=== PATIENT | female | born 1960 | race Caucasian/White ===

== ENCOUNTER → 2018-05-26 10:16 | Outpatient (CLI) | payer OTHER, SELFPAY ==
--- NOTE | 2018-05-26 | DI.MG.S_ITS ---
BILATERAL DIGITAL SCREENING MAMMOGRAM 3D/2D WITH CAD: 05/26/2018 CLINICAL: Routine screening. Family history of breast cancer. Comparison is made to exams dated: 04/20/2017 mammogram, 01/24/2016 mammogram, and 11/20/2014 mammogram - [facility]. The tissue of both breasts is heterogeneously dense. This may lower the sensitivity of mammography. Current study was also evaluated with a Computer Aided Detection (CAD) system. There are stable masses in the left breast. No significant masses, calcifications, or other findings are seen in either breast. There has been no significant interval change. IMPRESSION: BENIGN There is no mammographic evidence of malignancy. A 1 year screening mammogram is recommended. This exam was interpreted at Station ID: [id number]. NOTE: For mammograms, a report in lay terms will be sent to the patient. Approximately 15% of breast malignancies will not be visualized mammographically. In the management of a palpable breast mass, a negative mammogram must not discourage biopsy of a clinically suspicious lesion. Electronically Signed By: Jb Messina M.D. ecl/:05/26/2018 20:02:30 letter sent: Normal Exam ACR BI-RADS Category 2: Benign Finding(s) 3342F
== END ==
PROVIDERS: PCP Family Medicine; Visit Provider Family Medicine
DX: Z12.31 Encounter for screening mammogram for malignant neoplasm of breast (principal); Z80.3 Family history of malignant neoplasm of breast
CPT/HCPCS: 77063; 77067

== ENCOUNTER → 2018-07-11 08:25 | Outpatient (CLI) | payer OTHER, SELFPAY ==
[2018-07-11 09:26] LABS: Vitamin D 25 Hydroxy (D3) 66.8 ng/mL (30.0-100.0)
[2018-07-12 08:59] LABS: Free T3, Triiodothyronine Free 3.14 pg/mL (2.77-5.27)
== END ==
PROVIDERS: PCP Family Medicine; Visit Provider Family Medicine
DX: E03.9 Hypothyroidism, unspecified (principal); M85.80 Other specified disorders of bone density and structure, unspecified site
CPT/HCPCS: 36415; 82306; 84439; 84443; 84481

== ENCOUNTER → 2019-09-06 16:18 | Outpatient (CLI) | payer OTHER, SELFPAY ==
--- NOTE | 2019-09-06 | DI.MG.S_ITS ---
BILATERAL DIGITAL SCREENING MAMMOGRAM 3D/2D WITH CAD: 09/06/2019 CLINICAL: Routine screening. Family history of breast cancer. Comparison is made to exams dated: 05/26/2018 mammogram, 04/20/2017 mammogram, and 01/24/2016 mammogram - [facility]. There are scattered fibroglandular elements in both breasts. Current study was also evaluated with a Computer Aided Detection (CAD) system. There is a 0.9 cm oval focal asymmetry with an obscured margin in the left breast central to the nipple middle depth. This is more prominent and increased in size. There also is a stable benign oval equal density mass in the left breast at 12 o'clock anterior depth. This correlates with findings on prior exams. No other significant masses, calcifications, or other findings are seen in either breast. IMPRESSION: INCOMPLETE: NEEDS ADDITIONAL IMAGING EVALUATION The 0.9 cm oval focal asymmetry in the left breast central to the nipple middle depth is indeterminate. Additional views with possible ultrasound are recommended. This exam was interpreted at Station ID: [id number]. NOTE: For mammograms, a report in lay terms will be sent to the patient. Approximately 15% of breast malignancies will not be visualized mammographically. In the management of a palpable breast mass, a negative mammogram must not discourage biopsy of a clinically suspicious lesion. Electronically Signed By: Irving Shanks M.D. aty/:09/06/2019 16:43:07 letter sent: Additional Imaging Needed ACR BI-RADS Category 0: Incomplete 3340F
== END ==
PROVIDERS: PCP Family Medicine; Visit Provider Family Medicine
DX: Z12.31 Encounter for screening mammogram for malignant neoplasm of breast (principal); Z80.3 Family history of malignant neoplasm of breast
CPT/HCPCS: 77063; 77067

== ENCOUNTER 2019-09-16 04:19 | Inpatient (IN) | payer OTHER, SELFPAY ==
[2019-09-16] VITALS (7 sets, daily range): BP systolic 107–132; BP diastolic 55–74; PULSE 81–94; RESP 16–20; TEMP 37.1–38.2; O2SAT 94–99; BMI 26.5
--- NOTE | 2019-09-16 04:39 | ED.GENADULT ---
HPI - General Adult General Chief complaint: Abdominal Pain Stated complaint: abdominal pain, no real bowel movement x 1 wk Time Seen by Provider: 09/16/19 04:23 Source: patient Mode of arrival: Ambulatory Limitations: no limitations History of Present Illness HPI narrative: 59-year-old female here for evaluation of bilateral lower abdominal pain and constipation. Patient states she has had the lower abdominal pain for the past week or so but has worsened over the past day. No nausea or vomiting. No urinary symptoms. She states she has not had a bowel movement in the past week. She has passed very small amount of stool but nothing significant. Still passing flatus. No vomiting. Has had her gallbladder out in the past but no other abdominal surgeries. States she has had diverticulitis in the past. The last episode was 4-5 years ago. She was on antibiotics at that time. Since that time she feels like that she has had other episodes of diverticulitis however she states she does drink some fluids and changed her diet and the symptoms resolved on their own. Related Data Home Medications Medication Instructions Recorded Confirmed ASCORBIC ACID (VITAMIN C) 500 mg PO #0 10/27/12 CA PANTOTHENATE/FOLIC ACID/VIT 1 tab PO QDAY #0 10/27/12 (MULTIVITAMIN) CALCIUM ACETATE 667 mg PO PC #0 10/27/12 Fish Oil (Fish Oil 500 MG Softgel) 500 mg PO #0 10/27/12 Flaxseed Oil (#LINSEED OIL 1 ML) 1 ml NA #0 10/27/12 VITAMIN D (Vitamin D3) 1,000 unit PO QDAY #0 10/27/12 Previous Rx's Medication Instructions Recorded LEVOTHYROXINE SODIUM (LEVOTHROID) 0.05 mg PO QDAY #30 tab 07/24/13 Allergies Allergy/AdvReac Type Severity Reaction Status Date / Time Penicillins [PENICILLINS] Allergy Severe Swelling Verified 09/16/19 05:49 of Lip/Tongue/Throat Review of Systems Constitutional Constitutional: Denies fatigue and Denies fever(s) Cardiovascular Cardiovascular: Denies chest pain and Denies dyspnea Respiratory Respiratory: Denies dyspnea Gastrointestinal Gastrointestinal: Reports abdominal pain, Denies nausea and Denies vomiting Genitourinary Genitourinary: Denies dysuria and Denies pelvic pain Musculoskeletal Musculoskeletal: Denies myalgias and Denies arthralgias Integumentary/Breasts Skin/Breast: Denies lesions and Denies rash Neurologic Neurologic: Denies behavioral changes Psychiatric Psychiatric: Denies behavioral changes Endocrine Endocrine: Denies fatigue Hematologic/Lymphatic Hematologic/Lymphatic: Denies easy bleeding and Denies easy bruising Patient History Medical History (Updated 09/16/19 @ 06:30 by Bismark Valera DO) Diverticulitis (Acute) Surgical History History of cholecystectomy (Acute) Social History Smoking Status: Never smoker alcohol intake frequency: a few times a month Substance Use Type: does not use Exam Initial Vital Signs Initial Vital Signs: Vital Signs Temperature 99 F 09/16/19 04:29 Pulse Rate 92 H 09/16/19 04:29 Respiratory Rate 18 09/16/19 04:29 Blood Pressure 129/74 09/16/19 04:29 Pulse Oximetry 98 09/16/19 04:29 Const General: cooperative and comfortable Orientation: alert, awake and oriented x3 HENMT Head: normal to inspection and normocephalic Resp Effort & Inspection: normal respiratory effort Auscultation: clear to auscultation bilaterally Cardio Rate: regular rate Rhythm: regular rhythm GI Inspection: non-distended Palpation: soft, No firm and tender (Bilateral lower abdomen) Back/Spine/Pelvis Back: No CVA tenderness Skin Lesions: no lesions Rashes: no rashes Neuro General: alert, awake and oriented x3 Cognition: normal cognition Speech: speech normal Extrem General: normal to inspection and capillary refill normal Psych Appearance: grossly normal and well kempt Course Orders Ordered: ED Orders 09/16/19 04:40 CT abdomen pelvis w con Stat Complete Blood Count AUTO DIFF Stat Comprehensive Metabolic Panel Stat Lipase Stat Ciprofloxacin (Cipro) 400 mg in 200 mls @ 200 mls/hr IV NOW VIVEK Metronidazole (Flagyl) 500 mg in 100 mls @ 100 mls/hr IV NOW ONE Stop: 09/16/19 07:23 Last Admin: 09/16/19 06:34 Dose: 100 mls/hr Documented by: [email or web address] Discontinued Medications Sodium Chloride (Normal Saline 0.9%) 1,000 mls @ 1,000 mls/hr IV BOLUS ONE Stop: 09/16/19 05:38 Last Infusion: 09/16/19 05:48 Dose: 1,000 mls/hr Documented by: TERESITAFARConsuelo Admin: 09/16/19 04:43 Dose: 1,000 mls/hr Documented by: MANDI Vital Signs Vital signs: Vital Signs - 8 hr 09/16/19 04:29 09/16/19 06:15 Temperature 99 F Pulse Rate 92 H 92 H Respiratory Rate 18 20 Blood Pressure 129/74 Blood Pressure [Left Arm] 109/69 Pulse Oximetry 98 99 Medical Decision Making Lab Data Lab results reviewed: Yes I reviewed the patient's lab results. Result diagrams: 09/16/19 04:40 09/16/19 04:40 Labs: Lab Results 09/16/19 09/16/19 Range/Units 04:40 04:40 WBC 11.3 H (4.5-11.0) X10^3/uL RBC 3.84 L (4.0-5.2) X10^6/uL Hgb 12.4 (12.0-16.0) g/dL Hct 36.2 (36-46) % MCV 94.3 (80-100) fL MCH 32.3 (26-34) PG MCHC 34.3 (30-36) % RDW 13.3 (11.6-14.8) % Plt Count 251 (150-400) X10^3/uL Neut % (Auto) 71.9 (50-75) % Lymph % (Auto) 17.6 L (25-40) % [place] % (Auto) 8.4 (3-14) % Eos % (Auto) 1.6 L (2-4) % Baso % (Auto) 0.5 (0-2) % Neut # (Auto) 8100 H (8712-5593) /uL Lymph # (Auto) 2000 (2340-1742) /uL [place] # (Auto) 900 (0-900) /uL Eos # (Auto) 200 (0-450) /uL Baso # (Auto) 100 (0-100) /uL Sodium 139 (137-145) mmol/L Potassium 3.7 (3.4-5.1) mmol/L Chloride 106 (98-107) mmol/L Carbon Dioxide 26 (22-32) mmol/L BUN 12 (7-17) mg/dL Creatinine 0.90 (0.52-1.04) mg/dL Estimated GFR > 60.0 (>60) mL/min BUN/Creatinine Ratio 13.3 (6-22) Glucose 117 H (70-100) mg/dL Calcium 9.3 (8.4-10.2) mg/dL Total Bilirubin 0.8 (0.2-1.3) mg/dL AST 23 (14-36) IU/L ALT 22 (<35) IU/L Alkaline Phosphatase 86 (38-126) U/L Total Protein 7.2 (6.3-8.2) g/dL Albumin 4.1 (3.5-5.0) g/dL Globulin 3.1 (1.7-4.1) g/dL Albumin/Globulin Ratio 1.3 (1.0-2.8) Lipase 68 (23-300) U/L Imaging Data CT scan - abdomen: Radiologist's impression: A prominent diverticulitis of the sigmoid colon. There is either large diverticulum versus abscess adjacent to the sigmoid colon. Does have a slight leukocytosis but is afebrile. I did discuss the case with Dr. Urena with General surgery who did evaluate the CT scan. She also came into the emergency department evaluate the patient. After discussion will admit the patient for IV antibiotics. Discharge Plan Departure Patient Disposition: Admitted As Inpatient Clinical Impression: Diverticulitis Referrals: Caden Rivero MD [Primary Care Provider] -
--- NOTE | 2019-09-16 04:40 | DI.CT.S_ITS ---
PROCEDURE: CT ABDOMEN PELVIS W CON INDICATIONS: Bilateral lower abdominal pain, history of diverticulitis, TECHNIQUE: After the administration of intravenous contrast, 5 mm thick sections acquired from the diaphragm to the symphysis. 5 mm coronal and sagittal reformats were acquired. For radiation dose reduction, the following was used: automated exposure control, adjustment of mA and/or kV according to patient size. COMPARISON: [facility], CT, ABDOMEN/PELVIS WITH CONTRAST, 12/06/2015, 9:41. FINDINGS: Image quality: Excellent. ABDOMEN: Lung bases: Lung bases are clear. Heart size is normal. Solid organs: Liver is normal in size and enhancement. Gallbladder has been removed. Biliary system is non dilated. Pancreas enhances normally. Spleen is normal in size and enhancement. No adrenal nodules. Kidneys demonstrate normal size and enhancement, without hydronephrosis. Peritoneum and bowel: Focal moderate wall thickening with surrounding inflammatory change can be seen involving the sigmoid colon. Abundant diverticula formation can be seen within this region. Adjacent to the sigmoid colon, as on series 2 image 68, there is a focal collection of gas and fluid seen that measures 3.1 x 2.4 cm. No dilated loops of small bowel are seen. No wall thickening can be seen elsewhere. Incidental note is made of a normal-appearing appendix. Nodes and vessels: No retroperitoneal or mesenteric adenopathy by size criteria. Aorta and inferior vena cava are normal in size. Miscellaneous: No ventral hernias. PELVIS: Genitourinary: Bladder wall thickness is normal. Miscellaneous: No inguinal hernias or adenopathy. Bones: No suspicious bony lesions. No vertebral body compression fractures. IMPRESSION: Moderate to prominent diverticulitis. Adjacent to the sigmoid colon, there is a likely developing abscess seen. Differential diagnosis in a large diverticulum, yet this is considered to be less likely. Please consider short-term followup. Incidental note is made of: Cholecystectomy Normal appendix Note: No significant discrepancy from the preliminary report. Dictated by: Andre Lama M.D. on 09/16/2019 at 8:21 Approved by: Andre Lama M.D. on 09/16/2019 at 8:29
[2019-09-16] MEDS: SODIUM CHLORIDE 0.9% 1,000 ML 1000 ML IV (04:43)
[2019-09-16 04:58] LABS: Add Manual Diff / Slide Review NO; Basophils Absolute Auto 100 /uL (0-100); Basophils Percent Auto 0.5 % (0-2); Eosinophils Absolute Auto 200 /uL (0-450); Eosinophils Percent Auto 1.6 % (2-4); Hematocrit 36.2 % (36-46); Hemoglobin 12.4 g/dL (12.0-16.0); Lymphocytes Absolute Auto 2000 /uL (1100-4500); Lymphocytes Percent Auto 17.6 % (25-40); Mean Corpuscular HGB Conc 34.3 % (30-36); Mean Corpuscular Hemoglobin 32.3 PG (26-34); Mean Corpuscular Volume 94.3 fL (80-100); Monocytes Absolute Auto 900 /uL (0-900); Monocytes Percent Auto 8.4 % (3-14); Neutrophils Absolute Auto 8100 /uL (1500-7000); Neutrophils Percent Auto 71.9 % (50-75); Platelet Count 251 X10^3/uL (150-400); Red Blood Cell Count 3.84 X10^6/uL (4.0-5.2); Red Cell Distribution Width 13.3 % (11.6-14.8); White Blood Cell Count 11.3 X10^3/uL (4.5-11.0)
[2019-09-16 05:11] LABS: Alanine Aminotransferase 22 IU/L (<35); Albumin 4.1 g/dL (3.5-5.0); Albumin Globulin Ratio 1.3 (1.0-2.8); Alkaline Phosphatase 86 U/L (38-126); Aspartate Aminotransferase 23 IU/L (14-36); BUN Creatinine Ratio 13.3 (6-22); Bilirubin Total 0.8 mg/dL (0.2-1.3); Blood Urea Nitrogen 12 mg/dL (7-17); Calcium 9.3 mg/dL (8.4-10.2); Carbon Dioxide 26 mmol/L (22-32); Chloride 106 mmol/L (98-107); Estimated Glomerular Filt Rate > 60.0 mL/min (>60); Globulin 3.1 g/dL (1.7-4.1); Glucose 117 mg/dL (70-100); HEMOLYSIS < 15 (0-50); Lipase 68 U/L (23-300); Potassium 3.7 mmol/L (3.4-5.1); Sodium 139 mmol/L (137-145); Total Protein 7.2 g/dL (6.3-8.2)
[2019-09-16] MEDS: metroNIDAZOLE 500 MG/100 ML PIGGYBACK 100 MG IV ×3 (06:34→18:56)
--- NOTE | 2019-09-16 06:52 | P.HP_ITS ---
History of Present Illness History of Present Illness Date Patient Seen: 09/16/19 Time Patient Seen: 06:52 Chief complaint: abdominal pain, no real bowel movement x 1 wk Narrative: This is a 59-year-old woman who has a history of diverticulosis, diverticulitis, hypothyroid, cholecystectomy, and who comes in with a 1 week history of lower abdominal pain and constipation. She normally has a well-formed bowel movement about once daily. She denies having to strain or sit for long on the toilet to have a bowel movement in her usual case. She believes she last had a colonoscopy about 5 years ago after a bout of severe abdominal pain. She was told the colonoscopy showed diverticulosis, but no other significant findings per the patient. About 1 week ago she started having lower abdominal pain, and she noticed at the same time that she was not able to pass a normal bowel movement. She was able to pass gas, and she denies nausea or vomiting. She drink lots of water and tried some fiber supplements such as Metamucil and fiber wafers, and then she additionally tried some ?colon cleanse.? She took the colon cleanse evening, and during the night started to feel more severe pain in her abdomen. She continues passing gas throughout these events, but has passed very little stool. She came into the ER because the severe pain was becoming more prominent and unrelenting. In the ER her labs showed a slight leukocytosis, and her CT scan showed a significant inflammatory process in the lower abdomen around her sigmoid colon. It appears that she has both acute and chronic diverticulitis, as well as a somewhat amorphous phlegmon with some component of abscess in it surrounding the sigmoid colon. There is no official read in the chart yet, but per the radiologist report to the ER doctor they are calling a prominent diverticulitis of the sigmoid colon with either large diverticulum versus abscess adjacent to the sigmoid colon. ROS: The patient denies dysuria, weight changes, melena, hematochezia, or subjective fevers. Thirteen system review is otherwise negative other than as mentioned below and in HPI. PE: GENERAL: Comfortable, but fatigued appearing. Appears stated age. Answers questions promptly and appropriately. Vital signs noted. HENT: Normocephalic, atraumatic. Hearing intact. Oral mucosa is pink and moist. EYES: Conjunctiva pink, sclera white, no periorbital swelling. CARDIOVASCULAR: Regular rate. No pedal edema. RESPIRATORY: Non tachypneic, breathing comfortably on room air. GASTROINTESTINAL: Abdomen soft and mildly distended, focal left lower quadrant tenderness to palpation. No diffuse peritoneal signs. GENITALURINARY: No flank tenderness. MUSCULOSKELETAL: Equal tone and mass bilaterally. SKIN: Warm, dry, soft, appropriate color for ethnicity. No other lesions, rashes, or wounds. NEURO: Alert and Oriented X 3. No gross sensory deficits, or cognitive dysfunction. PSYCH: Appropriate affect and mood. Patient History Medical History (Updated 09/16/19 @ 07:01 by Prudence Urena MD) Diverticulitis (Acute) Surgical History History of cholecystectomy (Acute) Family & Social History Family History (Updated 09/16/19 @ 07:02 by Prudence Urena MD) Grandmother Cancer Safety & Behavioral: Feels Safe in Current Yes Environment Tobacco & Substance use: Smoking Status Never smoker alcohol intake frequency a few times a month Substance Use Type does not use Meds Home Medications and Allergies Home Medications Medication Instructions Recorded Confirmed Type ASCORBIC ACID (VITAMIN C) 500 mg PO #0 10/27/12 History CA PANTOTHENATE/FOLIC ACID/VIT 1 tab PO QDAY #0 10/27/12 History (MULTIVITAMIN) CALCIUM ACETATE 667 mg PO PC #0 10/27/12 History Fish Oil (Fish Oil 500 MG Softgel) 500 mg PO #0 10/27/12 History Flaxseed Oil (#LINSEED OIL 1 ML) 1 ml NA #0 10/27/12 History VITAMIN D (Vitamin D3) 1,000 unit PO QDAY #0 10/27/12 History LEVOTHYROXINE SODIUM (LEVOTHROID) 0.05 mg PO QDAY #30 tab 07/24/13 Rx Allergies Allergy/AdvReac Type Severity Reaction Status Date / Time Penicillins [PENICILLINS] Allergy Severe Swelling Verified 09/16/19 05:49 of Lip/Tongue/Throat Exam Vital Signs (past 8 hours): - 09/16/19 04:29 09/16/19 06:15 Temperature 99 F Pulse Rate 92 H 92 H Respiratory Rate 18 20 Blood Pressure 129/74 Blood Pressure [Left Arm] 109/69 Pulse Oximetry 98 99 Oxygen Delivery Method Room Air Objective Imaging CT scan - abdomen: My impression: Acute on chronic diverticulitis, with an abscess/phlegmon surrounding the sigmoid colon with severe kinking and scarring of the sigmoid colon Radiologist's impression: Official read pending. Prelim read: A prominent diverticulitis of the sigmoid colon. There is either large diverticulum versus abscess adjacent to the sigmoid colon. Labs Result Diagrams: 09/16/19 04:40 09/16/19 04:40 Labs: Laboratory Results - last 24 hr 09/16/19 09/16/19 04:40 04:40 WBC 11.3 H RBC 3.84 L Hgb 12.4 Hct 36.2 MCV 94.3 MCH 32.3 MCHC 34.3 RDW 13.3 Plt Count 251 Neut % (Auto) 71.9 Lymph % (Auto) 17.6 L [place] % (Auto) 8.4 Eos % (Auto) 1.6 L Baso % (Auto) 0.5 Neut # (Auto) 8100 H Lymph # (Auto) 2000 [place] # (Auto) 900 Eos # (Auto) 200 Baso # (Auto) 100 Sodium 139 Potassium 3.7 Chloride 106 Carbon Dioxide 26 BUN 12 Creatinine 0.90 Estimated GFR > 60.0 BUN/Creatinine Ratio 13.3 Glucose 117 H Calcium 9.3 Total Bilirubin 0.8 AST 23 ALT 22 Alkaline Phosphatase 86 Total Protein 7.2 Albumin 4.1 Globulin 3.1 Albumin/Globulin Ratio 1.3 Lipase 68 Assessment & Plan Assessment and plan (1) Diverticulitis: Current visit: Yes Status: Acute (2) Hypothyroid: Current visit: Yes Status: Acute (3) Leukocytosis: Current visit: Yes Status: Acute (4) History of diverticulosis: Problem details: On my review of the patient's chart I was able to find a colonoscopy report from Dr. Albarado from 2016. The summary of his report is as follows: 1. Extensive sigmoid diverticulosis and scattered through the rest of the colon. This segment does seem tighter and more fixed than the rest. Currently no changes. 2. Otherwise negative colonoscopy to cecum. 3. Followup colonoscopy in 10 years. In the meantime, as long as she has no pain I would do nothing further, but if she does we should re-CT her in anticipation of needing a sigmoid colectomy. Current visit: Yes Status: Acute Assessment & Plan narrative: This is a 59-year-old woman with acute on chronic diverticulitis. She has a CT scan concerning for an abscess or phlegmon around the sigmoid colon. She has had very little stool output for the past week. Her pain has dramatically increased in the last 2 days. She has the leukocytosis. I had a long discussion with the patient and her regarding the options for her care. If she were to go home I cannot assure her that she is not going to worsen, or become septic due to what's going on around her sigmoid colon. Although CT scan is not a perfect damage, it gives us a strong idea what's going on there, and it is concerning for an acute inflammatory process that likely includes some focal perforation of the colon. As she has not had a bowel movement for about a week, I have some concern that she may be developing an obstruction there. The colon is quite kinked at the area of the abscess/phlegmon. I have discussed with her the possibility that she may need surgery during this admission. However, our goal will be to get her through this with antibiotics to reduce the infection and inflammation and hopefully allow her colon to open up and passed stool through. If she is able to do this, we will hopefully be able to do a sigmoid colectomy on her at an elective time in the future and avoid a colostomy. I have told her that if she does not improve, or if she worsens such that we need to go in urgently and do surgery on this admission, and she has a moderate chance of ending up with a colostomy during this hospital admission. We will try to avoid this for her. She is otherwise healthy, and I think of she has a good chance of getting through this with just medical management on this event. We will keep her p.o. intake very minimal for right now with sips of water and ice chips for comfort, advancing her as tolerated We will not give her any major bowel regimen at this point, but given the bowel a chance to rest and the antibiotics to have a chance to work IV fluids, and replete her electrolytes as needed Ambulate as much as tolerated DVT prophylaxis Labs daily, more frequently if needed IV antibiotics to include Cipro and Flagyl as she has a remote history of penicillin allergy Continue her home levothyroxine 28 minutes were spent face to face with the patient. More than 50% of the time was spent in counseling and co-ordination of care regarding the cause of her symptoms, the concern for worsening her symptoms, the surgical options should she need surgery on this admission, the future surgical indications, and the expectations for this admission. I rishabh pictures for the patient and her help explain what's going on with her. An additional 20 minutes were spent reviewing her historical chart and discussing her case with Dr. Valera. Time Spent With Patient Time with patient: Greater than 35 minutes Scores [facility]CS [place] coma scale eye opening: Spontaneous Thais coma scale verbal response: Orientated Thais coma scale motor response: Obey commands [place] coma scale total score: 15 Quality VTE Deep Vein Thrombosis/Pulmonary Embolism Present on Admission: No
[2019-09-16] MEDS: CIPROFLOXACIN 400 MG/200 ML PIGGYBACK 200 MG IV ×2 (07:40→21:38)
[2019-09-16] MEDS: LACTATED RINGERS 1,000 ML 125 ML IV ×2 (09:06→17:34)
--- NOTE | 2019-09-16 10:06 | CM.DANOTE ---
DCP: Case received, EMR reviewed and met with patient. Introduced self and role. Was able to meet briefly with patient in her room in order to received baseline health and activity information. DCP assessment completed with information currently available. Patient is a 59 year old female who admitted early this morning to the care of the hospitalist team. PCP: Dr. Rivero. Payer: confirmed: [facility]. Patient came to the hospital via family vehicle secondary to abdominal pain, and constipation. Patient has history of diverticulitis. Patient holds diagnosis of diverticulitis of the sigmoid colon. At this time, she is here for bowel rest and IV antibiotics. Patient is alert and oriented, lives here in [place] with her spouse, Caden. She is independent, drives. Patient mentioned that she has this history with her diverticulitis. She stated that they should not have to do any surgery. P: DCP to continue to follow. Patient should be able to go home when she is medically stable. Noy Richard RN/[employer]
[2019-09-16] MEDS: LEVOTHYROXINE 50 MCG TABLET PO (12:50)
--- NOTE | 2019-09-16 21:16 | PC.NURSE ---
Addendum entered by Libia Gerber R.N. 09/16/19 22:26: IV started to R wrist/forearm by Sophia GANN. Pt with small circular area around IV insertion site that is dull pink, appears as skin irritation, IV flushing & infusing well, IV Cipro infused with no difficulty. Pt tolerated well. She remains Ox3 and to situation, denies pain or nausea tonight, VS stable. Reminded to call staff if she has any needs/concerns. Original Note: Evening note: Christine resting tonight, reports less abdomen pain, describing it as intermittent instead of all the time. Mostly complaining of headache pain 5/10, wondering if it is from not having her daily coffee, after giving few sips of coffee she said that DAMIAN was gone. Ambulated in hallways x 2 with her . IV leaking small amt of clear fluid on linen under her LUE, after taking drsg off I found cannula hub loose, hub tightened to J-loop, IV still continues to leak clear fluid when pump infusing. No redness/swelling observed to skin. IV removed. After removing IV and all adhesives, skin to AC now erythemic & pink under where tape & tegaderm had been. I attempted IV restart to L hand, I could not advance cannula, IV not flushing. Pressure drsg applied.
--- NOTE | 2019-09-16 21:34 | PC.NURSE ---
New IV started d/t Lf Ac leaking per primary RN. one attempt by Libia GANN without success and one attempt by this RN, placed and flushed well.
[2019-09-17] VITALS (7 sets, daily range): BP systolic 107–112; BP diastolic 60–66; PULSE 86–96; RESP 16–18; TEMP 36.9–38.1; O2SAT 95–98
[2019-09-17] MEDS: metroNIDAZOLE 500 MG/100 ML PIGGYBACK 100 MG IV ×4 (00:11→19:48)
[2019-09-17] MEDS: LACTATED RINGERS 1,000 ML 125 ML IV (05:05)
[2019-09-17 05:43] LABS: Add Manual Diff / Slide Review NO; Basophils Absolute Auto 100 /uL (0-100); Basophils Percent Auto 1.1 % (0-2); Eosinophils Absolute Auto 0 /uL (0-450); Eosinophils Percent Auto 0.2 % (2-4); Hematocrit 34.2 % (36-46); Hemoglobin 11.6 g/dL (12.0-16.0); Lymphocytes Absolute Auto 1900 /uL (1100-4500); Lymphocytes Percent Auto 14.7 % (25-40); Mean Corpuscular HGB Conc 34.1 % (30-36); Mean Corpuscular Hemoglobin 32.1 PG (26-34); Mean Corpuscular Volume 94.2 fL (80-100); Monocytes Absolute Auto 1100 /uL (0-900); Monocytes Percent Auto 8.5 % (3-14); Neutrophils Absolute Auto 9800 /uL (1500-7000); Neutrophils Percent Auto 75.5 % (50-75); Platelet Count 227 X10^3/uL (150-400); Red Blood Cell Count 3.63 X10^6/uL (4.0-5.2)
[2019-09-17 05:51] LABS: BUN Creatinine Ratio 11.4 (6-22); Blood Urea Nitrogen 8 mg/dL (7-17); Calcium 8.8 mg/dL (8.4-10.2); Carbon Dioxide 24 mmol/L (22-32); Chloride 105 mmol/L (98-107); Estimated Glomerular Filt Rate > 60.0 mL/min (>60); Glucose 110 mg/dL (70-100); HEMOLYSIS < 15 (0-50); Potassium 3.6 mmol/L (3.4-5.1); Sodium 137 mmol/L (137-145)
[2019-09-17] MEDS: LEVOTHYROXINE 50 MCG TABLET PO (06:35)
[2019-09-17] MEDS: ENOXAPARIN 40 MG/0.4 ML SYRINGE SUBCUT (08:44)
[2019-09-17] MEDS: CIPROFLOXACIN 400 MG/200 ML PIGGYBACK 200 MG IV ×2 (08:44→21:13)
--- NOTE | 2019-09-17 11:27 | P.PN_ITS ---
Subjective Subjective Date Patient Seen: 09/17/19 Time Patient Seen: 11:27 Interval history: The patient is a woman under treatment for acute diverticulitis. She is having less pain though when she had 2 small bowel movements through the night she had severe pain when she was having them. She also had additional bowel movements yesterday. She thinks she is feeling a little better. Exam Vital Signs (past 8 hours): - 09/17/19 04:50 09/17/19 08:00 Temperature 99.7 F H 99.1 F Pulse Rate 90 88 Respiratory Rate 18 18 Blood Pressure 111/62 112/64 Pulse Oximetry 95 96 Oxygen Delivery Method Room Air Oxygen Flow Rate 0 Narrative Exam Narrative: Lungs are clear to auscultation with good effort. Heart regular rate and rhythm without murmur gallop. Hyperactive bowel sounds. Mild distention. No tenderness.(this is an improvement from yesterday) Objective Labs Result Diagrams: 09/17/19 05:15 09/17/19 05:15 Labs: Laboratory Results - last 24 hr 09/17/19 09/17/19 05:15 05:15 WBC 13.0 H RBC 3.63 L Hgb 11.6 L Hct 34.2 L MCV 94.2 MCH 32.1 MCHC 34.1 RDW 13.0 Plt Count 227 Neut % (Auto) 75.5 H Lymph % (Auto) 14.7 L [place] % (Auto) 8.5 Eos % (Auto) 0.2 L Baso % (Auto) 1.1 Neut # (Auto) 9800 H Lymph # (Auto) 1900 [place] # (Auto) 1100 H Eos # (Auto) 0 Baso # (Auto) 100 Sodium 137 Potassium 3.6 Chloride 105 Carbon Dioxide 24 BUN 8 Creatinine 0.70 Estimated GFR > 60.0 BUN/Creatinine Ratio 11.4 Glucose 110 H Calcium 8.8 Magnesium 2.0 Assessment & Plan Assessment & Plan narrative: Patient is clinically improved having bowel movements and feeling better. She is no longer tender. Worrisome however as the fact that her white blood cell count went up, her differential is still mostly segs, and she had a low-grade temperature last night. I think I can start her on clear liquids though I advised her not to take everything. We will repeat her labs in the morning. Will repeat her CT scan tomorrow. She has been ambulating extensively and can continue to do so. Quality VTE Deep Vein Thrombosis/Pulmonary Embolism Present on Admission: No
[2019-09-17] MEDS: DEXTROSE 5%-LACTATED RINGERS 1,000 ML 100 ML IV (13:14)
[2019-09-18] MEDS: metroNIDAZOLE 500 MG/100 ML PIGGYBACK 100 MG IV ×4 (00:26→19:03)
[2019-09-18 00:30] VITALS: BP 95/59; PULSE 87; RESP 18; TEMP 37.6; O2SAT 97
--- NOTE | 2019-09-18 00:49 | PC.NURSE ---
Addendum entered by Inna Hernandez R.N. 09/18/19 07:05: Just had very small pebble like stool which she states is still extremely painful but calms down once she is done defecating so declines pain med/warm blanket. Urine is dark tea colored. Addendum entered by Inna Hernandez R.N. 09/18/19 06:59: Has had no stools during the night. Denies any nausea. States lower abdominal pain is 1-2/10 but declines pain medication. Original Note: Patient is alert and oriented. Breath sounds CTA with RA sat of 97%. HRR. BP low at 95/59 (baseline is low) which slightly lower than baseline but patient is asymptomatic. Did discuss sitting on edge of bed prior to getting out of bed and if experiencing any dizziness or lightheadedness patient agrees to call for staff assistance when getting out of bed. Denies nausea. BT hyperactive; abdomen is soft. Is passing flatus along with loose stools and states she has excruciating pain with defecation but only tender after. Tenderness across lower abdomen but declines need for pain medication. Able to turn self in bed and is independent to bathroom so refusing SCD's at this time. Fall risk score is low.
[2019-09-18] MEDS: DEXTROSE 5%-LACTATED RINGERS 1,000 ML 100 ML IV ×2 (03:03→16:43)
[2019-09-18 03:20] VITALS: BP 104/57; PULSE 86; RESP 18; TEMP 37.2; O2SAT 95
[2019-09-18 05:47] LABS: BUN Creatinine Ratio 5.7 (6-22); Blood Urea Nitrogen 4 mg/dL (7-17); Calcium 8.5 mg/dL (8.4-10.2); Carbon Dioxide 25 mmol/L (22-32); Chloride 108 mmol/L (98-107); Estimated Glomerular Filt Rate > 60.0 mL/min (>60); Glucose 153 mg/dL (70-100); HEMOLYSIS < 15 (0-50); Magnesium 2.1 mg/dL (1.6-2.3); Potassium 3.5 mmol/L (3.4-5.1); Sodium 139 mmol/L (137-145)
[2019-09-18 05:59] LABS: Add Manual Diff / Slide Review NO; Basophils Absolute Auto 100 /uL (0-100); Basophils Percent Auto 0.6 % (0-2); Eosinophils Absolute Auto 0 /uL (0-450); Eosinophils Percent Auto 0.4 % (2-4); Hematocrit 30.9 % (36-46); Hemoglobin 10.7 g/dL (12.0-16.0); Lymphocytes Absolute Auto 1800 /uL (1100-4500); Mean Corpuscular HGB Conc 34.5 % (30-36); Mean Corpuscular Hemoglobin 32.5 PG (26-34); Mean Corpuscular Volume 94.1 fL (80-100); Monocytes Absolute Auto 1000 /uL (0-900); Monocytes Percent Auto 9.3 % (3-14); Neutrophils Absolute Auto 7600 /uL (1500-7000); Neutrophils Percent Auto 72.7 % (50-75); Platelet Count 201 X10^3/uL (150-400); Red Blood Cell Count 3.28 X10^6/uL (4.0-5.2); Red Cell Distribution Width 13.3 % (11.6-14.8); White Blood Cell Count 10.5 X10^3/uL (4.5-11.0)
[2019-09-18] MEDS: LEVOTHYROXINE 50 MCG TABLET PO (06:38)
--- NOTE | 2019-09-18 07:44 | CM.DPC ---
DCP Cont: Per Surgeon, pt had a couple of bowel movements with some tenderness and pt is feeling slightly better as has been able to ambulate extensively around the floor and will continue to encourage ambulation and will begin slowly advancing her diet but pt did have a slight fever and white count increase and MD will continue to monitor. Plan: DCP to follow closely to see if pt can tolerate advancing diet and continue to have bowel movements and confirm that pt's fever has improved towards confirming pt will be safe for return home with spouse when stable. ELLIE Clemons
[2019-09-18] MEDS: CIPROFLOXACIN 400 MG/200 ML PIGGYBACK 200 MG IV ×2 (08:07→20:35)
[2019-09-18] MEDS: ENOXAPARIN 40 MG/0.4 ML SYRINGE SUBCUT (08:07)
--- NOTE | 2019-09-18 09:52 | DI.CT.S_ITS ---
PROCEDURE: CT ABDOMEN PELVIS W CON INDICATIONS: f/u diverticulitis r/o abscess TECHNIQUE: After the administration of oral and intravenous contrast, 5 mm thick sections acquired from the diaphragms to the symphysis. 5 mm thick coronal and sagittal reformats were performed. For radiation dose reduction, the following was used: automated exposure control, adjustment of mA and/or kV according to patient size. COMPARISON: [facility], CT, CT ABDOMEN PELVIS W CON, 09/16/2019, 4:39. [facility], CT, ABDOMEN/PELVIS WITH CONTRAST, 12/06/2015, 9:41. FINDINGS: Image quality: Excellent. ABDOMEN: Lung bases: Lung bases are clear. Heart size is normal. Solid organs: Liver is normal in size and enhancement. Gallbladder has been previously resected. Biliary system is non-dilated. Pancreas enhances normally. Spleen is normal in size and enhancement. No adrenal nodules. Kidneys are normal in size and enhancement, without hydronephrosis. Peritoneum and bowel: Stomach, small bowel, and colon loops are normal in caliber and wall thickness. No free fluid or air. Nodes and vessels: No retroperitoneal or mesenteric adenopathy. Aorta and inferior vena cava are normal in caliber. Miscellaneous: No ventral hernias. PELVIS: Genitourinary: Bladder wall thickness is normal. Miscellaneous: No inguinal hernias or adenopathy. The prominent sigmoid colon mural thickening and inflammation is again noted, with what appears to be an intramural abscess small in size, measuring only approximately 2.4 cm craniocaudad, 2.0 cm transverse, and 3.3 cm AP. This represents the area of prior concern, and is only slightly increased in size from prior dimensions of approximately 3.1 cm AP, 2.2 cm transverse, and 2.4 cm craniocaudad. Bones: No suspicious bony lesions. No vertebral body compression fractures. IMPRESSION: Persistent prominent diverticulitis involves the sigmoid colon, with a small intramural abscess slightly enlarged from the comparison study, inaccessible for CT or ultrasound-guided drainage, and small in size to the degree that antibiotic therapy likely will resolve this particular finding. No new inflammation or abscess is found elsewhere. Dictated by: Wyatt Navarro M.D. on 09/18/2019 at 10:35 Approved by: Wyatt Navarro M.D. on 09/18/2019 at 10:41
[2019-09-18 19:50] VITALS: BP 109/62; PULSE 87; RESP 17; TEMP 37.4; O2SAT 96
--- NOTE | 2019-09-18 20:16 | P.PN_ITS ---
Subjective Subjective Date Patient Seen: 09/18/19 Time Patient Seen: 20:16 Interval history: Patient feeling better than yesterday. Tolerating liquids. Not having bowel movements a longer. Exam Vital Signs (past 8 hours): - 09/18/19 19:50 Temperature 99.4 F Pulse Rate 87 Respiratory Rate 17 Blood Pressure 109/62 Pulse Oximetry 96 Oxygen Delivery Method Room Air Oxygen Flow Rate 0 Narrative Exam Narrative: Had a low-grade temp last night. Her abdomen is soft nontender. No guarding and no masses. Objective Imaging CT scan - abdomen: My impression: Abscess involving her sigmoid colon. Still was a significant amount of thickening of the sigmoid. Labs Result Diagrams: 09/18/19 05:30 09/18/19 05:30 Labs: Laboratory Results - last 24 hr 09/18/19 09/18/19 05:30 05:30 WBC 10.5 RBC 3.28 L Hgb 10.7 L Hct 30.9 L MCV 94.1 MCH 32.5 MCHC 34.5 RDW 13.3 Plt Count 201 Neut % (Auto) 72.7 Lymph % (Auto) 17.0 L [place] % (Auto) 9.3 Eos % (Auto) 0.4 L Baso % (Auto) 0.6 Neut # (Auto) 7600 H Lymph # (Auto) 1800 [place] # (Auto) 1000 H Eos # (Auto) 0 Baso # (Auto) 100 Sodium 139 Potassium 3.5 Chloride 108 H Carbon Dioxide 25 BUN 4 L Creatinine 0.70 Estimated GFR > 60.0 BUN/Creatinine Ratio 5.7 L Glucose 153 H Calcium 8.5 Magnesium 2.1 Assessment & Plan Assessment & Plan narrative: Patient has developed a diverticular abscess in addition to her diverticulitis. She seems to be responding to IV antibiotics well. White blood cell count has come down to normal she is pain free. However this abscess does at a bit a complexity to her care. She will probably ultimately come to operation but hopefully this can be treated with antibiotics to reside at resolution and then electively she can undergo at resection. Continue her IV antibiotics at this time. Dr. Urena will return tomorrow. Quality VTE Deep Vein Thrombosis/Pulmonary Embolism Present on Admission: No
[2019-09-19 00:25] VITALS: BP 105/60; PULSE 83; RESP 18; TEMP 37.2; O2SAT 96
[2019-09-19] MEDS: metroNIDAZOLE 500 MG/100 ML PIGGYBACK 100 MG IV ×4 (00:51→17:35)
--- NOTE | 2019-09-19 01:14 | PC.NURSE ---
Patient is alert and oriented. Breath sounds CTA with RA sat of 96%. HRR. Denies current nausea and states she was able to take in more clear liquids yesterday without nausea. BT hyperactive and lower abdomen is tender although she states less so. Still states she is having severe pain when stooling. Independent with mobility. Declines use of SCD's. Fall risk score is low.
[2019-09-19 04:53] VITALS: BP 97/60; PULSE 82; RESP 18; TEMP 36.9; O2SAT 96
[2019-09-19] MEDS: DEXTROSE 5%-LACTATED RINGERS 1,000 ML 100 ML IV ×2 (04:53→17:41)
[2019-09-19 05:56] LABS: Add Manual Diff / Slide Review NO; Basophils Absolute Auto 200 /uL (0-100); Basophils Percent Auto 1.5 % (0-2); Eosinophils Absolute Auto 100 /uL (0-450); Eosinophils Percent Auto 0.9 % (2-4); Hematocrit 34.8 % (36-46); Hemoglobin 11.8 g/dL (12.0-16.0); Lymphocytes Absolute Auto 2800 /uL (1100-4500); Lymphocytes Percent Auto 24.5 % (25-40); Mean Corpuscular HGB Conc 33.9 % (30-36); Mean Corpuscular Volume 94.5 fL (80-100); Monocytes Absolute Auto 1000 /uL (0-900); Monocytes Percent Auto 9.1 % (3-14); Neutrophils Absolute Auto 7200 /uL (1500-7000); Platelet Count 268 X10^3/uL (150-400); Red Blood Cell Count 3.68 X10^6/uL (4.0-5.2); Red Cell Distribution Width 13.7 % (11.6-14.8); White Blood Cell Count 11.3 X10^3/uL (4.5-11.0)
[2019-09-19 06:04] LABS: BUN Creatinine Ratio 4.3 (6-22); Blood Urea Nitrogen 3 mg/dL (7-17); Calcium 8.9 mg/dL (8.4-10.2); Carbon Dioxide 28 mmol/L (22-32); Chloride 105 mmol/L (98-107); Estimated Glomerular Filt Rate > 60.0 mL/min (>60); Glucose 141 mg/dL (70-100); HEMOLYSIS < 15 (0-50); Magnesium 2.1 mg/dL (1.6-2.3); Potassium 3.3 mmol/L (3.4-5.1); Sodium 140 mmol/L (137-145)
[2019-09-19] MEDS: LEVOTHYROXINE 50 MCG TABLET PO (06:16)
[2019-09-19 08:00] VITALS: BP 109/67; PULSE 81; RESP 16; TEMP 37.1; O2SAT 97
--- NOTE | 2019-09-19 08:53 | PM.PN.1 ---
Subjective Subjective Date Patient Seen: 09/19/19 Time Patient Seen: 08:55 Interval history: No acute events overnight. The patient denies baseline pain, but feels significant pain when she tries to pass a bowel movement including cramping and sharp pain. She denies subjective fevers, nausea, vomiting. Exam Vital Signs (past 8 hours): - 09/19/19 04:53 Temperature 98.4 F Pulse Rate 82 Respiratory Rate 18 Blood Pressure 97/60 Pulse Oximetry 96 Oxygen Delivery Method Room Air Oxygen Flow Rate 0 Narrative Exam Narrative: GENERAL: Comfortable, alert. Appears stated age. Answers questions promptly and appropriately. Vital signs noted. HENT: Normocephalic, atraumatic. Hearing intact. Oral mucosa is pink and moist. EYES: Conjunctiva pink, sclera white, no periorbital swelling. CARDIOVASCULAR: Regular rate. No pedal edema. RESPIRATORY: Non tachypneic, breathing comfortably on room air. GASTROINTESTINAL: Abdomen soft, nontender, nondistended. No LLQ tenderness on deep palpation. GENITALURINARY: No flank tenderness. MUSCULOSKELETAL: Equal tone and mass bilaterally. SKIN: Warm, dry, soft, appropriate color for ethnicity. No other lesions, rashes, or wounds. NEURO: Alert and Oriented X 3. No gross sensory deficits, or cognitive dysfunction. PSYCH: Appropriate affect and mood. Objective Labs Result Diagrams: 09/19/19 05:30 09/19/19 05:30 Labs: Laboratory Results - last 24 hr 09/19/19 09/19/19 05:30 05:30 WBC 11.3 H RBC 3.68 L Hgb 11.8 L Hct 34.8 L MCV 94.5 MCH 32.0 MCHC 33.9 RDW 13.7 Plt Count 268 Neut % (Auto) 64.0 Lymph % (Auto) 24.5 L [place] % (Auto) 9.1 Eos % (Auto) 0.9 L Baso % (Auto) 1.5 Neut # (Auto) 7200 H Lymph # (Auto) 2800 [place] # (Auto) 1000 H Eos # (Auto) 100 Baso # (Auto) 200 H Sodium 140 Potassium 3.3 L Chloride 105 Carbon Dioxide 28 BUN 3 L Creatinine 0.70 Estimated GFR > 60.0 BUN/Creatinine Ratio 4.3 L Glucose 141 H Calcium 8.9 Magnesium 2.1 Assessment & Plan Assessment and plan (1) History of diverticulosis: Problem details: On my review of the patient's chart I was able to find a colonoscopy report from Dr. Albarado from 2016. The summary of his report is as follows: 1. Extensive sigmoid diverticulosis and scattered through the rest of the colon. This segment does seem tighter and more fixed than the rest. Currently no changes. 2. Otherwise negative colonoscopy to cecum. 3. Followup colonoscopy in 10 years. In the meantime, as long as she has no pain I would do nothing further, but if she does we should re-CT her in anticipation of needing a sigmoid colectomy. Current visit: Yes Status: Acute (2) Leukocytosis: Problem details: up and down; left shift improving but WBC slightly up Current visit: Yes Status: Acute (3) Hypothyroid: Problem details: stable, on home med Current visit: Yes Status: Acute (4) Diverticulitis: Problem details: acute on chronic Current visit: Yes Status: Acute (5) Large bowel stricture: Problem details: Large bowel stenosis suspected; narrowed appearing sigmoid colon on CT; patient not passing normal stools; cramping pain when attempting to have a BM. Current visit: Yes Status: Acute Assessment & Plan narrative: This is a 59 yo woman with history of chronic diverticulitis. She is here for an acute flare, with minimal improvement over the past few days. Her pain is much better, and PMN's are down. However, she is not passing much stool, and has significant cramping pain when attempting to pass stool. That on top of the CT scan which looks quite narrowed and tortuous in the inflamed area of sigmoid colon, raises suspicion of a stenosis in that area. We discussed options of going ahead with barium enema vs attempting to advance her diet. At this point, we are better off to advance her diet and see how she does. Barium enema carries a bit higher risk of perforation. Plan: Advance to full liquid diet PO metamucil Time Spent With Patient Time with patient: 15-24 minutes Quality VTE Deep Vein Thrombosis/Pulmonary Embolism Present on Admission: No
[2019-09-19] MEDS: ENOXAPARIN 40 MG/0.4 ML SYRINGE SUBCUT (09:21)
[2019-09-19] MEDS: CIPROFLOXACIN 400 MG/200 ML PIGGYBACK 200 MG IV ×2 (09:22→20:40)
[2019-09-19] MEDS: PSYLLIUM HUSK 1 PACKET PO ×2 (09:22→20:40)
--- NOTE | 2019-09-19 09:33 | PC.NURSE ---
Addendum entered by Marbella Mars R.N. 09/19/19 12:37: Brief update given to Dr. Urena after Dr called in to check on pt's tolerance to full liquid diet. Pt just starting full liquid diet, enc to go slow, small bites. Denies abd pain/cramping. pt states bowels are very active. Asked if appropriate for probiotics? Dr to assess. Original Note: Day Shift- Pt A&OX4, OOB indep with steady gait, denies light-headedness or dizziness. Had small loose BM with no discomfort. Dr. Urena aware at 0910. Pt aware of diet increase to Full Liquid diet. Pt took scheduled Metamucil with juice. IVF infusing well to right FA PIV. Call light within reach.
[2019-09-19 11:44] VITALS: BP 107/67; PULSE 88; RESP 16; TEMP 37; O2SAT 97
[2019-09-19 16:28] VITALS: BP 125/76; PULSE 92; RESP 18; TEMP 37.6; O2SAT 98
[2019-09-19] MEDS: LACTOBACILLUS ACIDOPHILUS TABLET 1 EACH PO (17:02)
[2019-09-19 19:37] VITALS: BP 124/75; PULSE 86; RESP 16; TEMP 37.7; O2SAT 98
--- NOTE | 2019-09-19 22:22 | PC.NURSE ---
PM shift student note: Patient has no c/o pain or discomfort, tolerating full liquid diet well. Scant bowel movements this shift, alternating pebble like to loose. IV in right forearm infiltrated at 2100, replaced in left forearm. Fine crackles auscultated at beginning of shift. Deep breathing and ambulation encouraged, lung sounds clear at 1800.
[2019-09-20] VITALS: BP 114/69; PULSE 80; RESP 16; TEMP 37.2; O2SAT 98
[2019-09-20] MEDS: metroNIDAZOLE 500 MG/100 ML PIGGYBACK 100 MG IV ×3 (00:48→11:38)
[2019-09-20 05:49] LABS: Add Manual Diff / Slide Review NO; Basophils Absolute Auto 100 /uL (0-100); Basophils Percent Auto 1.2 % (0-2); Eosinophils Absolute Auto 200 /uL (0-450); Eosinophils Percent Auto 1.6 % (2-4); Hematocrit 35.4 % (36-46); Hemoglobin 12.2 g/dL (12.0-16.0); Lymphocytes Absolute Auto 2700 /uL (1100-4500); Lymphocytes Percent Auto 28.1 % (25-40); Mean Corpuscular HGB Conc 34.4 % (30-36); Mean Corpuscular Hemoglobin 32.5 PG (26-34); Mean Corpuscular Volume 94.4 fL (80-100); Monocytes Absolute Auto 1000 /uL (0-900); Neutrophils Absolute Auto 5500 /uL (1500-7000); Neutrophils Percent Auto 58.1 % (50-75); Platelet Count 320 X10^3/uL (150-400); Red Blood Cell Count 3.75 X10^6/uL (4.0-5.2); Red Cell Distribution Width 13.5 % (11.6-14.8); White Blood Cell Count 9.5 X10^3/uL (4.5-11.0)
[2019-09-20 05:56] LABS: BUN Creatinine Ratio 3.8 (6-22); Blood Urea Nitrogen 3 mg/dL (7-17); Calcium 9.2 mg/dL (8.4-10.2); Carbon Dioxide 28 mmol/L (22-32); Chloride 106 mmol/L (98-107); Estimated Glomerular Filt Rate > 60.0 mL/min (>60); Glucose 121 mg/dL (70-100); HEMOLYSIS < 15 (0-50); Magnesium 2.1 mg/dL (1.6-2.3); Potassium 3.6 mmol/L (3.4-5.1); Sodium 141 mmol/L (137-145)
[2019-09-20 06:00] VITALS: BP 115/74; PULSE 91; RESP 16; TEMP 37; O2SAT 97
[2019-09-20] MEDS: LEVOTHYROXINE 50 MCG TABLET PO (06:08)
[2019-09-20 07:35] VITALS: BP 112/67; PULSE 78; RESP 16; TEMP 37.2; O2SAT 96
[2019-09-20] MEDS: ENOXAPARIN 40 MG/0.4 ML SYRINGE SUBCUT (07:52)
[2019-09-20] MEDS: PSYLLIUM HUSK 1 PACKET PO (07:52)
[2019-09-20] MEDS: CIPROFLOXACIN 400 MG/200 ML PIGGYBACK 200 MG IV (07:52)
[2019-09-20] MEDS: LACTOBACILLUS ACIDOPHILUS TABLET 1 EACH PO (07:52)
--- NOTE | 2019-09-20 11:36 | PM.DS.1 ---
History of Present Illness History of Present Illness Date Patient Seen: 09/20/19 Time Patient Seen: 11:36 Chief complaint: abdominal pain, no real bowel movement x 1 wk Narrative: Patient is a woman admitted with left it lower abdominal pain Discharge Providers Provider Date of admission: 09/16/19 06:56 Discharge Date: 09/20/19 Primary care physician: Caden Rivero MD Consults: 09/16/19 08:54 Consult to Discharge Planning Routine Comment: Discharge provider: Esteban Rees MD Summary Hospital Course Discharge Diagnosis: 1. Sigmoid diverticulitis acute and chronic with perforation and abscess 2 . Acute Bowel obstruction secondary to sigmoid diverticulitis resolved at discharge 3. Hypothyroidism chronic treated with medication 4. Anemia mild chronic. Initial hematocrit 30 at discharge 35.4 without intervention. Lower number probably represents effective severe illness and fluid retention which was resolved during her hospitalization. Hospital Course: Patient was admitted and p.o. intake limited initially. She was treated with broad-spectrum antibiotics. Because she is allergic to penicillin she was treated with IV Cipro and IV metronidazole. Her pain subsided daily. She began having return of bowel function. Her diet was advanced to a full liquid diet. Her white blood cell count was elevated but gradually came down to normal with a normal differential. Her neutral CT showed a phlegmon but repeat CT showed the presence of an abscess. It is small and not amenable to CT-directed drainage. Therefore she will be given broad-spectrum antibiotics for prolonged period. Status at Discharge Cognitive/behavioral status at discharge: oriented Functional status at discharge: independent ambulation Overall status at discharge: patient is back to baseline Time Spent with Patient Time spent: Less than 30 minutes Exam Vital Signs (past 8 hours): - 09/20/19 06:00 09/20/19 07:35 Temperature 98.6 F 98.9 F Pulse Rate 91 H 78 Respiratory Rate 16 16 Blood Pressure 115/74 112/67 Pulse Oximetry 97 96 Oxygen Delivery Method Room Air Oxygen Flow Rate 0 Narrative Exam Narrative: Cooperative pleasant woman in no apparent distress. Her lungs are clear to auscultation. Heart regular rate and rhythm without murmur gallop. Abdomen is scaphoid soft nontender without mass. No guarding. Objective Labs Result Diagrams: 09/20/19 05:15 09/20/19 05:15 Labs: Laboratory Results - last 24 hr 09/20/19 09/20/19 05:15 05:15 WBC 9.5 RBC 3.75 L Hgb 12.2 Hct 35.4 L MCV 94.4 MCH 32.5 MCHC 34.4 RDW 13.5 Plt Count 320 Neut % (Auto) 58.1 Lymph % (Auto) 28.1 [place] % (Auto) 11.0 Eos % (Auto) 1.6 L Baso % (Auto) 1.2 Neut # (Auto) 5500 Lymph # (Auto) 2700 [place] # (Auto) 1000 H Eos # (Auto) 200 Baso # (Auto) 100 Sodium 141 Potassium 3.6 Chloride 106 Carbon Dioxide 28 BUN 3 L Creatinine 0.80 Estimated GFR > 60.0 BUN/Creatinine Ratio 3.8 L Glucose 121 H Calcium 9.2 Magnesium 2.1 Discharge Plan Discharge Plan Patient Disposition: Home Discharge orders & Medications Prescriptions: New metronidazole [Flagyl] 500 mg tablet 500 mg PO TID Qty: 30 RF: 0 ciprofloxacin HCl 500 mg tablet 500 mg PO Q12H Qty: 20 RF: 0 Continued ASCORBIC ACID (VITAMIN C) 500 mg PO DAILY Qty: 0 RF: 0 CA PANTOTHENATE/FOLIC ACID/VIT (MULTIVITAMIN) 1 tab PO QDAY Qty: 0 RF: 0 VITAMIN D (Vitamin D3) 1,000 unit PO QDAY Qty: 0 RF: 0 CALCIUM ACETATE 667 mg PO DAILY Qty: 0 RF: 0 Fish Oil (Fish Oil 500 MG Softgel) 500 mg PO DAILY Qty: 0 RF: 0 Flaxseed Oil (#LINSEED OIL 1 ML) 1 ml NA DAILY Qty: 0 RF: 0 levothyroxine 75 mcg tablet 75 mcg PO DAILY RF: 0 Align 4 mg Capsule 4 mg PO DAILY RF: 0 Follow up/Referrals: Caden Rivero MD [Primary Care Provider] - Prudence Urena MD [Physician] - 09/28/19 1:30 am (If you need to reach a doctor after hours please call our office and listen to the entire message. At the end you will be connected with the page buhr mill operator who will page the doctor on-call) Diet/Activity/Treatments Diet: Full Liquid Diet comment: Soft foods okay. Protein shakes okay.[place] for Thanksgiving okay.No veges Activity: As tolerated Skin/Wound/Dressing Care Report to your healthcare provider any signs of infection, such as:: chills, fever, night sweats and increased pain Visit Report/Discharge Packet Instructions: Diverticulitis, DI for Diverticulitis Visit Report Forms: Patient Portal/API, Stroke Signs & Symptoms Discharge Data Primary Care Provider: Caden Rivero VTE Deep Vein Thrombosis/Pulmonary Embolism Present on Admission: No
--- NOTE | 2019-09-20 14:48 | PC.NURSE ---
Discharge pt denies pain. Had several small BM, no pain. Look fluffy like full liquid diet stools. pt took all belongings with her. PIV removed prior to d/c. D/c instructions provided to pt. Aware of f/u with . left in w/c with RN escort to car with .
== END 2019-09-20 14:20 | disposition home or self-care (01) | DRG 392 ==
LOC: ED 06:30 → AC 06:57
PROVIDERS: Admitting Provider Surgery; Emergency Provider Emergency Medicine; PCP Family Medicine; Visit Provider Surgery
DX: K57.20 Diverticulitis of large intestine with perforation and abscess without bleeding (principal); K56.609 Unspecified intestinal obstruction, unspecified as to partial versus complete obstruction; E03.9 Hypothyroidism, unspecified
CPT/HCPCS: 36415; 74177; 80048; 80053; 83690; 83735; 85025; 96361; 96365; 96367; 99222; 99232; 99238; 99283; 99284; J0744; J1650; J7121; Q9967

== ENCOUNTER → 2019-10-05 14:12 | Outpatient (CLI) | payer OTHER, SELFPAY ==
[2019-09-16 12:34] VITALS: BMI 26.5
--- NOTE | 2019-10-05 | DI.US.S_ITS ---
LIMITED ULTRASOUND OF LEFT BREAST: 10/05/2019 CLINICAL: Patient returns today to evaluate a density in the left breast. Comparison is made to exams dated: 10/05/2019 mammogram, 09/06/2019 mammogram, 05/26/2018 mammogram, 04/20/2017 mammogram, 01/24/2016 mammogram, and 11/20/2014 mammogram - [facility]. Color flow and real-time ultrasound of the left breast 12 o'clock, and retroareolar regions were performed. Dent scale images of the real-time examination were reviewed. There is a 0.7 cm round cyst in the left breast at 12 o'clock in the retroareolar region. This round cyst displays an echogenic boundary and posterior acoustic shadowing. This correlates with mammography findings and has been stable for multiple years. Color flow imaging demonstrates that there is no vascularity present. There is also a 0.4 cm x 0.3 cm x 0.6 cm oval cyst in the left breast immediately adjacent to the aforementioned cyst at 12 o'clock in the retroareolar region. This correlates with mammography findings. Color flow imaging demonstrates that there is no vascularity present. There is no finding to correspond to the no longer seen screening abnormality in the left breast. IMPRESSION: PROBABLY BENIGN NO sonographic finding to correspond to the resolved mammographic left breast finding. The round cyst in the left breast at 12 o'clock in the retroareolar region is likely an oil cyst and is benign. The 0.6 cm oval cyst in the left breast at 12 o'clock in the retroareolar region is consistent with complicated cysts and is probably benign. A follow-up mammogram and an ultrasound in 6 months is recommended to demonstrate stability of the area seen on screening, and the complicated cyst adjacent to the benign round cyst. Findings and recommendations were conveyed to the patient at time of exam. This exam was interpreted at Station ID: [id number]. Electronically Signed By: Deanne rodriges/:10/05/2019 16:14:12 letter sent: Followup Recommended Ultrasound BI-RADS: 3 Probably benign
--- NOTE | 2019-10-05 | DI.MG.S_ITS ---
UNILATERAL LEFT DIGITAL DIAGNOSTIC MAMMOGRAM 3D/2D WITH ADDITIONAL VIEWS: 10/05/2019 Comparison is made to exams dated: 09/06/2019 mammogram, 05/26/2018 mammogram, and 04/20/2017 mammogram - [facility]. There are scattered fibroglandular elements in left breast. The oval focal asymmetry in the left breast central to the nipple anterior depth has decreased in size and become less prominent. It is not reproduced in additional views. There is a questionable structure measuring 7 mm maximally There also is a stable benign oval equal density mass in the left breast at 12 o'clock anterior depth. This is stable compared to the prior exam. No other significant masses or calcifications are seen in the breast. IMPRESSION: INCOMPLETE: NEEDS ADDITIONAL IMAGING EVALUATION The 0.7 cm asymmetry in the left breast has decreased but remains indeterminate. An ultrasound is recommended. This was performed immediately following this exam. This exam was interpreted at Station ID: [id number]. NOTE: For mammograms, a report in lay terms will be sent to the patient. Approximately 15% of breast malignancies will not be visualized mammographically. In the management of a palpable breast mass, a negative mammogram must not discourage biopsy of a clinically suspicious lesion. Electronically Signed By: Deanne rodriges/:10/05/2019 16:05:01 ACR BI-RADS Category 0: Incomplete [id number]
== END ==
PROVIDERS: PCP Family Medicine; Visit Provider Family Medicine
DX: R92.8 Other abnormal and inconclusive findings on diagnostic imaging of breast (principal); N60.02 Solitary cyst of left breast
CPT/HCPCS: 76642; 77065; G0279

== ENCOUNTER 2019-11-01 06:45 | Inpatient (IN) | payer OTHER, SELFPAY ==
[2019-09-16 12:34] VITALS: BMI 26.5
[2019-11-01] VITALS (13 sets, daily range): BP systolic 94–125; BP diastolic 59–77; PULSE 71–106; RESP 10–18; TEMP 36.2–37.1; O2SAT 88–99; BMI 23.9
--- NOTE | 2019-11-01 | PATH_ITS ---
[facility] Accession Number: [id number] . 01 Material submitted: . colon - SIGMOID COLON . 02 Diagnosis: Sigmoid Colon, Segmental Resections: 1. Diverticulosis. 2. Extensive submucosal chronic inflammation including hemosiderin and foreign body giant cells containing refractile and nonrefractile foreign material, suggestive of prior ruptured diverticulitis. 3. Endometriosis focally present. 4. Negative for dysplasia and malignancy. 5. Please see comment. MRV 11/06/2019 1511 Local . 02 Comment: There is extensive chronic inflammation in the pericolorectal adipose tissue including areas of foreign body giant cell reaction, lymphocytes and macrophages, and occasional giant cells containing refractile and nonrefractile foreign material. These findings are suggestive of prior diverticulitis and/or rupture. In one of ten solar sales representative sections, there are a few rare epithelial glands at the serosal edge associated with CD10 positive stromal cells consistent with endometriosis. There is no evidence of dysplasia or malignancy. . As part of routine production quality manager, Dr. Flores also reviewed this case and agrees with the diagnosis of endometriosis. . 02 Electronically signed: . Polly Bush MD, Pathologist NPI- [id number] . 01 Gross description: . Received in formalin, labeled sigmoid colon, are two unoriented segments of colon. Segment #1 (length-14.2 cm, resection margin #1 diameter- 2.5 cm, resection margin #2 diameter- 3.5 cm) with attached adipose tissue (up to 3.8 cm in depth). The segment is received opened with the resection margin stapled. The mucosa is meyer with compact distorted folds containing diffuse diverticula. The resection margins are inked blue. Section code: (A1) resection margin #1, longitudinal solar sales representative; (A2) resection margin #2, solar sales representative serial section; (A3-A6) solar sales representative serial section. . Segment #2 (length-2.0 cm, diameter-2.6 cm) with attached adipose tissue (up to 2.5 cm in depth) is received with stapled resection margins. The mucosa is meyer with normal folds. No nodules, masses or lesions are identified. The resection margins are inked blue. Section code: (A7, A8) longitudinally solar sales representative with both resection margins; (A9, A10) solar sales representative serial sections. ([id number]) /JAIRON 11/02/2019 1640 Local . 02 Microscopic: . An immunohistochemical stain was performed to characterize cells of interest in block A1. The control stain showed appropriate reactivity. . RESULTS: CD10: Positive in the cells of interest around glands in serosa. . * This test was developed and its performance characteristics determined by [employer]. It has not been cleared or approved by the U.S. Food and Drug Administration. The FDA has determined that such clearance or approval is not necessary. This test is used for clinical purposes. It should not be regarded as investigational or for research. . 02 Pathologist provided ICD-10: K57.90, N80.9 . 02 CPT . 323338 Performed at: 01 [facility] [address] [facility], [place], [place] [id number] MD Neal Hogue MD Phone: [phone] Performed at: [facility] [address] [place], [place] [id number] MD Polly Bush MD Phone: [phone]
--- NOTE | 2019-11-01 07:39 | SUR.PREOP ---
0735 - CBC and CMP drawn per order and sent to lab
[2019-11-01] MEDS: SODIUM CHLORIDE 0.9% 1,000 ML 84 ML IV (07:47)
--- NOTE | 2019-11-01 07:50 | PM.PREOP ---
Pre-operative Note Interval Note History & Physical reviewed/Exam performed by Physician: Yes Changes to H&P: No
[2019-11-01 07:54] LABS: Basophils Absolute Auto 100 /uL (0-100); Basophils Percent Auto 1.1 % (0-2); Eosinophils Absolute Auto 100 /uL (0-450); Eosinophils Percent Auto 1.4 % (2-4); Hematocrit 37.6 % (36-46); Hemoglobin 13.1 g/dL (12.0-16.0); Lymphocytes Absolute Auto 3300 /uL (1100-4500); Lymphocytes Percent Auto 42.1 % (25-40); Mean Corpuscular HGB Conc 34.8 % (30-36); Mean Corpuscular Hemoglobin 31.9 PG (26-34); Mean Corpuscular Volume 91.6 fL (80-100); Monocytes Absolute Auto 700 /uL (0-900); Monocytes Percent Auto 8.4 % (3-14); Neutrophils Absolute Auto 3700 /uL (1500-7000); Red Blood Cell Count 4.11 X10^6/uL (4.0-5.2); Red Cell Distribution Width 13.9 % (11.6-14.8); White Blood Cell Count 7.9 X10^3/uL (4.5-11.0)
[2019-11-01 07:56] LABS: Add Manual Diff / Slide Review SLIDE REVIEW; Alanine Aminotransferase 57 IU/L (<35); Albumin 4.2 g/dL (3.5-5.0); Albumin Globulin Ratio 1.4 (1.0-2.8); Alkaline Phosphatase 44 U/L (38-126); Aspartate Aminotransferase 59 IU/L (14-36); Bilirubin Total 0.6 mg/dL (0.2-1.3); Blood Urea Nitrogen 10 mg/dL (7-17); Calcium 9.2 mg/dL (8.4-10.2); Carbon Dioxide 20 mmol/L (22-32); Chloride 107 mmol/L (98-107); Estimated Glomerular Filt Rate > 60.0 mL/min (>60); Globulin 3.1 g/dL (1.7-4.1); Glucose 112 mg/dL (70-100); HEMOLYSIS 33 (0-50); Potassium 3.5 mmol/L (3.4-5.1); Sodium 137 mmol/L (137-145); Total Protein 7.3 g/dL (6.3-8.2)
[2019-11-01] MEDS: APREPITANT 40 MG CAPSULE PO (07:57)
--- NOTE | 2019-11-01 08:05 | PM.PREOP ---
Pre-operative Note Interval Note History & Physical reviewed/Exam performed by Physician: Yes Changes to H&P: No H&P completed within 30 days and has changed as indicated here:: No changes
[2019-11-01] MEDS: metroNIDAZOLE 500 MG/100 ML PIGGYBACK 100 MG IV ×3 (08:25→22:35)
[2019-11-01 08:44] LABS: RBC Morphology Normal Morphology
[2019-11-01] MEDS: CIPROFLOXACIN 400 MG/200 ML PIGGYBACK 200 MG IV ×2 (08:50→20:38)
--- NOTE | 2019-11-01 08:50 | P.OP_ITS ---
Operative Date/Time/Diagnoses Date of procedure: 11/01/19 Time of procedure: 08:50 Pre-op diagnosis: complicated diverticulitis Post-op diagnosis: same Procedure & Clinicians Procedure: Cystoscopy and insertion bilateral ureteral localizing stents Same procedure as scheduled: Yes Surgeon: Jose Vale Click Yes if Unassisted: Yes Anesthesia Type: General Operative Notes Findings: Normal bladder urothelium. Ureteral orifices in normal position bilaterally appearance of mass effect and effacement of post anterior wall and trigone on the left. Closure Type: not applicable (None) Applied: other (Bilateral 4 Panamanian whistle-tip catheters) Estimated Blood Loss (mL): 0 Blood products transfused: none (Not applicable) Procedure in detail: The patient was positioned in semi-lithotomy and the lower abdomen genitalia and groin were prepped and draped in sterile fashion. The 25 [place]ian panendoscope was passed into the lower urinary tract with the findings as described above. Using a double access bridge a red labeled whistle-tip ureteral catheter was advanced into the right orifice and advanced proximally and a blue labeled whistle-tip ureteral catheter was then advanced into the left ureteral orifice and advanced proximally. The cystoscope was then backloaded off the ureteral catheters. A 16 Panamanian Goldman catheter was then inserted in the bladder and the balloon filled to 10 cc. The distal ends of both of the color labeled whistle-tip ureteral catheters were then brought through the female flange of the Goldman catheter to within the lumen creating an internal closed drainage system. The ureteral catheters were then secured to the Goldman catheter using small op site dressings the Goldman catheter was then placed to gravity drainage the patient was then repositioned and prepped in preparation for the planned operative procedure by Dr. Libia quesada the details of which can be found in her operative report. Complications: none Post-operative Plan for aftercare: Per Dr. Urena
--- NOTE | 2019-11-01 09:28 | SUR.OPER ---
Lithotomy on padded OR bed. [place] Pad Positioner under torso. Head on pillow, arms padded and tucked at sides. Legs secured in padded yellow fins stirrups.
[2019-11-01] MEDS: BUPIVACAINE 0.25% W/ EPI (PF) 10 ML VIAL 20 ML INJ (09:36)
--- NOTE | 2019-11-01 09:40 | SUR.OPER ---
Late into the OR, Dr. Vale new to the facility, needed some training in order to do interval note in the electronic medical record
[2019-11-01] MEDS: LACTATED RINGERS 1,000 ML 42 ML IV ×3 (10:17→15:44)
--- NOTE | 2019-11-01 12:20 | SUR.OPER ---
Ligasure unit used for cautery; monopolar setting Cut 30, Coag 30, Ligasure universal setting.
[2019-11-01] MEDS: BUPIVACAINE LIPOSOME 266 MG/20 ML VIAL INJ (14:55)
--- NOTE | 2019-11-01 15:34 | DIET.PN ---
Dietary Progress Note Pt seen by RDs prior to surgery, will start Ensure Surgery once cleared for full liquid diet.
--- NOTE | 2019-11-01 16:14 | P.OP_ITS ---
Operative Date/Time/Diagnoses Date of procedure: 11/01/19 Time of procedure: 16:14 Pre-op diagnosis: chronic sigmoid diverticulitis with phlegmon Post-op diagnosis: same Procedure & Clinicians Procedure: 1) Laparoscopic mobilization of splenic flexure of colon 2) Hand assisted sigmoid colectomy with stapled anastomosis 3) Diverting loop ileostomy 4) flexible sigmoidoscopy 5) rigid sigmoidoscopy 6) Lysis of adhesions Same procedure as scheduled: Yes Indications: Chronic sigmoid diverticulitis with colonic stenosis Surgeon: Prudence Urena Marine Insulator: Esteban Rees Anesthesia Type: General and Local (60mL 0.25% marcaine with epinepherine, 20mL Exparel given at incision sites) Operative Notes Findings: Hard and thickened sigmoid colon and proximal rectum, densely adherent to pelvic side wall and pelvic phlegmon Specimen(s): other Prosthetic devices, grafts, tissues, transplants, or devices: Sigmoid colon Estimated Blood Loss (mL): 450 Procedure in detail: The patient was brought into the operating room and placed supine on the OR table. Sequential compression devices were placed on both legs and turned on. Appropriate perioperative antibiotics were given prior to the start of surgery. General anesthesia was induced the patient was intubated. Dr. Quintanilla came in to place ureteral stents. Please see his dictation for that portion of the procedure. Once the ureteral stents were placed the patient was positioned in low lithotomy, modified Brian Encarnacion position. The abdomen and perineum were prepped and draped in sterile fashion. Surgical time-out was conducted. Local anesthetic was injected under the skin just superior to the umbilicus and a 5 mm vertical incision was made at this site. The umbilical stalk was grasped with a Ginna and elevated. A Veress needle was passed through the fascia into proper position. The position was tested with a saline drop test which was appropriate for intra-abdominal Veress needle placement. The abdomen was then insufflated in the usual fashion. Once insufflated to 15 mm Hg the Veress needle was removed and a 5 mm optical trocar was placed under direct vision using a 5 mm 30 degree scope. Once the camera was inside the abdomen I took a look around. There was no injury from port placement. Two additional ports were placed in a similar fashion in the right mid abdomen, and left mid abdomen. Dense adhesions were seen in the left upper quadrant and right upper quadrant as well as in the left pelvic gutter. We began taking down the left upper quadrant adhesions, using [place] Ligasure. Once the adhesions were down, were able to see that the patient had quite a high splenic flexure. Dissection was undertaken to mobilize the splenic flexure in order to have adequate length for sigmoid anastomosis. After about 25 minutes of dissection we had adequate length on the colon to anticipate an appropriate anastomosis in the pelvis. Attention was then turned to the pelvis and the patient was placed in steep Trendelenburg position with the right side down. We began mobilizing the sigmoid colon. Just past the pelvic brim the sigmoid colon was densely adherent to the pelvic sidewall and the pelvic reflection. There was a hard phlegmon in that area, and it was very vascular. Dissection was tedious and meticulous due to dense adhesions which were very vascular. Dissection of the sigmoid and hemostasis took over an hour. Continual careful dissection was required and bipolar cautery was used to maintain hemostasis. The sigmoid was very hard and thickened and it was very difficult to differentiate bowel from phlegmon from other structures in the area. At this point the decision was made to put in a hand port. Local anesthetic was injected the site of the patient's Pfannenstiel incisional scar in the skin. Transverse incision was made 2 fingerbreadths superior to the pubic bone, and the site of the patient's prior Pfannenstiel incision. Dissection was carried down to the fascia, and the fascia was opened vertically for about 10 cm in order to place a hand port. A GelPort hand port was placed. I then used my right hand to assist with dissection and to palpate the ureteral stents and avoid injury to the ureters. The stents were easily palpated and were outside of the dissection area during the entire procedure. Careful dissection was continued circumferentially around the involved sigmoid colon, with ongoing work to achieve and maintain hemostasis. Once the sigmoid colon was dissected out circumferentially, additional 12 mm port was placed in the right lower quadrant, and an Endo-FRAN blue load stapler was brought into field. Using the Endo-FRAN stapler we transected the rectosigmoid junction below the hard phlegmonous mass. Two 45 mm loads were used to transect the sigmoid at this site and oriented it. The specimen then b rought up through the Pfannenstiel wound, using the GelPort as a wound protector. An appropriate location was identified where the bowel was well perfused and there were no diverticula, and it was above the thickened portion of sigmoid. The colon was cleared of fat at this location and it was transected with 2 45 mm blue loads of the Endo-FRAN stapler. The specimen was passed off the table, and the anvil was placed by removing the staple line and creating a pursestring suture using [address] Rees then went to the lower position and placed a transanal circular stapler through the rectum and brought up to the staple line. It would not come all the way to the staple line, likely due to a valve in the rectum. I then used a blue load contour stapler through the open wound protector to transect the proximal rectum. We then had a good location for bring up the rectal stapler, and the spike was passed through anterior to the staple line of the rectum, and it was engaged with the anvil the stapler was then screwed down and engaged in the usual fashion, and everything appeared normal. Then when the stapler was released and retracted from the rectum a tear occurred in the proximal side of the anastomosis, which appeared to be caused by stapler malfunction. The anastomosis was checked circumferentially and the only abnormality was in the anterior wall of the proximal end of the anastomosis. This area had been thoroughly inspected and was healthy appearing and well perfused prior to anastomosis. The tear was closed in 2 layers using 3 0 PDS in a running fashion, and interrupted 3 0 silks in an interrupted Lemberted fashion. We then did a flexible sigmoidoscopy to evaluate the lumen and to check for a leak. The lumen was nicely patent, and there was no leaking of air through the bowel wall, when a saline leak test was performed. Due to the dense phelgmon, significant chronic inflammation, and necessity of repairing of the anastomosis, the decision was made to do a diverting ileostomy. At this point local anesthetic was injected into each of the port sites and into the fascial incision using 0.25% Marcaine with epi and 20 mL of Exparel. The 12 mm port site was closed with 0 Vicryl in the fascia. The distal ileum was then brought up to the abdominal wall and an appropriate position on the right lower abdomen, and an ostomy incision was performed at that site. Circular incision in the skin was then carried down to the fascia, and the fascia was opened in a cruciate fashion in the anterior fascia, and the muscle was split deep to that, and then the peritoneum was opened with cautery. I was able to fit 2 fingers in the opening, and I brought up the loop of ileum through that site. An ostomy bar was made using a red rubber catheter. I then placed a 19 round Toby drain in the left lower quadrant with the drain down in the pelvis. This was sutured in place with a 2 0 nylon suture. The fascia was then closed at the Pfannenstiel site with running 0 Prolene, and the skin was closed with skin diomedes. Each port site was then closed with 4 0 Monocryl, and Steri- Strips. Each of the wounds was dressed with a sterile dressing. The ileostomy was then brooked in the usual fashion, and an ostomy appliance was placed. The specimen was opened on the back table and was found to be thickened stenotic colon consistent with chronic diverticulitis, and no gross evidence of malignancy was seen. The ureteral stents were then removed, and the Goldman was left in place. Needle sponge and instrument counts were correct x2 at the end of the procedure. The patient tolerated the procedure well. Patient was awakened from anesthesia and extubated. She was transferred to the postanesthesia care unit in stable condition. Complications: none Post-operative Condition: stable Disposition: PACU
--- NOTE | 2019-11-01 16:17 | SUR.PHASEI ---
Labs being drawn per orders.
[2019-11-01 16:54] LABS: Eosinophils Absolute Auto 0 /uL (0-450); Eosinophils Percent Auto 0.1 % (2-4); Red Blood Cell Count 4.04 X10^6/uL (4.0-5.2); White Blood Cell Count 18.4 X10^3/uL (4.5-11.0)
[2019-11-01 16:59] LABS: Magnesium 1.8 mg/dL (1.6-2.3)
[2019-11-01 17:00] LABS: BUN Creatinine Ratio 16.7 (6-22); Blood Urea Nitrogen 10 mg/dL (7-17); Calcium 8.7 mg/dL (8.4-10.2); Carbon Dioxide 21 mmol/L (22-32); Chloride 107 mmol/L (98-107); Estimated Glomerular Filt Rate > 60.0 mL/min (>60); Glucose 186 mg/dL (70-100); HEMOLYSIS < 15 (0-50); Potassium 3.5 mmol/L (3.4-5.1); Sodium 137 mmol/L (137-145)
[2019-11-01 17:04] LABS: Add Manual Diff / Slide Review NO; Basophils Absolute Auto 0 /uL (0-100); Basophils Percent Auto 0.2 % (0-2); Hematocrit 38.1 % (36-46); Hemoglobin 12.8 g/dL (12.0-16.0); Lymphocytes Absolute Auto 1000 /uL (1100-4500); Lymphocytes Percent Auto 5.5 % (25-40); Mean Corpuscular HGB Conc 33.5 % (30-36); Mean Corpuscular Hemoglobin 31.6 PG (26-34); Mean Corpuscular Volume 94.4 fL (80-100); Monocytes Absolute Auto 1200 /uL (0-900); Monocytes Percent Auto 6.7 % (3-14); Neutrophils Absolute Auto 16100 /uL (1500-7000); Neutrophils Percent Auto 87.5 % (50-75); Platelet Count 184 X10^3/uL (150-400); Red Cell Distribution Width 13.8 % (11.6-14.8)
[2019-11-01] MEDS: MAGNESIUM SULFATE 2 GM/50 ML PIGGYBACK IV (17:45)
[2019-11-01] MEDS: SODIUM CHLORIDE 0.9% 1,000 ML 75 ML IV (17:47)
[2019-11-01] MEDS: ACETAMINOPHEN 325 MG TABLET 650 MG PO (18:38)
[2019-11-01] MEDS: OXYCODONE IR 5 MG TABLET PO (20:37)
[2019-11-01] MEDS: GABAPENTIN 300 MG CAPSULE PO (20:39)
[2019-11-01] MEDS: INSULIN ASPART 100 UNIT/ML INSULN PEN SUBCUT (20:43)
[2019-11-02] MEDS: ACETAMINOPHEN 325 MG TABLET 650 MG PO ×5 (00:01→23:50)
[2019-11-02] MEDS: OXYCODONE IR 5 MG TABLET PO ×4 (04:20→15:50)
[2019-11-02 04:39] VITALS: BP 97/63; PULSE 88; RESP 18; TEMP 37; O2SAT 98
[2019-11-02 05:49] LABS: Hematocrit 32.6 % (36-46); Hemoglobin 11.1 g/dL (12.0-16.0); Mean Corpuscular HGB Conc 34.1 % (30-36); Mean Corpuscular Hemoglobin 31.9 PG (26-34); Mean Corpuscular Volume 93.5 fL (80-100); Platelet Count 164 X10^3/uL (150-400); Red Blood Cell Count 3.49 X10^6/uL (4.0-5.2); Red Cell Distribution Width 13.4 % (11.6-14.8); White Blood Cell Count 19.7 X10^3/uL (4.5-11.0)
[2019-11-02 05:50] LABS: Add Manual Diff / Slide Review YES
[2019-11-02 05:56] LABS: BUN Creatinine Ratio 18.3 (6-22); Blood Urea Nitrogen 11 mg/dL (7-17); Calcium 8.8 mg/dL (8.4-10.2); Carbon Dioxide 22 mmol/L (22-32); Chloride 104 mmol/L (98-107); Estimated Glomerular Filt Rate > 60.0 mL/min (>60); Glucose 145 mg/dL (70-100); HEMOLYSIS < 15 (0-50); Magnesium 2.1 mg/dL (1.6-2.3); Sodium 134 mmol/L (137-145)
[2019-11-02] MEDS: metroNIDAZOLE 500 MG/100 ML PIGGYBACK 100 MG IV (06:34)
[2019-11-02 07:38] LABS: Neutrophils Absolute Manual 17533 /uL (3000-5900); Total Cells Counted 100
[2019-11-02 07:39] LABS: RBC Morphology Normal Morphology
[2019-11-02 08:00] VITALS: BP 104/65; PULSE 84; RESP 16; TEMP 37.3; O2SAT 98
[2019-11-02] MEDS: INSULIN ASPART 100 UNIT/ML INSULN PEN SUBCUT ×3 (08:33→17:15)
[2019-11-02] MEDS: CIPROFLOXACIN 400 MG/200 ML PIGGYBACK 200 MG IV (08:49)
[2019-11-02] MEDS: ENOXAPARIN 40 MG/0.4 ML SYRINGE SUBCUT (08:49)
[2019-11-02] MEDS: GABAPENTIN 300 MG CAPSULE PO ×2 (08:50→21:51)
[2019-11-02] MEDS: LEVOTHYROXINE 75 MCG TABLET PO (08:51)
--- NOTE | 2019-11-02 09:44 | P.PN_ITS ---
Subjective Subjective Date Patient Seen: 11/02/19 Time Patient Seen: 08:45 Interval history: No acute events overnight. The patient has been tolerating clear liquids. She had 1 episode of nausea last night, but no vomiting. She says she feels bloated. She has some pain at the drain site in the left lower quadrant, but says it is not significant. Otherwise says she feels pretty good. Exam Vital Signs (past 8 hours): - 11/02/19 04:39 11/02/19 08:00 Temperature 98.6 F 99.1 F Pulse Rate 88 84 Respiratory Rate 18 16 Blood Pressure 97/63 104/65 Pulse Oximetry 98 98 Oxygen Delivery Method Nasal Cannula Oxygen Flow Rate 2 Narrative Exam Narrative: GENERAL: Oriented, comfortable appearing HENT: Oral mucosa is pink and moist. CARDIOVASCULAR: Regular rate. No pedal edema. RESPIRATORY: Non-tachypneic, breathing comfortably on room air. GASTROINTESTINAL: Abdomen soft, mildly distended, appropriately tender to palpation for postop day 1, dressings clean dry and intact, CHAN drain bloody but thin fluid, ostomy maroon, edematous, thin dark output in the bag, with some gas SKIN: Warm, dry, soft, appropriate color for ethnicity. No other lesions, rashes, or wounds. NEURO: Alert and Oriented X 3. No gross sensory deficits, or cognitive issues. PSYCH: Appropriate affect and mood. Objective Labs Result Diagrams: 11/02/19 04:50 11/02/19 04:50 Labs: Laboratory Results - last 24 hr 11/01/19 11/01/19 11/01/19 16:25 16:25 16:35 WBC 18.4 H D RBC 4.04 Hgb 12.8 Hct 38.1 MCV 94.4 MCH 31.6 MCHC 33.5 RDW 13.8 Plt Count 184 Neut % (Auto) 87.5 H D Lymph % (Auto) 5.5 L D [place] % (Auto) 6.7 Eos % (Auto) 0.1 L Baso % (Auto) 0.2 Neut # (Auto) 37451 H Lymph # (Auto) 1000 L [place] # (Auto) 1200 H Eos # (Auto) 0 Baso # (Auto) 0 Total Counted Seg Neutrophils % Band Neutrophils % Lymphocytes % (Manual) Monocytes % (Manual) Neutrophils # (Manual) RBC Morphology Sodium 137 Potassium 3.5 Chloride 107 Carbon Dioxide 21 L BUN 10 Creatinine 0.60 Estimated GFR > 60.0 BUN/Creatinine Ratio 16.7 Glucose 186 H Calcium 8.7 Magnesium 1.8 11/02/19 11/02/19 04:50 04:50 WBC 19.7 H RBC 3.49 L Hgb 11.1 L Hct 32.6 L MCV 93.5 MCH 31.9 MCHC 34.1 RDW 13.4 Plt Count 164 Neut % (Auto) Not Reportable Lymph % (Auto) Not Reportable [place] % (Auto) Not Reportable Eos % (Auto) Not Reportable Baso % (Auto) Not Reportable Neut # (Auto) Lymph # (Auto) Not Reportable [place] # (Auto) Not Reportable Eos # (Auto) Baso # (Auto) Not Reportable Total Counted 100 Seg Neutrophils % 75.0 H Band Neutrophils % 14.0 H Lymphocytes % (Manual) 5.0 L Monocytes % (Manual) 6.0 Neutrophils # (Manual) 91076 H RBC Morphology Normal morphology Sodium 134 L Potassium 4.0 Chloride 104 Carbon Dioxide 22 BUN 11 Creatinine 0.60 Estimated GFR > 60.0 BUN/Creatinine Ratio 18.3 Glucose 145 H Calcium 8.8 Magnesium 2.1 Assessment & Plan Assessment and plan (1) Diverticulitis: Problem details: Treated, sigmoid colectomy Current visit: No Status: Acute (2) History of diverticulosis: Current visit: No Status: Acute (3) Large bowel stricture: Problem details: Treated, sigmoid colectomy Current visit: No Status: Acute (4) Hypothyroid: Problem details: stable, on home med Current visit: No Status: Acute (5) Status post partial colectomy: Problem details: Postop day 1, doing well Current visit: Yes Status: Acute (6) Ileostomy status: Problem details: New sigmoid resection anastomosis, loop ileostomy for diversion of stool proximal to the anastomosis of the colon. Consult to wound ostomy nurse and youth care worker for ostomy teaching and home care planning. Current visit: Yes Status: Acute (7) Leukocytosis: Problem details: Appropriate for postop day 1 after prolonged colorectal surgery and dissection of pelvic phlegmon Current visit: No Status: Acute Assessment & Plan narrative: This is a 59 yo woman who is POD#1 s/p lap hand assist sigmoid colectomy with diverting loop ileostomy. She had a prolonged operation due to extensive phelgmon in the pelvis, and required diverting ostomy because of the extent of pelvic inflammation, and a leaking staple line which required suture reinforcement. She has some stoma output already. Her urine has cleared up and is now yellow to slightly pink. Her CHAN drain is bloody but thin. All appropriate for POD#1. Plan: Remove rosado PO clears, advance to fulls as tolerated OOB, Ambulate TID Scheduled gabapentin and tylenol PO and IV narcotic pain med as needed Consult to ostomy nurse for teaching and after care planning Quality VTE Deep Vein Thrombosis/Pulmonary Embolism Present on Admission: No
[2019-11-02 12:00] VITALS: BP 94/66; PULSE 79; RESP 16; TEMP 36.8; O2SAT 96
[2019-11-02] MEDS: SODIUM CHLORIDE 0.9% 1,000 ML 75 ML IV (12:00)
[2019-11-02 15:47] VITALS: BP 129/62; PULSE 83; RESP 20; TEMP 36.8; O2SAT 97
[2019-11-02] MEDS: LACTOBACILLUS ACIDOPHILUS TABLET 1 EACH PO (17:15)
[2019-11-02 20:32] VITALS: BP 115/60; PULSE 78; RESP 18; TEMP 36.7; O2SAT 98
[2019-11-02] MEDS: PSYLLIUM HUSK 1 PACKET PO (21:51)
--- NOTE | 2019-11-02 22:08 | PC.NURSE ---
ostomy output 125ml emptied from ileostomy bag. output looks like soy sauce in color and consistency.
[2019-11-02 23:40] VITALS: BP 101/49; PULSE 82; RESP 18; TEMP 37.1; O2SAT 96
[2019-11-03] MEDS: OXYCODONE IR 5 MG TABLET PO ×3 (00:49→18:18)
[2019-11-03] MEDS: SODIUM CHLORIDE 0.9% 1,000 ML 75 ML IV (02:36)
[2019-11-03 03:00] VITALS: BP 109/61; PULSE 80; RESP 18; TEMP 36.8; O2SAT 96
[2019-11-03 06:00] LABS: Add Manual Diff / Slide Review NO; Basophils Absolute Auto 0 /uL (0-100); Basophils Percent Auto 0.3 % (0-2); Eosinophils Absolute Auto 0 /uL (0-450); Eosinophils Percent Auto 0.1 % (2-4); Hematocrit 27.1 % (36-46); Hemoglobin 9.2 g/dL (12.0-16.0); Lymphocytes Absolute Auto 1900 /uL (1100-4500); Lymphocytes Percent Auto 12.6 % (25-40); Mean Corpuscular HGB Conc 33.9 % (30-36); Mean Corpuscular Hemoglobin 31.7 PG (26-34); Mean Corpuscular Volume 93.6 fL (80-100); Monocytes Absolute Auto 800 /uL (0-900); Monocytes Percent Auto 5.4 % (3-14); Neutrophils Absolute Auto 12400 /uL (1500-7000); Neutrophils Percent Auto 81.6 % (50-75); Platelet Count 136 X10^3/uL (150-400); Red Cell Distribution Width 14.2 % (11.6-14.8); White Blood Cell Count 15.2 X10^3/uL (4.5-11.0)
[2019-11-03 06:10] LABS: Blood Urea Nitrogen 9 mg/dL (7-17); Calcium 8.4 mg/dL (8.4-10.2); Carbon Dioxide 25 mmol/L (22-32); Chloride 107 mmol/L (98-107); Estimated Glomerular Filt Rate > 60.0 mL/min (>60); Glucose 104 mg/dL (70-100); HEMOLYSIS < 15 (0-50); Magnesium 2.1 mg/dL (1.6-2.3); Potassium 3.7 mmol/L (3.4-5.1); Sodium 137 mmol/L (137-145)
[2019-11-03] MEDS: ACETAMINOPHEN 325 MG TABLET 650 MG PO ×3 (06:11→17:18)
[2019-11-03 07:47] VITALS: BP 109/63; PULSE 84; RESP 16; TEMP 37.1; O2SAT 98
[2019-11-03] MEDS: LEVOTHYROXINE 75 MCG TABLET PO (09:17)
[2019-11-03] MEDS: LACTOBACILLUS ACIDOPHILUS TABLET 1 EACH PO ×2 (09:17→17:20)
[2019-11-03] MEDS: POTASSIUM CHLORIDE 20 MEQ TAB 40 MEQ PO (09:17)
[2019-11-03] MEDS: PSYLLIUM HUSK 1 PACKET PO ×2 (09:18→20:55)
[2019-11-03] MEDS: GABAPENTIN 300 MG CAPSULE PO (09:18)
[2019-11-03] MEDS: ONDANSETRON 4 MG/2 ML INJ IV (09:34)
--- NOTE | 2019-11-03 11:17 | PC.NURSE ---
Ostomy Nurse Consult Note Christine awake sitting up in the chair. She ambulated with the walker to the restroom with stand by assistance from her nurse. After getting back into the bed, Dr. Urena and I removed the ostomy appliance an assessed the stoma as well as the incision site and laparospic sites. The Loop ileostomy stoma is edematous, pink and moist. The red juan carlos bridge is intact. Stoma sutures are intact. The jb-stomal skin is dry and intact without any redness. The stoma measures 1 1/4mm and the distal end may eventually have some retraction, yet at present the stoma is budded above the level of the skin approximatly 1/2 inch. There was a large amount of brown\green liquid stool. Dr. Urena did the dressing changes and I applied a 45mm Convatec Flat moldable wafer with a clear non-filtered pouch. The surgical staple from the surgical site in the pubis area are intact without redness or drainage. All the laparospic sits are dry and intact. The CHAN drain is intact. I explained the anatomy of an ileostomy to Christine and reviewed pouching systems as well as gave her the [facility] New Patient Guide. I did about 30 minutes of teaching and could see Christine was ready to stop. She said she was feeling overwhelmed and I told her I know that she is and reinforced with her that she had a major surgery and that it is alright to feel overwhelmed. She began to cry and this was good. Christine will have her and daughter come in tomorrow at 11:00 so that I can also teach them about Christine's ostomy. I am pleased that Dr. Urena also feels that Christine would greatly benefit from having home health nursing come to help with teaching how to care for her osotmy. I gave Christine my number to call me if for any reason she needs to change the time for ostomy teaching otherwise I plan to be here tomorrow at 11:00 to continue with teaching.
--- NOTE | 2019-11-03 11:48 | P.PN_ITS ---
Subjective Subjective Date Patient Seen: 11/03/19 Time Patient Seen: 11:48 Interval history: No acute events overnight. Copious ostomy output. Minimal pain. C/o some nausea with taking her medications and Metamucil back to back this morning. No vomiting. Says she slept better last night. Exam Vital Signs (past 8 hours): - 11/03/19 07:47 Temperature 98.8 F Pulse Rate 84 Respiratory Rate 16 Blood Pressure 109/63 Pulse Oximetry 98 Oxygen Delivery Method Room Air Oxygen Flow Rate 0 Narrative Exam Narrative: GENERAL: Oriented, comfortable HENT: Oral mucosa is pink and moist. EYES: Conjunctiva pink, sclera white, no periorbital swelling. CARDIOVASCULAR: Regular rate. No pedal edema. RESPIRATORY: Non-tachypneic, breathing comfortably on room air. GASTROINTESTINAL: Abdomen soft and non-distended; appropriate tenderness to palpation for postop day 2. Dressings removed, incisions are clean dry and intact. Ostomy pouch removed, ileostomy is pink, patent, and budded, with copious very thin output GENITALURINARY: No flank tenderness. MUSCULOSKELETAL: Equal tone and mass bilaterally. SKIN: Warm, dry, soft, appropriate color for ethnicity. No other lesions, rashes, or wounds. NEURO: Alert and Oriented X 3. No gross sensory deficits, or cognitive issues. PSYCH: Appropriate affect and mood. Objective Labs Result Diagrams: 11/03/19 05:20 11/03/19 05:20 Labs: Laboratory Results - last 24 hr 11/03/19 11/03/19 05:20 05:20 WBC 15.2 H RBC 2.90 L Hgb 9.2 L Hct 27.1 L MCV 93.6 MCH 31.7 MCHC 33.9 RDW 14.2 Plt Count 136 L Neut % (Auto) 81.6 H Lymph % (Auto) 12.6 L Fountain % (Auto) 5.4 Eos % (Auto) 0.1 L Baso % (Auto) 0.3 Neut # (Auto) 04413 H Lymph # (Auto) 1900 Fountain # (Auto) 800 Eos # (Auto) 0 Baso # (Auto) 0 Sodium 137 Potassium 3.7 Chloride 107 Carbon Dioxide 25 BUN 9 Creatinine 0.60 Estimated GFR > 60.0 BUN/Creatinine Ratio 15.0 Glucose 104 H Calcium 8.4 Magnesium 2.1 Assessment & Plan Assessment and plan (1) Ileostomy status: Problem details: New sigmoid resection anastomosis, loop ileostomy for diversion of stool proximal to the anastomosis of the colon. Seen by wound ostomy nurse, Astrid Vasquez, today. Will continue teaching today and tomorrow, with dispo planning for sometime in the next day or so pending ostomy supplies are set up for home, and the patient is medically stable to go home. Current visit: Yes Status: Acute (2) Status post partial colectomy: Problem details: Postop day 2, doing well Current visit: Yes Status: Acute (3) Diverticulitis: Problem details: Treated, sigmoid colectomy Current visit: No Status: Acute (4) Hypothyroid: Problem details: stable, on home med Current visit: No Status: Acute (5) Leukocytosis: Problem details: Appropriate for postop day 2 after prolonged colorectal surgery and dissection of pelvic phlegmon Current visit: No Status: Acute (6) History of diverticulosis: Current visit: No Status: Acute (7) Large bowel stricture: Problem details: Treated, sigmoid colectomy Current visit: No Status: Acute (8) Acute postoperative anemia due to expected blood loss: Problem details: Hemoglobin is 9 today. Appropriate for the surgery that she had. Vital signs are stable and patient is asymptomatic. Drain output is serosanguineous. Ostom y output is appropriate. No ongoing source of bleeding is expected. Platelets are down to 137 from the 300s. Possibly due to operative losses and physiologic clotting, less likely but possible reaction to Lovenox. Will continue to monitor drain, ostomy output, and vitals. Will stop IV fluids, hold Lovenox, encourage frequent ambulation, continue lower extremity sequential compression devices, repeat CBC tomorrow, or sooner if patient becomes symptomatic. Current visit: Yes Status: Acute Assessment & Plan narrative: This is a 59-year-old woman who is postop day 2 from laparoscopic hand assisted sigmoid colectomy and diverting ileostomy for colon stenosis/chronic diverticulitis, with prolonged dissection and need for proximal diversion due to significant phlegmon in the pelvis. She is doing very well. She is requiring fairly minimal pain medications. Her hemoglobin has drifted down, but I think it is now appropriate for what I would have expected postop given her intraop blood loss. She should start mobilizing her 3rd spaced fluids today or tomorrow and urinating more. I don't see any other source of blood loss right now looking her drain, incisions, and her ostomy. She was seen by the wound care nurse today, and it looks like things will be getting set up for her to have ostomy care at home and follow up next week with me as well as the wound care nurse, Astrid Vasquez. Plan: DC IV fluids Hold Lovenox Ambulate at least 20 minutes t.i.d. Ostomy teaching Repeat CBC tomorrow Okay to shower as long as the drain site is protected Advanced diet to regular Continue Metamucil and probiotic Add Imodium 2 mg once today Quality VTE Deep Vein Thrombosis/Pulmonary Embolism Present on Admission: No
[2019-11-03 12:00] VITALS: BP 111/67; PULSE 82; RESP 17; TEMP 37.6; O2SAT 97
[2019-11-03] MEDS: INSULIN ASPART 100 UNIT/ML INSULN PEN SUBCUT (12:39)
[2019-11-03] MEDS: LOPERAMIDE 2 MG CAPSULE PO (12:47)
--- NOTE | 2019-11-03 15:58 | CM.IDA ---
Addendum entered by Polly Gonzales, TELECOM NETWORK MANAGER 11/04/19 12:17: Reviewed DCP w/pt,spouse, pt's dtr, Dr Urena and Astrid Vasquez this morning, pt will not be going home today but it is likely she can go home Wednesday; all agree RN would be helpful, especially to assist in pt's transition back home. Pt requests this TELECOM NETWORK MANAGER place call to different agencies to inquire about her Insurance auth and RN availability ? [facility] spoke w/Lee, she didn't expect an authorization until Wednesday and no RN Wednesday. Placed call to Gracie at [facility], she explained pt's [facility] Medical plan likely did not need a pre-authorization for HH and she was happy to accept the referral, Wednesday f/u would not be guaranteed but an RN could f/u Wednesday. Faxed referral as requested to include HH order and completed F2F. Updated pt, family and Astrid Vasquez and pt seemed relieved. Provided a Signature brochure. Pt explained her mom would be staying with her this week to assist, and she felt more and more confident knowing that she had Astrid Castillo, and Nursing as professional supports for transitioning home w/new Ostomy. Pt scheduled to see Dr Montanez in the outpt setting [id number]. DC planning team will follow closely, [facility] will need update on DC date and DC Summary faxed upon DC. JW Original Note: Initial DCP Assessment Note: Pt is a 59 yo female, resident of [place]. Pt is POD#2 from laparoscopic colectomy and diverting ileostomy for colon diverticulitis. PCP: Caden Rivero Payer: Lon Attempted assessment a few times today and pt had visitors at bedside, pt requested kindly that TELECOM NETWORK MANAGER return Wednesday when spouse and dtr at bedside. Ostomy Nurse Astrid Vasquez will be visiting Wednesday morning at 1100. Spoke w/Astrid who was in the middle of changing dressings at bedside w/ Dr Urena this morning. Astrid explained pt may benefit from Home Health RN if agreeable d/t management of new Ostomy and feelings of unease w/this management. This [facility] placed call to [facility] to inquire about availability for RN in [place] if pt went home tomorrow...patient name not given. Lee at [facility] explained they would not be able to do start of care until Wednesday and they would require an auth from [facility] before start of care. This TELECOM NETWORK MANAGER will need to review need for Home Health and availability tomorrow with: pt, family, Astrid Vasquez, and Dr Urena. [facility] is not open over the w/e to request HH authorization ELLIE Nayak
[2019-11-03 16:02] VITALS: BP 106/65; PULSE 88; RESP 18; TEMP 36.8; O2SAT 97
[2019-11-03 19:08] VITALS: PULSE 100; O2SAT 94
[2019-11-03 19:48] VITALS: BP 121/70; PULSE 71; RESP 18; TEMP 36.8; O2SAT 99
[2019-11-04] MEDS: ACETAMINOPHEN 325 MG TABLET 650 MG PO ×5 (00:14→23:51)
[2019-11-04] MEDS: OXYCODONE IR 5 MG TABLET PO ×3 (00:17→16:35)
[2019-11-04 00:30] VITALS: BP 114/68; PULSE 80; RESP 16; TEMP 37.4; O2SAT 97
[2019-11-04 05:36] LABS: Add Manual Diff / Slide Review NO; Basophils Absolute Auto 100 /uL (0-100); Basophils Percent Auto 0.5 % (0-2); Eosinophils Absolute Auto 200 /uL (0-450); Eosinophils Percent Auto 1.5 % (2-4); Hematocrit 29.8 % (36-46); Hemoglobin 10.3 g/dL (12.0-16.0); Lymphocytes Absolute Auto 3000 /uL (1100-4500); Lymphocytes Percent Auto 23.3 % (25-40); Mean Corpuscular HGB Conc 34.6 % (30-36); Mean Corpuscular Volume 92.6 fL (80-100); Monocytes Absolute Auto 800 /uL (0-900); Monocytes Percent Auto 6.2 % (3-14); Neutrophils Absolute Auto 8900 /uL (1500-7000); Neutrophils Percent Auto 68.5 % (50-75); Platelet Count 203 X10^3/uL (150-400); Red Blood Cell Count 3.22 X10^6/uL (4.0-5.2); Red Cell Distribution Width 14.5 % (11.6-14.8)
[2019-11-04 05:49] LABS: BUN Creatinine Ratio 13.3 (6-22); Blood Urea Nitrogen 8 mg/dL (7-17); Calcium 8.9 mg/dL (8.4-10.2); Carbon Dioxide 29 mmol/L (22-32); Chloride 107 mmol/L (98-107); Estimated Glomerular Filt Rate > 60.0 mL/min (>60); Glucose 99 mg/dL (70-100); HEMOLYSIS < 15 (0-50); Magnesium 2.1 mg/dL (1.6-2.3); Potassium 4.1 mmol/L (3.4-5.1); Sodium 140 mmol/L (137-145)
[2019-11-04 06:22] VITALS: BP 120/72; PULSE 72; RESP 16; TEMP 36.8; O2SAT 99
[2019-11-04 07:58] VITALS: BP 100/56; PULSE 76; RESP 18; TEMP 36.8; O2SAT 98
[2019-11-04] MEDS: LEVOTHYROXINE 75 MCG TABLET PO (08:42)
[2019-11-04] MEDS: PSYLLIUM HUSK 1 PACKET PO ×2 (08:42→21:18)
[2019-11-04] MEDS: LACTOBACILLUS ACIDOPHILUS TABLET 1 EACH PO ×2 (08:42→16:36)
[2019-11-04] MEDS: LOPERAMIDE 2 MG CAPSULE PO ×3 (08:49→21:23)
--- NOTE | 2019-11-04 11:34 | PM.PN.1 ---
Subjective Subjective Date Patient Seen: 11/04/19 Time Patient Seen: 11:34 Interval history: No acute events overnight. Pain well controlled. Feeling a bit dehydrated. Exam Vital Signs (past 8 hours): - 11/04/19 06:22 11/04/19 07:58 Temperature 98.2 F 98.3 F Pulse Rate 72 76 Respiratory Rate 16 18 Blood Pressure 120/72 100/56 L Pulse Oximetry 99 98 Oxygen Delivery Method Room Air Oxygen Flow Rate 0 Narrative Exam Narrative: GENERAL: Oriented, comfortable HENT: Oral mucosa is pink and moist. EYES: Conjunctiva pink, sclera white, no periorbital swelling. CARDIOVASCULAR: Regular rate. No pedal edema. RESPIRATORY: Non-tachypneic, breathing comfortably on room air. GASTROINTESTINAL: Abdomen soft and non-distended; appropriate tenderness to palpation for postop day 3. Dressings removed, incisions are clean dry and intact. Ileostomy is pink, patent, and budded, with copious very thin output. CHAN drain serosanguinous. Removed during exam. GENITALURINARY: No flank tenderness. MUSCULOSKELETAL: Equal tone and mass bilaterally. SKIN: Warm, dry, soft, appropriate color for ethnicity. No other lesions, rashes, or wounds. NEURO: Alert and Oriented X 3. No gross sensory deficits, or cognitive issues. PSYCH: Appropriate affect and mood. Objective Labs Result Diagrams: 11/04/19 05:15 11/04/19 05:15 Labs: Laboratory Results - last 24 hr 11/04/19 11/04/19 05:15 05:15 WBC 13.0 H RBC 3.22 L Hgb 10.3 L Hct 29.8 L MCV 92.6 MCH 32.0 MCHC 34.6 RDW 14.5 Plt Count 203 Neut % (Auto) 68.5 Lymph % (Auto) 23.3 L Norman % (Auto) 6.2 Eos % (Auto) 1.5 L Baso % (Auto) 0.5 Neut # (Auto) 8900 H Lymph # (Auto) 3000 Norman # (Auto) 800 Eos # (Auto) 200 Baso # (Auto) 100 Sodium 140 Potassium 4.1 Chloride 107 Carbon Dioxide 29 BUN 8 Creatinine 0.60 Estimated GFR > 60.0 BUN/Creatinine Ratio 13.3 Glucose 99 Calcium 8.9 Magnesium 2.1 Assessment & Plan Assessment and plan (1) Status post partial colectomy: Problem details: Postop day 3, doing well over all, but ileostomy output is too high to manage as an outpatient. Current visit: Yes Status: Acute (2) Diverticulitis: Problem details: Treated, sigmoid colectomy Current visit: No Status: Acute (3) Hypothyroid: Problem details: stable, on home med Current visit: No Status: Acute (4) Leukocytosis: Problem details: Appropriate for postop day 3 after prolonged colorectal surgery and dissection of pelvic phlegmon Current visit: No Status: Acute (5) History of diverticulosis: Current visit: No Status: Acute (6) Large bowel stricture: Problem details: Treated, sigmoid colectomy Current visit: No Status: Acute (7) Ileostomy status: Problem details: New sigmoid resection anastomosis, loop ileostomy for diversion of stool proximal to the anastomosis of the colon. Seen by wound ostomy nurse, Astrid Vasquez, again today. Will continue teaching today and tomorrow, with dispo planning for sometime in the next few days pending ostomy supplies are set up for home, and the patient is medically stable to go home. At this point her ostomy output is too high. We have started immodium TID, and will titrate upward to keep ostomy output <1L/day. Current visit: Yes Status: Acute (8) Acute postoperative anemia due to expected blood loss: Problem details: Hemoglobin is now up to 10.3. Platelets are 203. Holding lovenox because of platelet drop. Continuing SCD's and ambulating as much as possible. Current visit: Yes Status: Acute Assessment & Plan narrative: This is a 59-year-old woman who is postop day 3 from laparoscopic hand assisted sigmoid colectomy and diverting ileostomy for colon stenosis/chronic diverticulitis, with prolonged dissection and need for proximal diversion due to significant phlegmon in the pelvis. She is doing very well. She is requiring fairly minimal pain medications. She was seen by the wound care nurse again today. We are working on dispo planning regarding home health supplies for ostomy care at home, but right now her output is too high to manage as an outpatient. I have increased her immodium, put her on a regular diet, and she is on BID metamucil. Right now I will have to put her back on IV fluids until her output volume comes down to <1L/day. Plan: Restart IV fluids Hold Lovenox Ambulate at least 20 minutes t.i.d. Ostomy teaching Okay to shower as long as the drain site is protected Advanced diet to regular Continue Metamucil and probiotic Increase Imodium to 2mg TID Time Spent With Patient Time with patient: 15-24 minutes Quality VTE Deep Vein Thrombosis/Pulmonary Embolism Present on Admission: No
[2019-11-04] MEDS: SODIUM CHLORIDE 0.9% 1,000 ML 84 ML IV ×2 (12:24→23:53)
--- NOTE | 2019-11-04 13:48 | PC.NURSE ---
Ostomy Nurse Consult Note Christine and daughter here to learn about ostomy care. Dr. Urena also here. Dr. Urena removed the CHAN drain and the incisional dressing in her pubis region. The incisional diomedes dry and intact. Christine will be started on IV hydration as her output from her ileostomy is too high. I reviewed ileostomy anatomy, food blockage, prevention of dehydration, food choices, applying and removing the pouching appliance. We reviewed the [employer] New Patient Guide. Her Aakash practiced on the stoma model using a two piece moldable and a one piece cut to fit. Christine was interactive with this teaching lesson. Christine feels much more confident in her ileostomy. Discharge planning will have home health come out on Wednesday. I will be seeing Christine in the clinic with Dr. Urena on Wednesday. I changed the appliace. The stoma is edematous, pink and moist. The sutures are intact as well as the stoma red juan carlos bar. The jb-stomal skin is intact. I used an alisson ring and a 45mm moldable two piece system with a transparent non-filtered pouch. I left supplies in a basin for Christine to take home for caring for her ostomy. I will follow up with Christine on November 07.
--- NOTE | 2019-11-04 13:52 | PC.NURSE ---
1330 Pt has ostomy site care & intense teaching by the ostomy nurse, Astrid. Spouse participated in teaching. Dr Urena dcd the justin drainn at 1130. Pt macy well. Pt med with oxycodone & Tylenol. Pt ostomy out put is watery, brown, no odor. 1215 Pt started on IVF. PT has been OOB to the recliner chair & has ambulated in hallway. Pt is pleasant & cooperative.
[2019-11-04 15:28] VITALS: BP 97/69; PULSE 87; RESP 18; TEMP 36.7; O2SAT 99
--- NOTE | 2019-11-04 19:07 | PC.NURSE ---
Assumed care of pt at 1500. Pt sitting up in chair during bedside hand-off. Pt reports she just had shower. Drsg lower abd c/d/i. Changed after shower by day shift RN. Band-aids to lap sites wet from shower. Changed by this RN. Ostomy with green/brown soft output. Pt participating in draining pouch. Spouse and pt reports they are a comfortable with care for ostomy at home. Ambulated in halls with spouse prior to dinner. Tolerating reg diet. Calling appropriately for needs.
[2019-11-04 19:33] VITALS: BP 109/66; PULSE 89; RESP 16; TEMP 35.8; O2SAT 100
[2019-11-04 23:00] VITALS: BP 100/57; PULSE 79; RESP 16; TEMP 36.8; O2SAT 97
[2019-11-05 04:50] VITALS: BP 112/62; PULSE 75; RESP 12; TEMP 36.8; O2SAT 98
[2019-11-05] MEDS: ACETAMINOPHEN 325 MG TABLET 650 MG PO ×2 (06:15→11:44)
--- NOTE | 2019-11-05 07:22 | P.DS_ITS ---
History of Present Illness History of Present Illness Date Patient Seen: 11/05/19 Time Patient Seen: 08:00 Chief complaint: [id number] Narrative: This is a 59 yo woman with long history of diverticulosis and diverticulitis. She had a colonoscopy 5 years ago in which sigmoid stenosis and evidence of chronic diverticulitis were seen. This past August she was admitted for several days for medical treatment of her diverticulitis. Since then she has been recovering at home, and preparing for elective colon resection. She was admitted on November 01 for laparoscopic possible open sigmoid colectomy. Discharge Providers Provider Date of admission: 11/01/19 06:45 Discharge Date: 11/05/19 Primary care physician: Caden Rivero MD Consults: 11/01/19 17:20 Consult to Discharge Planning Routine Comment: PATIENT WILL NEED OSTOMY TEACHING AND OSTOMY SUPPL 11/02/19 09:30 Consult to Ostomy Specialist Routine Comment: new diverting loop ileostomy placed on 11/01/19 Consulting Provider: 11/04/19 12:10 Consult to Home Health Routine Comment: Reason For Exam: Home Health RN- Wound Care/Ostomy Management Discharge provider: Prudence Urena MD Summary Hospital Course Discharge Diagnosis: Acute and chronic diverticulitis, sigmoid colon stenosis Hospital Course: The patient came in for surgery on November 01. During surgery she was found to have a very thick, heavily scarred, and very vascular phlegmon around her rectosigmoid junction. Dissecting this out required a prolonged operative time, and the quality of the remaining rectum required the addition of a diverting ileostomy proximal to her colorectal anastomosis. The patient recovered well from surgery, and had ileostomy output on postop day 1. She did not have any fevers, or any clinical signs of infection. Her ileostomy output was very thin, and high in volume, requiring adjustment of her diet and medication, and prolonged use of IV fluids until she was able to maintain hydration. She received ostomy teaching on postop day 3 and 4, and was discharged on postop day 4. Status at Discharge Cognitive/behavioral status at discharge: oriented Functional status at discharge: independent ambulation Overall status at discharge: patient is progressing back to baseline Time Spent with Patient Time spent: Greater than 30 minutes Exam Vital Signs (past 8 hours): - 11/05/19 04:50 Temperature 98.2 F Pulse Rate 75 Respiratory Rate 12 Blood Pressure 112/62 Pulse Oximetry 98 Oxygen Delivery Method Room Air Oxygen Flow Rate 0 Narrative Exam Narrative: GENERAL: Oriented, comfortable HENT: Oral mucosa is pink and moist. EYES: Conjunctiva pink, sclera white, no periorbital swelling. CARDIOVASCULAR: Regular rate. No pedal edema. RESPIRATORY: Non-tachypneic, breathing comfortably on room air. GASTROINTESTINAL: Abdomen soft and non-distended; appropriate tenderness to palpation for postop day 3. Dressings removed, incisions are clean dry and intact. Ileostomy is pink, patent, and budded, with copious very thin output. GENITALURINARY: No flank tenderness. MUSCULOSKELETAL: Equal tone and mass bilaterally. SKIN: Warm, dry, soft, appropriate color for ethnicity. No other lesions, rashes, or wounds. NEURO: Alert and Oriented X 3. No gross sensory deficits, or cognitive issues. PSYCH: Appropriate affect and mood. Objective Labs Result Diagrams: 11/04/19 05:15 11/04/19 05:15 Discharge Plan Discharge Plan Patient Disposition: Home Health Service Discharge comment: Drink plenty of water to keep yourself hydrated. If you feel dry mouth or notice your urine becomes darker, increase your fluid intake. Your ostomy output should remain less than 1L per day. If you notice it is thinner or more copious, or you are feeling dehydrated, you may increase the Immodium and Metamucil gradually for thicker output. To start: Immodium 2mg three times daily -- gradually increase to 4mg three times per day if needed Metamucil (or preferred fiber supplement) 2tspn in 8 oz water twice daily -- may go up to three times daily if needed Take your prescription pain medication as needed so you are able to cough, take deep breaths, sleep well, and get up to walk around. Try additionally taking Tylenol as needed for pain, as well as NSAID's such as Aleve, Advil, Ibuprofen if you are able to do so without stomach upset. Make sure to take NSAID's with food. Do not take more than the recommended dose of each. Keep active with light activity such as gentle exercise and taking walks. Avoid lifting over 10lbs, abdominal core work, or very strenuous activity. Avoid being sedentary for prolonged periods. You may shower. After showering, keep a dry dressing over your incisional wounds as needed. If you notice any redness or drainage from the wounds, call our office and speak to Dr. Urena, or the doctor transmission maintenance supervisor. If you have any other concerns about your surgery or post operative care, please call the surgeon's office number and speak to the office nurse or the surgeon transmission maintenance supervisor. If you become severely ill with significant chest pain, shortness of breath, significant bleeding, or other life threatening symptoms, please call 911 or go to the ER right away. Continue to follow the instructions given by the ostomy nurse regarding care and management of your ostomy site. If you need to reach Dr. Urena directly, please call or text her on her cell phone at [phone]. Discharge orders & Medications Prescriptions: New acetaminophen 325 mg Tablet 650 mg PO Q6HR PRN (Reason: Pain, Mild) Qty: 100 RF: 0 loperamide 2 mg Capsule 2 mg PO TID MDD 12mg Qty: 120 RF: 6 ondansetron 4 mg tablet,disintegrating 4 mg PO Q6H PRN (Reason: nausea and vomiting) Qty: 30 RF: 0 oxycodone 5 mg tablet 5 mg PO Q6HR PRN (Reason: post operative pain) Qty: 30 RF: 0 Continued ascorbic acid (vitamin C) [Vitamin C] 500 mg Tablet 500 mg PO DAILY Qty: 0 RF: 0 multivitamin Capsule 1 cap PO DAILY Qty: 0 RF: 0 cholecalciferol (vitamin D3) [Vitamin D3] 1,000 unit Capsule 1,000 unit PO DAILY Qty: 0 RF: 0 calcium acetate 667 mg Capsule 667 mg PO DAILY Qty: 0 RF: 0 Fish Oil 300-500 mg Capsule 1 cap PO DAILY Qty: 0 RF: 0 flaxseed oil-omega 3,6,9 1 ml NA DAILY Qty: 0 RF: 0 levothyroxine 75 mcg tablet 75 mcg PO DAILY RF: 0 Align 4 mg Capsule 4 mg PO DAILY RF: 0 Discontinued neomycin 500 mg tablet 1 gram PO TID Qty: 6 RF: 0 erythromycin 500 mg tablet 1,000 mg PO TID Qty: 6 RF: 0 magnesium citrate Solution 300 ml PO BID Qty: 600 RF: 0 Follow up/Referrals: Caden Rivero MD [Primary Care Provider] - Prudence Urena MD [Physician] - (Follow up appointment WednesdayNovember 07 at 11:30AM) Diet/Activity/Treatments Diet: Regular Skin/Wound/Dressing Care Report to your healthcare provider any signs of infection, such as:: chills, fever, night sweats, increased pain, unusual drainage and unusual redness Visit Report/Discharge Packet Instructions: How to Care for Your Colostomy or Ileostomy, Colostomy / Ileostomy, [facility]: Wound Care Stand Alone Forms: Surgery Discharge Discharge Data Primary Care Provider: Caden Rivero Discharges patient from system. Discharge Date/Time: 11/05/19 13:15 Quality VTE Deep Vein Thrombosis/Pulmonary Embolism Present on Admission: No
[2019-11-05 08:00] VITALS: BP 105/67; PULSE 71; RESP 16; TEMP 36.5; O2SAT 97
[2019-11-05] MEDS: LEVOTHYROXINE 75 MCG TABLET PO (08:44)
[2019-11-05] MEDS: LACTOBACILLUS ACIDOPHILUS TABLET 1 EACH PO (08:44)
[2019-11-05] MEDS: PSYLLIUM HUSK 1 PACKET PO (08:44)
[2019-11-05] MEDS: LOPERAMIDE 2 MG CAPSULE PO (08:54)
--- NOTE | 2019-11-05 10:07 | CM.DPC ---
DCP continued: EMR reviewed: CM/Rn faxed face to face, D/c order and draft d/c summary to [facility] for their review. Gracie from [facility] [phone] called to let us know they have an appointment slot for patient set up for Wednesday and they will contact the patient but they also have a note that if any patients cancel for tomorrow 09/06/2020 to call the patient and see her. CM/RN will fax [facility] finalized DC summary when signed by Dr. Urena. Chantel Saldana RN.
[2019-11-05 12:00] VITALS: BP 130/66; PULSE 75; RESP 16; TEMP 36.8; O2SAT 99
--- NOTE | 2019-11-05 13:32 | PC.NURSE ---
1315 Pt dcd to home, Pts dtr here to transport/drive Pt home. Pt escorted out via w/c.
== END 2019-11-05 13:15 | disposition home health service (06) | DRG 330 ==
PROVIDERS: Specialist; Admitting Provider Surgery; PCP Family Medicine; Visit Provider Surgery
PROC: 0DTE0ZZ Resection of Large Intestine, Open Approach (ICD-10-PCS; principal; 2019-11-01 07:45)
PROC: 0WHR8YZ Insertion of Other Device into Genitourinary Tract, Via Natural or Artificial Opening Endoscopic (ICD-10-PCS; 2019-11-01 07:45)
DX: K57.20 Diverticulitis of large intestine with perforation and abscess without bleeding (principal); K56.609 Unspecified intestinal obstruction, unspecified as to partial versus complete obstruction; D62 Acute posthemorrhagic anemia; K66.0 Peritoneal adhesions (postprocedural) (postinfection); E03.9 Hypothyroidism, unspecified
CPT/HCPCS: 36415; 44208; 44213; 80048; 80053; 82962; 83735; 85025; 94762; C9290; J0744; J1100; J1170; J1650; J2250; J2405; J2704; J3010; J8501

== ENCOUNTER → 2020-01-31 10:38 | Outpatient (CLI) | payer OTHER, SELFPAY ==
[2019-11-02 10:06] VITALS: BMI 23.9
--- NOTE | 2020-01-31 10:40 | DI.RAD.S_ITS ---
PROCEDURE: FL BARIUM ENEMA INDICATIONS: evaluate rectal anastomosis for leak COMPARISON: None. FINDINGS: KUB: Preprocedural multiple punch press operator film demonstrates a normal bowel gas pattern. No suspicious abdominal calcifications. Visualized solid organ contours appear normal in size. No suspicious bony lesions. Colon: There is filling of the descending colon and in rectum. No evidence of extravasation. IMPRESSION: No colonic extravasation to indicate anastomotic leak. Dictated by: Deepthi Jacobsen M.D. on 01/31/2020 at 13:54 Approved by: Deepthi Jacobsen M.D. on 01/31/2020 at 13:55
== END ==
PROVIDERS: PCP Family Medicine; Referring Provider Surgery; Visit Provider Surgery
DX: Z09 Encounter for follow-up examination after completed treatment for conditions other than malignant neoplasm (principal); Z98.0 Intestinal bypass and anastomosis status; Z90.49 Acquired absence of other specified parts of digestive tract
CPT/HCPCS: 74270

== ENCOUNTER → 2020-03-24 14:43 | Outpatient (CLI) | payer OTHER, SELFPAY ==
[2019-11-02 10:06] VITALS: BMI 23.9
[2020-03-25 05:55] LABS: COVID19 Sendout Not Detected (Not Detect)
== END ==
PROVIDERS: PCP Family Medicine; Visit Provider Physician Assistant
DX: Z01.818 Encounter for other preprocedural examination (principal)
CPT/HCPCS: 87635

== ENCOUNTER 2020-03-27 11:54 | Inpatient (IN) | payer OTHER, SELFPAY ==
[2019-11-02 10:06] VITALS: BMI 23.9
[2020-03-21 08:48] VITALS: BMI 22.8
[2020-03-27] VITALS (19 sets, daily range): BP systolic 106–131; BP diastolic 65–81; PULSE 80–134; RESP 12–22; TEMP 35.8–37.6; O2SAT 95–100; BMI 22.8
--- NOTE | 2020-03-27 | PATH_ITS ---
[facility] Accession Number: [id number] . 01 Material submitted: . body - OSTOMY . 01 Clinical history: . COLOSTOMY CLOSURE . 02 Diagnosis: Ostomy Closure: Electrocauterized intestinal mucosa, consistent with colostomy site. No significant histomorphologic abnormality. [facility] 03/29/2020 1127 Local . 02 Electronically signed: . Gisel Flores MD, Pathologist NPI- [id number] . 01 Gross description: . Received in formalin, labeled ostomy, is an unoriented colon segment (length-1.0 cm, diameter-2.5 cm) with meyer smooth shiny unremarkable mucosa. The resection margin is inked blue. Turbine Attendant longitudinal sections submitted in cassettes A1 and A2. ([id number]) /MRV 03/28/2020 1505 Local . 02 Pathologist provided ICD-10: Z87.19 . 02 CPT . 163106 Performed at: 01 [facility] [address] [facility] [place], [place], [place] [id number] MD Neal Hogue MD Phone: [phone] Performed at: 02 [facility] [address] [place], [place] [id number] MD Polly Bush MD Phone: [phone]
[2020-03-27] MEDS: LACTATED RINGERS 1,000 ML 100 ML IV (12:54)
--- NOTE | 2020-03-27 13:04 | PM.PREOP ---
Pre-operative Note COVID-19 COVID-19 status: Negative Interval Note History & Physical reviewed/Exam performed by Physician: Yes Changes to H&P: No
[2020-03-27] MEDS: metroNIDAZOLE 500 MG/100 ML PIGGYBACK 100 MG IV (13:10)
[2020-03-27] MEDS: levoFLOXacin 500 MG/100 ML PIGGYBACK 100 MG IV (13:25)
--- NOTE | 2020-03-27 13:48 | SUR.OPER ---
Supine on padded OR bed, head on pillow, arms secured on padded arm boards at <90 degrees abduction, legs uncrossed, safety belt at thigh, tape over blanket over lower legs.
[2020-03-27] MEDS: BUPIVACAINE 0.25% W/ EPI 30 ML VIAL 60 ML INJ (14:09)
--- NOTE | 2020-03-27 15:23 | SUR.PHASEI ---
Addendum entered by Meliton Tay R.N. 03/27/20 16:39: Report called to AZEEM Hill. Pt transported to AC room 204 in stable condition. Monitoring resumed by AZEEM Hill Original Note: Pt arrived to PACU s/p ileostomy reversal. Monitoring resumed by this RN who found the pt to be in sinus tach with rhythm regular and rate of 133. Dr Colbert at bedside. Pt denied chest discomfort, but described a sensation of uncertainty or mild agitation which was attributed to her elevated HR. It was also discovered that the local medication used to numb her surgical site did have an epi additive. This also tributed to her elevated HR. All VS are stable.
--- NOTE | 2020-03-27 15:24 | PM.OP.1 ---
Operative Date/Time/Diagnoses Date of procedure: 03/27/20 Time of procedure: 15:24 Pre-op diagnosis: ileostomy Post-op diagnosis: same Procedure & Clinicians Procedure: ileostomy takedown; resection of small bowel associated with stoma Same procedure as scheduled: Yes Indications: This is a 60 yo woman s/p sigmoid resection and diverting ileostomy for severe diverticulitis. She has had a barium enema demonstrating patency of the sigmoid colon. Surgeon: Prudence Urena Click Yes if Unassisted: Yes Anesthesia Type: General Operative Notes Findings: moderate to dense adhesions around the ostomy 10cm into the abomen Specimen(s): other (small bowel resection, ostomy ) Estimated Blood Loss (mL): 1 Procedure in detail: The patient was brought into the OR and placed supine on the OR table. Sequential compression devices were placed on both legs and turned on. General anesthesia was induced and the patient was intubated. Appropriate perioperative antibiotics were given. Goldman catheter was placed in the bladder sterilely. The abdomen was prepped and draped in sterile fashion. Surgical time out was performed. Local anesthetic was infiltrated in the skin surrounding the ostomy site. An incision was made in the skin circumferentially around the ostomy site, and dissection was carried down to the fascia. At the fascia level adhesions were freed from the bowel in order to elevated both limbs of the loop ileostomy. I continued dissection below the level of the fascia, and I was able to elevate 15cm of small bowel out of the ostomy site. I attempted to dissect further beyond the ostomy site but the adhesions extended far into the abdomen. The two limbs of ileum were then anastomosed by creating a side by side stapled anastomosis using a blue load FRAN stapler which was 55mm. I then took off 1cm of the small bowel at the ostomy site using cuatery. I palpated within each limb of the bowel using the blunt end of a Debakey forcep and found good patency in each direction. I then oversewed the opening in the bowel using 3-0 PDS. I then reinforced the closure using interrupted 3-0 silk Lemberted sutures. The anastomosis was palpated for patency and no bubbling was seen as air was passed through the closure. The anastomosis was then dropped back into the abdomen. There were moderate adhesions which were then taken down to free the bowel. I then closed the fascia with running O PDS, reinforced with O Vicryl suture figure of 8's. I then injected the fascia with 0.25% Marcaine with epinephrine. I then closed the skin loosely with 3-O Nylon mattress sutures, and covered the site with 4x4 gauze secured with tape. The patient was then awakened from anesthesia and extubated. Needle sponge and instrument counts were correct x 2. The patient was transferred to the PACU in stable condition. Complications: none Post-operative Condition: stable Disposition: PACU
[2020-03-27] MEDS: HYDROMORPHONE 2 MG INJ IV ×2 (15:34→15:56)
[2020-03-27] MEDS: LACTATED RINGERS 1,000 ML 42 ML IV (16:26)
[2020-03-27] MEDS: LACTATED RINGERS 1,000 ML 80 ML IV (17:06)
[2020-03-27] MEDS: ONDANSETRON 4 MG/2 ML INJ IV (17:32)
--- NOTE | 2020-03-27 19:10 | PC.NURSE ---
Pt transferred to floor from PACU @ 1645; mild nausea, Zofran administered; IV fluids infusing; BTs hypoactive, stomach soft, not distended; gauze drsg c/d/i; NC at 3 L for desat, removed at 1900, O2 RA=95%; IS 1200, ls clear; pt denies pain.
[2020-03-27] MEDS: MORPHINE 2 MG/ML INJ IV (19:29)
[2020-03-28] MEDS: MORPHINE 2 MG/ML INJ IV ×5 (01:42→19:45)
[2020-03-28 03:49] VITALS: BP 115/63; PULSE 73; RESP 16; TEMP 36.5; O2SAT 98
[2020-03-28] MEDS: metroNIDAZOLE 500 MG/100 ML PIGGYBACK 100 MG IV ×2 (04:40→12:22)
[2020-03-28] MEDS: LACTATED RINGERS 1,000 ML 80 ML IV ×2 (04:40→21:14)
--- NOTE | 2020-03-28 05:42 | PC.NURSE ---
Pt is doing well Complains of moderate abdominal pain relieved with IV morphine. Gauze to abdomen has some shadow drainage. Not leaking. Pt has reported passing gas yet. Bowel tones hypoactive. Denied nausea this shift. 1p FWW to bathroom. LR@80mL/hr
[2020-03-28 06:10] LABS: Add Manual Diff / Slide Review NO; Basophils Absolute Auto 200 /uL (0-100); Basophils Percent Auto 1.2 % (0-2); Eosinophils Absolute Auto 0 /uL (0-450); Lymphocytes Absolute Auto 1300 /uL (1100-4500); Lymphocytes Percent Auto 10.3 % (25-40); Mean Corpuscular HGB Conc 35.3 % (30-36); Mean Corpuscular Volume 90.6 fL (80-100); Monocytes Absolute Auto 700 /uL (0-900); Monocytes Percent Auto 5.2 % (3-14); Neutrophils Absolute Auto 10500 /uL (1500-7000); Neutrophils Percent Auto 83.3 % (50-75); Platelet Count 203 X10^3/uL (150-400); Red Blood Cell Count 3.76 X10^6/uL (4.0-5.2); Red Cell Distribution Width 13.9 % (11.6-14.8); White Blood Cell Count 12.6 X10^3/uL (4.5-11.0)
[2020-03-28 06:22] LABS: BUN Creatinine Ratio 20.6 (6-22); Blood Urea Nitrogen 13 mg/dL (7-17); Calcium 9.1 mg/dL (8.4-10.2); Carbon Dioxide 23 mmol/L (22-32); Chloride 106 mmol/L (98-107); Estimated Glomerular Filt Rate > 60.0 mL/min (>60); Glucose 110 mg/dL (70-100); HEMOLYSIS < 15 (0-50); Magnesium 1.8 mg/dL (1.6-2.3); Potassium 3.9 mmol/L (3.4-5.1); Sodium 135 mmol/L (137-145)
[2020-03-28 07:30] VITALS: BP 102/57; PULSE 71; RESP 16; TEMP 36.8; O2SAT 97
[2020-03-28] MEDS: ACETAMINOPHEN 325 MG TABLET 650 MG PO ×3 (08:50→18:45)
[2020-03-28] MEDS: MAGNESIUM SULFATE 2 GM/50 ML PIGGYBACK IV (08:50)
[2020-03-28] MEDS: LEVOTHYROXINE 75 MCG TABLET PO (08:52)
[2020-03-28] MEDS: HEPARIN 5,000 UNIT/ML VIAL 5000 UNIT SUBCUT ×2 (08:52→21:11)
--- NOTE | 2020-03-28 09:06 | PM.PN.1 ---
Subjective Subjective Date Patient Seen: 03/28/20 Time Patient Seen: 09:06 Interval history: No acute events overnight. Patient had some nausea last evening, but nothing overnight. Pain is well controlled with intermittent doses of morphine. She denies nausea this morning. Feels a little bit bloated. Not passing any gas. Exam Vital Signs (past 8 hours): - 03/28/20 03:49 03/28/20 07:30 Temperature 97.7 F 98.2 F Pulse Rate 73 71 Respiratory Rate 16 16 Blood Pressure 115/63 102/57 L Pulse Oximetry 98 97 Oxygen Delivery Method Nasal Cannula Oxygen Flow Rate 0 Narrative Exam Narrative: GENERAL: Alert, comfortable. Appears stated age. Answers questions promptly and appropriately. Vital signs noted. HENT: Normocephalic, atraumatic. Hearing intact. Oral mucosa is pink and moist. EYES: Conjunctiva pink, sclera white, no periorbital swelling. CARDIOVASCULAR: Regular rate. No pedal edema. RESPIRATORY: Non-tachypneic, breathing comfortably on room air. GASTROINTESTINAL: Abdomen soft and non-distended; dressing clean and intact, appropriate tenderness to palpation for postop day 1 GENITALURINARY: No flank tenderness. MUSCULOSKELETAL: Equal tone and mass bilaterally. SKIN: Warm, dry, soft, appropriate color for ethnicity. No other lesions, rashes, or wounds. NEURO: Alert and Oriented X 3. No gross sensory deficits, or cognitive issues. PSYCH: Appropriate affect and mood. Objective Labs Result Diagrams: 03/28/20 05:58 03/28/20 05:58 Labs: Laboratory Results - last 24 hr 03/28/20 03/28/20 05:58 05:58 WBC 12.6 H RBC 3.76 L Hgb 12.0 Hct 34.0 L MCV 90.6 MCH 32.0 MCHC 35.3 RDW 13.9 Plt Count 203 Neut % (Auto) 83.3 H Lymph % (Auto) 10.3 L [place] % (Auto) 5.2 Eos % (Auto) 0.0 L Baso % (Auto) 1.2 Neut # (Auto) 95780 H Lymph # (Auto) 1300 [place] # (Auto) 700 Eos # (Auto) 0 Baso # (Auto) 200 H Sodium 135 L Potassium 3.9 Chloride 106 Carbon Dioxide 23 BUN 13 Creatinine 0.63 Estimated GFR > 60.0 BUN/Creatinine Ratio 20.6 Glucose 110 H Calcium 9.1 Magnesium 1.8 Assessment & Plan Assessment and plan (1) S/P small bowel resection: Status: Acute (2) Status post partial colectomy: Status: Acute (3) Hypothyroid: Problem details: stable, on home med Status: Acute Assessment & Plan narrative: This is a 60-year-old woman who is postop day 1 from her ileostomy takedown. So far she is doing fairly well, with minimal nausea, and pain well controlled. No indication of return of bowel function as of yet. We will do clear liquids for now, and encourage ambulation. We will correct her electrolytes, with giving her 2 g of magnesium. We will advance her diet as she shows signs of returning bowel function. COVID-19 COVID-19 status: Negative Time Spent With Patient Time with patient: 15-24 minutes Quality VTE Deep Vein Thrombosis/Pulmonary Embolism Present on Admission: No
--- NOTE | 2020-03-28 12:02 | CM.DANOTE ---
Addendum entered by Winnie Watson LPN 03/28/20 12:17: Spoke with [facility]. Gracie confirms the team followed pt until the end of October. At that point was was doing well and was returning to work. Original Note: Discharge Planning/Care Management Case received, EMR reviewed. Discussed in Team Rounds. Pt is a 60 year old female who admitted yesterday for a scheduled take-down of her ileostomy (placed as part of surgery done in October by Dr. Urena) Dr. Urena: surgeon PCP: Dr. Rivero. Payer: [facility] Medical Admission status: INPT: confirmed by UR AZEEM Naylor. Pt today is slowly recovering and Dr. Urena is encouraging her to ambulate. Dr. Urena notes that she plans to advance pt's diet as she begins to show signs of returning bowel function. Pt did d/c to home last time with [facility]. Likely HH will not be needed but will be checking in with pt as she recovers to assist with d/c issues and options as these are clearer. CM Discharge Assessment Start: 03/28/20 11:59 Freq: Status: Active Protocol: Document 03/28/20 11:59 ITV (Rec: 03/28/20 12:02 ITV [id number]) Discharge Planning Assessment Advance Directives? Yes Advance Directives on File No History Provided By Medical Record Has Patient been admitted in last 30 No days? Comment last admission to was in October which included surgery with ileostomy. Pt returns now for takedown of the ileostomy Prior Living Arrangements House Household Members spouse,children Independent with ADL's Yes Is patient alert and oriented? Yes Whiteboard Updated in Patient Room with Yes name and ext. # of A/C Technician Review Status In Process Pre-Anesthesia Assessment Start: 03/21/20 08:48 Freq: Status: Complete Protocol: Document 03/21/20 08:48 CAB (Rec: 03/21/20 09:20 CAB [id number]) Pre-Anesthesia Assessment Patient Information Reviewed Via Phone Assessment Assessment Completed With Patient Primary Care Provider Caden Rivero Seen Specialist in Last 12 Months Yes Specialist Seen General surgeon Primary Language Scottish Preferred Language [employer] Specialist Required No Height 157.48 cm Weight 56.699 kg Body Mass Index (BMI) 22.8 Hearing Ability Normal Visual Assist Glasses Barriers to Learning None Other Aids No Hx Anesthesia Reactions Yes: Nausea, vomiting Hx Family Anesthesia Reaction No Hx Malignant Hyperthermia No Hx Blood Transfusions No Hx Blood Transfusion Reaction No Anesthesia Review Requested No Filenet Architect No alcohol intake current alcohol intake frequency a few times a month Smoking Status Never smoker Substance Use Type does not use Pain Present Denied Pain History of Falling (Recent or History of No ) Patient is completely paralyzed or No completely immobile Mental Status Oriented to own ability Is patient on oxygen? No Does patient have DON/SOB No Hx Sleep Apnea No CPAP/BIPAP use not prescribed Currently Taking a Beta Justine No Can You Climb a Flight of Stairs Without Yes SOB Hx Chest Pain No Hx SOB No Hx Syncope or Dizziness No Anti-Coagulant Therapy No Has a Fuel Injection Servicer No Cardiac Testing No Hx Pacemaker/ICD No Pacemaker Rep Required? No Cardiac Clearance Received Not Applicable Diet Type At Home Regular dysphagia No Urinary Catheter Present No Hx Urinary Self Catheterization No Diabetes No Patient No Lactating No Hx Drug Resistant Organism No Presence of External or Internal Medical No: Ileostomy in place Devices Have you had any close contact with No someone diagnosed with COVID-19? Evaluation/Screening for possible COVID- Yes 19 infection completed? Marital Status Lives With spouse,children Prior Living Arrangements House Number of Floors (Floors) Two Floors Support System Child/Children,Spouse Does the Patient Have Assistance After Yes Surgery Patient Discharge Plan Description Return Home Comment Pt advised 3-5 day length of stay per surgeon Feels Safe in Current Environment Yes Been Physically Hurt or Threatened By a No Person in Current Environment Do you have thoughts of harming yourself None or others? Are you currently considering suicide? No Do you have a plan to hurt yourself or No Plan others? Do You Have Any Spiritual Beliefs That No May Affect Your HC Choices? Do You Have Any Cultural Practices That No May Affect Your HC Choices? Comment Chauncey Who Can We Speak to About Patient's Care Family, friends Identifying Code for Release of Patient Declines to issue Information Health Care Proxy/Next of Kin Aakash () Health Care Proxy Emergency Contact Name Aakash Emergency Contact Advance Directives? Yes Advance Directives on File No Requested Patient Bring Advanced Yes Directives DOS Power of Filler In Yes Power of Filler In Name Aakash () Power of Filler In PAC Instructions Medications to take/avoid,No ETOH/petroleum product on skin DOS,NPO,Post-op transportation,Pre-surgical wash,Sturdy shoes/comfortable clothes,Do not bring valuables and remove jewelry
[2020-03-28 12:17] VITALS: BP 96/90; PULSE 76; RESP 16; TEMP 36.7; O2SAT 97
[2020-03-28] MEDS: CIPROFLOXACIN 400 MG/200 ML PIGGYBACK 200 MG IV (14:04)
--- NOTE | 2020-03-28 14:58 | PC.NURSE ---
Day Shift- Pt A&OX4, able to make her needs known using call light. Rates right side abd aching pain 3-5/10. PRN IV Morphine 2mg X2 given at 0852 an 1410. Has good effect. Right lower quadrant abd dressing has sero-sang dry drainage, lightly shadowing through dressing, no leaking. Plan to change today per Dr. Urena. Tolerating clear liquid diet, had ensure clear drink with lunch. Denied nausea. Reported belching, no flatus passed yet this shift. Ambulated in halls X2 with SBA with DEFECT REPAIRER GLASSWARE, tolerated well. Ambulating 2-3 loops around [place] and [facility]. Also sat up in chair throughout shift. At 1215, Pt's BP was 69/60 and pulse 76 while sitting in chair having lunch, stated feeling slightly light-headed. Encouraged fluids and clear liquids off tray. And then assisted back to bed by DEFECT REPAIRER GLASSWARE without issue. On pt's second walk in halls around 1450, pt denied feeling light-headed or dizzy.
[2020-03-28 15:31] VITALS: BP 99/67; PULSE 71; RESP 18; TEMP 36.8; O2SAT 99
--- NOTE | 2020-03-28 17:16 | PC.NURSE ---
Addendum entered by Clara Morillo R.N. 03/28/20 22:20: Pt ambulated twice this shift around hallway loop. Tolerated well IVF infusing as per orders. Med @ 1945 for discomfort w/good relief. Call light w/in reach, pt calls appropriately for needs. Continue w/plan of care. Original Note: Pt denies discomfort @ this time. Lungs clear, SpO2 98% RA IV of LR @ 80cc/hr infusing into RFA via pump w/o incidence. Dsg w/ small shadow drainage noted. Call light w/in reach. Pt calls appropriately for needs.
[2020-03-28 19:41] VITALS: BP 107/58; PULSE 64; RESP 20; TEMP 36.9
[2020-03-28 23:35] VITALS: BP 97/51; PULSE 66; RESP 16; TEMP 37; O2SAT 96
[2020-03-29] MEDS: ACETAMINOPHEN 325 MG TABLET 650 MG PO ×4 (00:02→17:56)
[2020-03-29] MEDS: MORPHINE 2 MG/ML INJ IV ×3 (00:03→14:52)
[2020-03-29 05:20] VITALS: BP 101/58; PULSE 68; RESP 16; TEMP 37; O2SAT 95
[2020-03-29 06:54] LABS: Add Manual Diff / Slide Review NO; Basophils Absolute Auto 100 /uL (0-100); Basophils Percent Auto 0.9 % (0-2); Eosinophils Absolute Auto 100 /uL (0-450); Eosinophils Percent Auto 1.1 % (2-4); Hematocrit 32.2 % (36-46); Hemoglobin 11.3 g/dL (12.0-16.0); Lymphocytes Absolute Auto 2500 /uL (1100-4500); Lymphocytes Percent Auto 36.5 % (25-40); Mean Corpuscular Hemoglobin 32.1 PG (26-34); Mean Corpuscular Volume 91.7 fL (80-100); Monocytes Absolute Auto 500 /uL (0-900); Monocytes Percent Auto 8.1 % (3-14); Neutrophils Absolute Auto 3600 /uL (1500-7000); Neutrophils Percent Auto 53.4 % (50-75); Platelet Count 160 X10^3/uL (150-400); Red Blood Cell Count 3.51 X10^6/uL (4.0-5.2); Red Cell Distribution Width 14.1 % (11.6-14.8); White Blood Cell Count 6.7 X10^3/uL (4.5-11.0)
[2020-03-29 07:06] LABS: BUN Creatinine Ratio 14.8 (6-22); Blood Urea Nitrogen 9 mg/dL (7-17); Calcium 8.5 mg/dL (8.4-10.2); Carbon Dioxide 27 mmol/L (22-32); Chloride 106 mmol/L (98-107); Estimated Glomerular Filt Rate > 60.0 mL/min (>60); Glucose 100 mg/dL (70-100); HEMOLYSIS < 15 (0-50); Magnesium 2.1 mg/dL (1.6-2.3); Potassium 3.3 mmol/L (3.4-5.1); Sodium 137 mmol/L (137-145)
[2020-03-29 07:57] VITALS: BP 101/66; PULSE 63; RESP 16; TEMP 36.5; O2SAT 97
[2020-03-29] MEDS: HEPARIN 5,000 UNIT/ML VIAL 5000 UNIT SUBCUT ×2 (08:04→20:00)
[2020-03-29] MEDS: LEVOTHYROXINE 75 MCG TABLET PO (08:04)
[2020-03-29] MEDS: POTASSIUM CHLORIDE 60 MEQ in SODIUM CHLORIDE 0.9% 500 ML 88.333 ML IV (10:04)
--- NOTE | 2020-03-29 12:55 | P.PN_ITS ---
Subjective Subjective Date Patient Seen: 03/29/20 Time Patient Seen: 12:55 Interval history: No acute events overnight. Pt has some nausea this morning which passed without medication. Has not passed any flatus. Exam Vital Signs (past 8 hours): - 03/29/20 05:20 03/29/20 07:57 Temperature 98.6 F 97.7 F Pulse Rate 68 63 Respiratory Rate 16 16 Blood Pressure 101/58 L 101/66 Pulse Oximetry 95 97 Oxygen Delivery Method Room Air Oxygen Flow Rate 0 Narrative Exam Narrative: GENERAL: Alert, comfortable. Appears stated age. Answers questions promptly and appropriately. Vital signs noted. HENT: Normocephalic, atraumatic. Hearing intact. Oral mucosa is pink and moist. EYES: Conjunctiva pink, sclera white, no periorbital swelling. CARDIOVASCULAR: Regular rate. No pedal edema. RESPIRATORY: Non-tachypneic, breathing comfortably on room air. GASTROINTESTINAL: Abdomen soft and non-distended; incision c/d/i; appropriate TTP GENITALURINARY: No flank tenderness. MUSCULOSKELETAL: Equal tone and mass bilaterally. SKIN: Warm, dry, soft, appropriate color for ethnicity. No other lesions, rashes, or wounds. NEURO: Alert and Oriented X 3. No gross sensory deficits, or cognitive issues. PSYCH: Appropriate affect and mood. Objective Labs Result Diagrams: 03/29/20 06:43 03/29/20 06:43 Labs: Laboratory Results - last 24 hr 03/29/20 03/29/20 06:43 06:43 WBC 6.7 RBC 3.51 L Hgb 11.3 L Hct 32.2 L MCV 91.7 MCH 32.1 MCHC 35.0 RDW 14.1 Plt Count 160 Neut % (Auto) 53.4 D Lymph % (Auto) 36.5 D [place] % (Auto) 8.1 Eos % (Auto) 1.1 L Baso % (Auto) 0.9 Neut # (Auto) 3600 Lymph # (Auto) 2500 [place] # (Auto) 500 Eos # (Auto) 100 Baso # (Auto) 100 Sodium 137 Potassium 3.3 L Chloride 106 Carbon Dioxide 27 BUN 9 Creatinine 0.61 Estimated GFR > 60.0 BUN/Creatinine Ratio 14.8 Glucose 100 Calcium 8.5 Magnesium 2.1 Assessment & Plan Assessment and plan (1) S/P small bowel resection: Status: Acute (2) Status post partial colectomy: Status: Acute (3) Hypothyroid: Problem details: stable, on home med Status: Acute Assessment & Plan narrative: This is a 60-year-old woman who is postop day 2 from her ileostomy takedown. So far she is doing fairly well, with minimal nausea, and pain well controlled. Starting to have some crampy abdominal pain; increasing bowel sounds. We will continue clear liquids for now, and encourage ambulation. We will correct her electrolytes. We will advance her diet as she shows signs of returning bowel function. COVID-19 COVID-19 status: Negative Time Spent With Patient Time with patient: 15-24 minutes Quality VTE Deep Vein Thrombosis/Pulmonary Embolism Present on Admission: No
[2020-03-29 13:18] VITALS: BP 96/58; PULSE 74; RESP 16; TEMP 36.7; O2SAT 99
[2020-03-29] MEDS: SODIUM CHLORIDE 0.9% FLUSH 10 ML IV ×2 (14:51→20:01)
--- NOTE | 2020-03-29 15:49 | PC.NURSE ---
Day Shift- Right side abd dressing changed this AM, removed dressing for a moderate amount of sero-sang drainage, mostly dry, minimal fresh drainage to lower part of dressing. Incision well approximated with sutures intact. Area cleansed with NS, pat dry and 3-4X4 gauze placed over incision and secured with paper tape. Pt tolerated well. No S/S of infection noted. pain controlled with scheduled Tylenol. 1-2/10 dull aching to right lower quadrant abd. At 3/10 pt states needing additional relief. Pt ambulated X2 around unit, for at least 3 laps each time. SBA, pt steady gait. Had shower this afternoon, ok per Dr. Urena. Changed RLQ abd dressing after shower. Small amount of sero-sang drainage noted on dressing, area cleansed with NS and pat dry with gauze. 3-4X4 gauze placed over incision and secured with paper tape. PRN Morphne IV given at 1445 for 3/10 pain to RLQ abd, pt is trying to decrease amount of PRN Morphine reflecting her pain scale as noted above. Pt did pass air fluffs of flatus around 1300 and again had another flatus passed at 1400. Tolerating clear liquid diet, mild nausea this AM after breakfast and settled on it's own, no further nausea throughout shift.
[2020-03-29 16:10] VITALS: BP 106/65; PULSE 65; RESP 16; TEMP 36.6; O2SAT 99
[2020-03-29] MEDS: LACTATED RINGERS 1,000 ML 80 ML IV (16:10)
[2020-03-29 20:35] VITALS: BP 99/60; PULSE 66; RESP 17; TEMP 37.1; O2SAT 95
[2020-03-30 00:25] VITALS: BP 104/59; PULSE 67; RESP 16; TEMP 37.1; O2SAT 95
[2020-03-30] MEDS: ACETAMINOPHEN 325 MG TABLET 650 MG PO ×4 (01:15→17:36)
[2020-03-30] MEDS: LACTATED RINGERS 1,000 ML 80 ML IV (04:48)
[2020-03-30 05:10] VITALS: BP 104/71; PULSE 62; RESP 16; TEMP 36.8; O2SAT 96
[2020-03-30 06:00] LABS: Add Manual Diff / Slide Review NO; Basophils Absolute Auto 100 /uL (0-100); Basophils Percent Auto 0.8 % (0-2); Eosinophils Absolute Auto 200 /uL (0-450); Eosinophils Percent Auto 2.7 % (2-4); Hematocrit 33.4 % (36-46); Hemoglobin 11.6 g/dL (12.0-16.0); Lymphocytes Absolute Auto 3000 /uL (1100-4500); Lymphocytes Percent Auto 37.7 % (25-40); Mean Corpuscular HGB Conc 34.6 % (30-36); Mean Corpuscular Hemoglobin 31.8 PG (26-34); Mean Corpuscular Volume 91.8 fL (80-100); Monocytes Absolute Auto 600 /uL (0-900); Monocytes Percent Auto 7.3 % (3-14); Neutrophils Absolute Auto 4100 /uL (1500-7000); Neutrophils Percent Auto 51.5 % (50-75); Platelet Count 162 X10^3/uL (150-400); Red Blood Cell Count 3.64 X10^6/uL (4.0-5.2); Red Cell Distribution Width 14.3 % (11.6-14.8); White Blood Cell Count 7.9 X10^3/uL (4.5-11.0)
[2020-03-30 06:06] LABS: BUN Creatinine Ratio 8.6 (6-22); Blood Urea Nitrogen 5 mg/dL (7-17); Calcium 8.9 mg/dL (8.4-10.2); Carbon Dioxide 30 mmol/L (22-32); Chloride 107 mmol/L (98-107); Estimated Glomerular Filt Rate > 60.0 mL/min (>60); Glucose 94 mg/dL (70-100); HEMOLYSIS < 15 (0-50); Potassium 3.5 mmol/L (3.4-5.1); Sodium 138 mmol/L (137-145)
--- NOTE | 2020-03-30 07:13 | PC.NURSE ---
Dr. Urena called updated pt's. status & pain is controlled with 650 mg. of Tylenol. MD will advanced her diet to full liquids, will report to day RN.
[2020-03-30 08:00] VITALS: BP 103/69; PULSE 64; RESP 18; TEMP 36.6; O2SAT 97
[2020-03-30] MEDS: POTASSIUM CHLORIDE 20 MEQ TAB 40 MEQ PO (08:32)
[2020-03-30] MEDS: LEVOTHYROXINE 75 MCG TABLET PO (08:33)
[2020-03-30] MEDS: HEPARIN 5,000 UNIT/ML VIAL 5000 UNIT SUBCUT ×2 (08:33→22:18)
[2020-03-30] MEDS: SODIUM CHLORIDE 0.9% FLUSH 10 ML IV ×2 (08:34→22:19)
[2020-03-30 12:09] VITALS: BP 121/60; PULSE 65; RESP 18; TEMP 37.1; O2SAT 98
--- NOTE | 2020-03-30 13:56 | PM.PN.1 ---
Subjective Subjective Date Patient Seen: 03/30/20 Time Patient Seen: 13:00 Interval history: No acute events overnight. Pt denies nausea. Passing flatus and small liquid stool. Exam Vital Signs (past 8 hours): - 03/30/20 08:00 03/30/20 12:09 Temperature 97.8 F 98.7 F Pulse Rate 64 65 Respiratory Rate 18 18 Blood Pressure 103/69 121/60 Pulse Oximetry 97 98 Oxygen Delivery Method Room Air Oxygen Flow Rate 0 Narrative Exam Narrative: GENERAL: Alert, comfortable. Appears stated age. Answers questions promptly and appropriately. Vital signs noted. HENT: Normocephalic, atraumatic. Hearing intact. Oral mucosa is pink and moist. EYES: Conjunctiva pink, sclera white, no periorbital swelling. CARDIOVASCULAR: Regular rate. No pedal edema. RESPIRATORY: Non-tachypneic, breathing comfortably on room air. GASTROINTESTINAL: Abdomen soft and non-distended; incision c/d/i; appropriate TTP GENITALURINARY: No flank tenderness. MUSCULOSKELETAL: Equal tone and mass bilaterally. SKIN: Warm, dry, soft, appropriate color for ethnicity. No other lesions, rashes, or wounds. NEURO: Alert and Oriented X 3. No gross sensory deficits, or cognitive issues. PSYCH: Appropriate affect and mood. Objective Labs Result Diagrams: 03/30/20 05:30 03/30/20 05:30 Labs: Laboratory Results - last 24 hr 03/30/20 03/30/20 05:30 05:30 WBC 7.9 RBC 3.64 L Hgb 11.6 L Hct 33.4 L MCV 91.8 MCH 31.8 MCHC 34.6 RDW 14.3 Plt Count 162 Neut % (Auto) 51.5 Lymph % (Auto) 37.7 [place] % (Auto) 7.3 Eos % (Auto) 2.7 Baso % (Auto) 0.8 Neut # (Auto) 4100 Lymph # (Auto) 3000 [place] # (Auto) 600 Eos # (Auto) 200 Baso # (Auto) 100 Sodium 138 Potassium 3.5 Chloride 107 Carbon Dioxide 30 BUN 5 L Creatinine 0.58 Estimated GFR > 60.0 BUN/Creatinine Ratio 8.6 Glucose 94 Calcium 8.9 Magnesium 2.0 Assessment & Plan Assessment and plan (1) S/P small bowel resection: Status: Acute (2) Status post partial colectomy: Status: Acute (3) Hypothyroid: Problem details: stable, on home med Status: Acute Assessment & Plan narrative: This is a 60-year-old woman who is postop day 3 from her ileostomy takedown. She is starting to pass some gas. C/o crampy abdominal pain. Denies nausea. Plan: Advance diet to fulls, and to low residual as tolerated Restart home probiotic and metamucil Ambulate as tolerated Dispo planning once pt has passed stool COVID-19 COVID-19 status: Negative Time Spent With Patient Time with patient: 15-24 minutes Quality VTE Deep Vein Thrombosis/Pulmonary Embolism Present on Admission: No
[2020-03-30 15:20] VITALS: BP 117/70; PULSE 71; RESP 17; TEMP 36.3; O2SAT 97
--- NOTE | 2020-03-30 18:05 | PC.NURSE ---
Addendum entered by Gavi Sanders R.N. 03/30/20 22:42: Reports abdominal cramping has improved. Denies passing of flatus. Denies nausea. Ambulatory in hallway this shift. Now with scd's on BL ready for sleep. Dressing to right lower abdominal quadrant remains dry and intact. Original Note: Pt up ad krupa in hallway ambulatory with daughter. Reports desires no meds other than tylenol to treat abdominal cramps. Reports no flatus since this morning. Encouraged ambulation with rest periods. Warm blankets alternating with ice packs to abdomen. Encouraged left lying position in bed to promote passing of flatus. Diet order clarified with Dr. Urena per surgery RN, Meche. Pt may have diet as tolerated. Per conversation with dayshift RN, ordered pt transitional postop diet.
[2020-03-30 20:21] VITALS: BP 127/74; PULSE 80; RESP 16; TEMP 37.5; O2SAT 96
[2020-03-30] MEDS: PSYLLIUM HUSK 1 PACKET PO (22:18)
[2020-03-31] VITALS: BP 98/72; PULSE 75; RESP 16; TEMP 37.3; O2SAT 95
[2020-03-31] MEDS: ACETAMINOPHEN 325 MG TABLET 650 MG PO ×4 (00:01→18:09)
[2020-03-31 05:00] VITALS: BP 102/76; PULSE 80; RESP 16; TEMP 36.8; O2SAT 98
[2020-03-31 07:30] VITALS: BP 113/60; PULSE 76; RESP 18; TEMP 36.7; O2SAT 97
--- NOTE | 2020-03-31 08:58 | PM.PN.1 ---
Subjective Subjective Date Patient Seen: 03/31/20 Time Patient Seen: 08:58 Interval history: No acute events over night. Pt passed gas yesterday but none since then. She has not passed any bowel movement. She has 5/10 cramping pain. Denies bloating or nausea. Exam Vital Signs (past 8 hours): - 03/31/20 05:00 Temperature 98.2 F Pulse Rate 80 Respiratory Rate 16 Blood Pressure 102/76 Pulse Oximetry 98 Oxygen Delivery Method Room Air Oxygen Flow Rate 0 Narrative Exam Narrative: GENERAL: Alert, comfortable. Appears stated age. Answers questions promptly and appropriately. Vital signs noted. HENT: Normocephalic, atraumatic. Hearing intact. Oral mucosa is pink and moist. EYES: Conjunctiva pink, sclera white, no periorbital swelling. CARDIOVASCULAR: Regular rate. No pedal edema. RESPIRATORY: Non-tachypneic, breathing comfortably on room air. GASTROINTESTINAL: Abdomen soft and non-distended; incision c/d/i; appropriate TTP GENITALURINARY: No flank tenderness. MUSCULOSKELETAL: Equal tone and mass bilaterally. SKIN: Warm, dry, soft, appropriate color for ethnicity. No other lesions, rashes, or wounds. NEURO: Alert and Oriented X 3. No gross sensory deficits, or cognitive issues. PSYCH: Appropriate affect and mood. Objective Labs Result Diagrams: 03/30/20 05:30 03/30/20 05:30 Assessment & Plan Assessment and plan (1) S/P small bowel resection: Status: Acute (2) Status post partial colectomy: Status: Acute (3) Hypothyroid: Problem details: stable, on home med Status: Acute Assessment & Plan narrative: This is a 60-year-old woman who is postop day 4 from her ileostomy takedown. She passed some gas yesterday. Has not passed any stool. Plan: Low residual diet Home probiotic and metamucil Ambulate as tolerated Dispo planning once pt has passed stool COVID-19 COVID-19 status: Negative Time Spent With Patient Time with patient: 15-24 minutes Quality VTE Deep Vein Thrombosis/Pulmonary Embolism Present on Admission: No
[2020-03-31] MEDS: LEVOTHYROXINE 75 MCG TABLET PO (10:32)
[2020-03-31] MEDS: HEPARIN 5,000 UNIT/ML VIAL 5000 UNIT SUBCUT ×2 (10:32→20:14)
[2020-03-31] MEDS: LACTOBACILLUS ACIDOPHILUS TABLET 1 EACH PO ×2 (10:32→16:46)
[2020-03-31] MEDS: SODIUM CHLORIDE 0.9% FLUSH 10 ML IV (10:33)
[2020-03-31] MEDS: PSYLLIUM HUSK 1 PACKET PO ×2 (10:33→20:13)
[2020-03-31 11:00] VITALS: BP 119/74; PULSE 72; RESP 18; TEMP 36.5; O2SAT 99
[2020-03-31 15:20] VITALS: BP 99/67; PULSE 69; RESP 17; TEMP 37.3
--- NOTE | 2020-03-31 15:37 | PC.NURSE ---
Shift summary: Patient reports cramping has improved today and tolerated her advanced low residual diet. Ambulating independently in room and in halls. Had two mushy brownish yellow bowel movements today. Voiding without difficulty. Patient pleasant and talkative, able to make needs known. Call light within reach. Anticipate discharge to home tomorrow.
--- NOTE | 2020-03-31 15:49 | CM.DPC ---
DCP Cont: Patient has been ambulating in room. She has not yet had bowel movement. She is continuing on advanced diet. Plan is for home when she is medically stable. P: DCP to continue to follow. Patient should be able to go home possibly tomorrow, depending on bowel function. Noy Richard RN/Brake Operator [employer]
--- NOTE | 2020-03-31 17:38 | PC.NURSE ---
Addendum entered by Gavi Sanders R.N. 03/31/20 23:44: Quietly resting in bed without signs of distress or discomfort. Eyes closed and resting comfortably. Addendum entered by Gavi Sanders R.N. 03/31/20 17:52: Dr. Urena checks in by telephone. Plans to discharge patient in the a.m. and this meets with pt's approval and desire. Informed MD pt's IV requires restart d/t site. Site is benign and pt denies complaints with regards to iv site right forearm. Per Dr. Urena telephone order obtained that pt's iv may be left out. Original Note: Pt awake, alert and resting quietly in bed with daughter @ bedside. Pt reports abdominal cramping much improved over last evening. Passing stool. Ambulatory in room and in hallway with daughter. Rates incisional pain 1/10 and prefers tylenol only to manage. 4 x 4 gauze dressing to right lower abdominal quadrant is dry and intact. Bowel tones present. Taking diet in small amounts per pt statement. Denies nausea.
[2020-03-31 19:33] VITALS: BP 114/72; PULSE 69; RESP 16; TEMP 37.1; O2SAT 99
[2020-04-01 00:10] VITALS: BP 113/72; PULSE 66; RESP 20; TEMP 36.2; O2SAT 96
--- NOTE | 2020-04-01 00:39 | PC.NURSE ---
Patient seen and assessed at 0016. Is alert and oriented. Breath sounds diminished at bases but CTA with RA sat of 96%. HRR. Denies nausea. BT present and abdomen is soft. Is having 3/10 incisional pain; medicated with scheduled Tylenol and provided ice pack for comfort. Dressing to RLQ of abdomen is CDI. Denies dysuria, frequency or urgency with urination. Able to to turn self in bed and is out of bed independently. Fall risk score is low. Refusing SCD's despite education re: DVT prevention; reminded to ankle wave.
[2020-04-01 05:00] VITALS: BP 116/64; PULSE 64; RESP 18; TEMP 36.5; O2SAT 97
[2020-04-01] MEDS: ACETAMINOPHEN 325 MG TABLET 650 MG PO ×2 (06:09)
[2020-04-01 08:36] VITALS: BP 108/64; PULSE 73; RESP 18; TEMP 36.7; O2SAT 96
[2020-04-01] MEDS: PSYLLIUM HUSK 1 PACKET PO (08:46)
[2020-04-01] MEDS: LEVOTHYROXINE 75 MCG TABLET PO (08:47)
[2020-04-01] MEDS: LACTOBACILLUS ACIDOPHILUS TABLET 1 EACH PO (08:47)
--- NOTE | 2020-04-01 09:42 | PC.NURSE ---
Discharge instructions and home care handouts reviewed with patient, she states understanding and has no further questions or concerns at this time. Gauze with paper tape intact and clean to abdominal incision. patient states she will call Dr. Clark office today to schedule her follow up appointment for in 2 weeks. escorted out via wheelchair with all belongings to be discharged to home with .
--- NOTE | 2020-04-03 06:34 | P.DS_ITS ---
History of Present Illness History of Present Illness Date Patient Seen: 03/31/20 Time Patient Seen: 16:34 Chief complaint: [id number] Colostomy Closure Narrative: Pt was admitted for post op management of pain and return of bowel function after small bowel resection and ileostomy takedown. Discharge Providers Provider Date of admission: 03/27/20 11:54 Discharge Date: 04/01/20 Primary care physician: Caden Rivero MD Discharge provider: Prudence Urena MD Summary Hospital Course Discharge Diagnosis: history of diverticulitis, sigmoid resection, and diverting loop ileostomy, s/p ileostomy takedown on this admission Hospital Course: The patient was admitted after surgery for pain control and hy dration until return of bowel function. She progressed as expected and had return of bowel function on the evening of POD#4 Status at Discharge Cognitive/behavioral status at discharge: at baseline, oriented Functional status at discharge: independent ambulation Overall status at discharge: patient is progressing back to baseline Time Spent with Patient Time spent: Greater than 30 minutes Exam Vital Signs (past 8 hours): Oxygen Delivery Method Room Air Oxygen Flow Rate 0 Narrative Exam Narrative: GENERAL: Alert, comfortable. Appears stated age. Answers questions promptly and appropriately. Vital signs noted. HENT: Normocephalic, atraumatic. Hearing intact. Oral mucosa is pink and moist. EYES: Conjunctiva pink, sclera white, no periorbital swelling. CARDIOVASCULAR: Regular rate. No pedal edema. RESPIRATORY: Non-tachypneic, breathing comfortably on room air. GASTROINTESTINAL: Abdomen soft and non-distended; incision c/d/i GENITALURINARY: No flank tenderness. MUSCULOSKELETAL: Equal tone and mass bilaterally. SKIN: Warm, dry, soft, appropriate color for ethnicity. No other lesions, rashes, or wounds. NEURO: Alert and Oriented X 3. No gross sensory deficits, or cognitive issues. PSYCH: Appropriate affect and mood. Objective Labs Result Diagrams: 03/30/20 05:30 03/30/20 05:30 Discharge Plan Discharge Plan Patient Disposition: Home Discharge comment: Continue your probiotic and Metamucil daily as you have been. You may take Tylenol or Ibuprofen for pain. No more than 1000mg of Tylenol three times per day. No more than 3000mg total in 24 hours from all sources (there may be Tylenol/Acetaminophen in cold or headache medicine). No more than 800mg of Ibuprofen three times per day with food. No more than 2400 mg of Ibuprofen in 24 hours. Follow low residual diet until your follow up appointment. Keep a dry dressing on your incision. Call [facility] and speak to Dr. Urena or the doctor communications engineering technician if you have redness or foul smelling drainage from your incision. Call the doctor if you have fevers, nausea, vomiting, significant bloating, especially if associated with not passing any gas or stool for more than one day. You may shower and gently let water wash over your wound. Do not scrub the wound. Do not soak in a pool, tub, or hot tub for at least two weeks. Your sutures will be removed at your follow up appointment. Please call [facility] on Wednesday to schedule a follow up for 2 to 3 weeks after the date of your surgery. Discharge orders & Medications Prescriptions: Continued levothyroxine 75 mcg tablet 75 mcg PO DAILY RF: 0 Align 4 mg Capsule 4 mg PO DAILY RF: 0 Follow up/Referrals: Caden Rivero MD [Primary Care Provider] - Prudence Urena MD [Physician] - (Please call on Wednesday to make a follow up visit to be seen in 2-3 weeks from the date of your surgery) Diet/Activity/Treatments Diet comment: Low residual Activity: No lifting/pushing/pulling more than ten lbs for six weeks. Skin/Wound/Dressing Care Report to your healthcare provider any signs of infection, such as:: chills, fever, night sweats, increased pain, unusual drainage and unusual redness Visit Report/Discharge Packet Instructions: Low-Fiber/Low-Residue Diet, DI for Colostomy or Ileostomy Reversal, [facility]: Wound Care Stand Alone Forms: Surgery Discharge Visit Report Forms: Patient Portal/API, Stroke Signs & Symptoms Discharge Data Primary Care Provider: Caden Rivero Discharges patient from system. Discharge Date/Time: 04/01/20 09:44 Quality VTE Deep Vein Thrombosis/Pulmonary Embolism Present on Admission: No
== END 2020-04-01 09:44 | disposition home or self-care (01) | DRG 331 ==
PROVIDERS: Admitting Provider Surgery; PCP Family Medicine; Referring Provider Surgery; Visit Provider Surgery
PROC: 0DBB0ZZ Excision of Ileum, Open Approach (ICD-10-PCS; CPT 44620; principal; 2020-03-27 13:15)
DX: Z43.2 Encounter for attention to ileostomy (principal); K66.0 Peritoneal adhesions (postprocedural) (postinfection); E03.9 Hypothyroidism, unspecified; Z87.19 Personal history of other diseases of the digestive system
CPT/HCPCS: 36415; 36592; 44620; 80048; 83735; 85025; 94762; J0744; J1100; J1170; J1644; J1956; J2270; J2405; J2704; J3010; J3480

== ENCOUNTER → 2020-05-14 13:27 | Outpatient (CLI) | payer OTHER, SELFPAY ==
[2020-03-27 17:21] VITALS: BMI 22.8
--- NOTE | 2020-05-14 | DI.US.S_ITS ---
ULTRASOUND OF LEFT BREAST: 05/14/2020 CLINICAL: 6 month follow-up of cysts. Comparison is made to exams dated: 05/14/2020 mammogram, 10/05/2019 ultrasound, 10/05/2019 mammogram, 09/06/2019 mammogram, 05/26/2018 mammogram, and 04/20/2017 mammogram - [facility]. Color flow and real-time ultrasound of the left breast were performed. Dent scale images of the real-time examination were reviewed. There is a 0.8 cm x 0.5 cm x 0.8 cm wider than tall irregular cyst with a septated internal wall in the left breast at 6 o'clock anterior depth. This irregular cyst displays posterior acoustic enhancement. This correlates with mammography findings. Color flow imaging demonstrates that there is no vascularity present. There also is a stable benign oval cyst in the left breast at 12 o'clock anterior depth. This oval cyst is hypoechoic. This correlates with mammography findings. IMPRESSION: PROBABLY BENIGN The 0.8 cm x 0.5 cm x 0.8 cm wider than tall irregular cyst in the left breast at 6 o'clock anterior depth is consistent with a complicated cyst and is probably benign. A follow-up ultrasound in 6 months is recommended to demonstrate stability. The stable oval cyst in the left breast at 12 o'clock anterior depth has been stable for multiple years, is consistent with a complicated cyst and is benign. Future imaging is recommended as follows: bilateral screening 11/13/2020 mammogram. Findings and recommendations were conveyed to the patient at time of exam. This exam was interpreted at Station ID: [id number]. Electronically Signed By: Deanne rodriges/:05/14/2020 15:24:47 letter sent: Followup Recommended Ultrasound BI-RADS: 3 Probably benign
--- NOTE | 2020-05-14 | DI.MG.S_ITS ---
UNILATERAL LEFT DIGITAL DIAGNOSTIC MAMMOGRAM 3D/2D SHORT-TERM FOLLOW-UP: 05/14/2020 CLINICAL: Patient returns for a 6 month follow up of the left breast. Comparison is made to exams dated: 10/05/2019 mammogram, 09/06/2019 mammogram, and 05/26/2018 mammogram - [facility]. There are scattered fibroglandular elements in left breast. There is a 0.7 cm asymmetry with an indistinct margin in the left breast at 6 o'clock middle depth. This is not significantly changed over multiple prior exams. There also is a stable benign oval equal density mass in the left breast at 12 o'clock anterior depth. This has been stable for multiple exams. There is a stable coarse calcification. No other significant masses or calcifications are seen in the breast. IMPRESSION: INCOMPLETE: NEEDS ADDITIONAL IMAGING EVALUATION The 0.7 cm oval focal asymmetry in the left breast at 6 o'clock middle depth is stable. An ultrasound is recommended for documentation. This was performed immediately following this exam. This exam was interpreted at Station ID: [id number]. NOTE: For mammograms, a report in lay terms will be sent to the patient. Approximately 15% of breast malignancies will not be visualized mammographically. In the management of a palpable breast mass, a negative mammogram must not discourage biopsy of a clinically suspicious lesion. Electronically Signed By: Deanne rodriges/:05/14/2020 14:46:18 ACR BI-RADS Category 0: Incomplete [id number]
== END ==
PROVIDERS: PCP Family Medicine; Referring Provider Family Medicine; Visit Provider Family Medicine
DX: R92.8 Other abnormal and inconclusive findings on diagnostic imaging of breast (principal); N60.02 Solitary cyst of left breast
CPT/HCPCS: 76642; 77065; G0279

== ENCOUNTER → 2020-10-14 10:07 | Outpatient (CLI) | payer OTHER, SELFPAY ==
[2020-03-27 17:21] VITALS: BMI 22.8
--- NOTE | 2020-10-14 | DI.US.S_ITS ---
ULTRASOUND OF LEFT BREAST: 10/14/2020 CLINICAL: 6 month follow-up of cysts. Comparison is made to exams dated: 05/14/2020 ultrasound, 05/14/2020 mammogram, 10/05/2019 ultrasound, 10/05/2019 mammogram, 09/06/2019 mammogram, and 05/26/2018 mammogram - [facility]. Color flow and real-time ultrasound of the left breast were performed. Ednt scale images of the real-time examination were reviewed. There is a 0.9 cm x 0.3 cm x 0.8 cm wider than tall irregular cyst with a septated internal wall in the left breast at 6 o'clock anterior depth. This irregular cyst displays posterior acoustic enhancement. This abnormality is not significantly changed and correlates with mammography findings. Color flow imaging demonstrates that there is no vascularity present. IMPRESSION: PROBABLY BENIGN The stable 0.9 cm x 0.3 cm x 0.8 cm wider than tall irregular cyst in the left breast is consistent with a complicated cyst and is probably benign. A follow-up bilateral mammogram and a left ultrasound in 12 months is recommended to demonstrate stability. Findings and recommendations were conveyed to the patient during today's evaluation. This exam was interpreted at Station ID: [id number]. Electronically Signed By: Irving Shanks M.D. at/:10/14/2020 11:55:19 letter sent: Followup Recommended Ultrasound BI-RADS: 3 Probably benign
--- NOTE | 2020-10-14 | DI.MG.S_ITS ---
BILATERAL DIGITAL DIAGNOSTIC MAMMOGRAM 3D/2D SHORT-TERM FOLLOW-UP: 10/14/2020 CLINICAL: Patient returns for a short term follow up of the left breast, due for bilateral exam. Comparison is made to exams dated: 05/14/2020 mammogram, 10/05/2019 mammogram, and 09/06/2019 mammogram - [facility]. There are scattered fibroglandular elements in both breasts. Redemonstration of previously described 0.7 cm oval focal asymmetry with an obscured margin in the left breast at 6 o'clock middle depth. This is not significantly changed and correlates with the prior exam. There also is a stable benign oval equal density mass in the left breast at 12 o'clock anterior depth. This correlates with the prior exam. No other significant masses, calcifications, or other findings are seen in either breast. IMPRESSION: INCOMPLETE: NEEDS ADDITIONAL IMAGING EVALUATION The 0.7 cm oval focal asymmetry in the left breast at 6 o'clock middle depth is indeterminate. An ultrasound is recommended for further evaluation and is scheduled to immediately follow this examination. This exam was interpreted at Station ID: [id number]. NOTE: For mammograms, a report in lay terms will be sent to the patient. Approximately 15% of breast malignancies will not be visualized mammographically. In the management of a palpable breast mass, a negative mammogram must not discourage biopsy of a clinically suspicious lesion. Electronically Signed By: Irving Shanks M.D. aty/:10/14/2020 11:47:20 ACR BI-RADS Category 0: Incomplete [id number]
== END ==
PROVIDERS: PCP Family Medicine; Referring Provider Family Medicine; Visit Provider Family Medicine
DX: R92.8 Other abnormal and inconclusive findings on diagnostic imaging of breast (principal); N60.02 Solitary cyst of left breast
CPT/HCPCS: 76642; 77066; G0279

== ENCOUNTER → 2020-11-28 13:42 | Outpatient (CLI) | payer OTHER, SELFPAY ==
[2020-03-27 17:21] VITALS: BMI 22.8
[2020-11-28 15:40] LABS: COVID19 -Nasal RAPID Negative (Negative)
== END ==
PROVIDERS: PCP Family Medicine; Visit Provider Surgery
DX: Z01.812 Encounter for preprocedural laboratory examination (principal); Z20.822 Contact with and (suspected) exposure to COVID-19
CPT/HCPCS: 87635; C9803

== ENCOUNTER 2020-11-29 08:08 | Day surgery (SDC) | payer OTHER, SELFPAY ==
[2020-03-27 17:21] VITALS: BMI 22.8
[2020-11-29] VITALS (8 sets, daily range): BP systolic 93–114; BP diastolic 54–70; PULSE 66–75; RESP 10–16; TEMP 36.3–36.9; O2SAT 97–100; BMI 24.7
--- NOTE | 2020-11-29 | PATH_ITS ---
[facility] Accession Number: [id number] . 01 Material submitted: . PART A: rectum - RECTAL STUMP PART B: body - ANASTOMOSIS . 02 Diagnosis: A. Rectal Stump, Biopsy: Rectal mucosa with no significant diagnostic abnormality. Negative for active, chronic and microscopic colitis. Negative for dysplasia and malignancy. . B. Anastomosis, Biopsy: Colonic mucosa with no diagnostic abnormality. Negative for active, chronic, and microscopic colitis. Negative for dysplasia and malignancy. . MRV 12/04/2020 1154 Local . 02 Electronically signed: . Polly Bush MD, Pathologist NPI- [id number] . 01 Gross description: . Part A: RECTAL STUMP: Received in formalin are 2 fragment(s) of meyer, soft tissue measuring 0.2 x 0.2 x 0.2 cm to 0.4 x 0.2 x 0.2 cm submitted entirely in 1 cassette(s) Part B: ANASTOMOSIS: Received in formalin are 2 fragment(s) of meyer, soft tissue measuring 0.1 x 0.1 x 0.1 cm to 0.2 x 0.2 x 0.2 cm submitted entirely in 1 cassette(s) /DEMETRI 12/02/2020 1912 Local . 02 Pathologist provided ICD-10: Z12.11 . 02 CPT . 080863, [id number] Performed at: 01 [facility] [address] [place] [address], [place], [place] [id number] MD Neal Hogue MD Phone: [phone] Performed at: 02 [facility] [address] [place], [place] [id number] MD Polly Bush MD Phone: [phone]
[2020-11-29] MEDS: SODIUM CHLORIDE 0.9% 1,000 ML 200 ML IV (08:24)
--- NOTE | 2020-11-29 09:01 | PM.HP.1 ---
History of Present Illness History of Present Illness Date Patient Seen: 11/05/19 Time Patient Seen: 08:00 Chief complaint: SDC Narrative: This is a 60 yo woman with long history of diverticulosis and diverticulitis. She had a colonoscopy 6 years ago in which sigmoid stenosis and evidence of chronic diverticulitis were seen. In August of 2019 she was admitted for several days for medical treatment of her diverticulitis. She was admitted on November 01 for laparoscopic hand assisted sigmoid colectomy. Last March she had ileostomy takedown. Since then she has been doing well. She takes quite a bit of Metamucil to keep her bowels regular, taking about 2 doses per day and drinking lots of water. Overall she feels quite well other than some occasional pain at her ileostomy incisional scar. She is here for follow-up surveillance colonoscopy 1 year out from colon resection. ROS Thirteen system review is otherwise negative other than as mentioned below and in HPI. PE: GENERAL: Well groomed and cooperative. Appears stated age. Answers questions promptly and appropriately. Vital signs noted. HENT: Normocephalic, atraumatic. Hearing intact. EYES: Conjunctiva pink, sclera white, no periorbital swelling. CARDIOVASCULAR: Regular rate. No pedal edema. RESPIRATORY: Non-tachypneic, breathing comfortably on room air. GASTROINTESTINAL: Abdomen soft and non-distended; incision is well-healed, with no palpable hernias GENITALURINARY: No flank tenderness. MUSCULOSKELETAL: Equal tone and mass bilaterally. SKIN: Warm, dry, soft, appropriate color for ethnicity. No other lesions, rashes, or wounds. NEURO: Alert and Oriented X 3. No gross sensory deficits, or cognitive issues. PSYCH: Appropriate affect and mood. Patient History Medical History Diverticulitis Diverticulosis Hx gestational diabetes Hyperglycemia Hypothyroid Large bowel stricture Stenosis colon (~08/2019) Surgical History History of 2 sections History of cholecystectomy Ileostomy status S/P laparoscopic-assisted sigmoidectomy (11/01/19) S/P LASIK surgery of both eyes Status post partial colectomy Family & Social History Family History Grandmother Cancer Social History: household members spouse,children Tobacco & Substance use: Smoking Status Never smoker alcohol intake current alcohol intake frequency a few times a month Substance Use Type does not use Meds Home Medications and Allergies Home Medications Medication Instructions Recorded Confirmed Type Align 4 mg PO DAILY 09/16/19 11/29/20 History levothyroxine 75 mcg PO DAILY 09/16/19 11/29/20 History Allergies Allergy/AdvReac Type Severity Reaction Status Date / Time Penicillins [PENICILLINS] Allergy Severe Swelling Verified 11/29/20 08:26 of Lip/Tongue/Throat Exam Vital Signs (past 8 hours): - 11/29/20 08:27 Temperature 97.6 F Pulse Rate 68 Respiratory Rate 16 Blood Pressure 114/70 Pulse Oximetry 98 Oxygen Delivery Method Room Air Assessment & Plan Assessment and plan (1) H/O ileostomy: Status: Acute (2) S/P small bowel resection: Status: Acute (3) History of diverticulosis: Status: Acute (4) Status post partial colectomy: Status: Acute Assessment & Plan narrative: Risks and benefits of screening colonoscopy and possible polypectomy were discussed with the patient including risk of bleeding, perforation, need for additional procedures, risks of anesthesia. The patient desires to proceed with the colonoscopy procedure. COVID-19 COVID-19 status: Negative Result date/Date tested (Pos, Neg/Pending): 11/28/20 Time Spent With Patient Time with patient: 15-24 minutes Quality VTE Deep Vein Thrombosis/Pulmonary Embolism Present on Admission: No
--- NOTE | 2020-11-29 09:05 | P.OP.ENDO_ITS ---
Operative Date/Time/Diagnoses Date of procedure: 11/29/20 Time of procedure: 09:05 Pre-op diagnosis: History of colon stenosis, diverticulosis, diverticulitis, colon resection, ileostomy, ileostomy takedown Post-op diagnosis: other (Slight narrowing of the anastomosis, slight diversion proctitis of the rectal pouch, no other abnormalities) Procedure & Clinicians Study performed: Colonoscopy Procedural sedation performed by the endoscopist Biopsy of rectal stump Biopsy of anastomosis Same procedure as scheduled: Yes Indications: History of colon stenosis, diverticulosis, diverticulitis, colon resection, diverting ileostomy, ileostomy takedown. Here for surveillance colonoscopy 1 year out from colon resection. Surgeon: Prudence Urena Procedure Notes SCOAP/Timeout: Performed Procedure in detail: The patient was brought to the room and placed in left lateral decubitus position with all bony prominences padded. A time-out was performed and then the patient was given procedural sedation starting with mg of Versed and [10 mcg of fentanyl. Total of 8 mg of Versed and 100 micro g of fentanyl were given for the entire procedure. Vitals were monitored throughout the procedure and remained stable. Once adequately sedated, the procedure was begun. A rectal exam was performed revealing [no abnormalitie. The colonoscope was then introduced to the rectum and advanced through the anastomosis, and to the cecum in the usual fashion. The cecum was identified by the appendiceal orifice, the mucosal tri-fold, and the ileocecal valve. The scope was then retracted while rotating side to side and examining each mucosal fold. The entire colon appeared normal, other than some scattered diverticulosis in the descending colon. At about 10 cm from the anal verge, there was a slight narrowing consistent with the anastomotic scar. Biopsies were taken to break up the scar tissue. I then examined the rectal stump, which looked relatively healthy, although it had some evidence of low-grade diversion proctitis. Biopsies were taken. [ At the conclusion of the procedure retroflexion was performed and small grade 1-2 internal hemorrhoids without stigmata of bleeding were seen. The scope was then withdrawn from the rectum the procedure was concluded. The patient tolerated the procedure well and was transferred to the PACU in stable condition. Scope withdrawal time: 14 Sedation minutes: 21 Findings: diverticulosis and other findings (Slight anastomotic narrowing, slight diversion proctitis of the rectal stump) Specimen(s): other (Biopsies of anastomosis, biopsies of rectal stump) Complications: none Impression: Normal colon other than some diverticulosis and a slight narrowing of the anastomosis. Also a slight inflammation of the rectal stump. In the future we may consider ballooning the rectal anastomosis if this becomes symp tomatic. Post-procedure Recommendations: Colonscopy in 10 years (So long as no new or concerning colorectal symptoms arise. Could consider ballooning the anastomosis if it becomes symptomatic.) and Other recommendation (Continue Metamucil, and consider adding MiraLax if needed to avoid in prevent constipation) Follow up: as needed Disposition: PACU
[2020-11-29] MEDS: fentaNYL 250 MCG/5 ML INJ IV (09:07)
[2020-11-29] MEDS: MIDAZOLAM 5 MG/5 ML VIAL IV (09:23)
== END 2020-11-29 11:28 | disposition home or self-care (01) ==
PROVIDERS: PCP Family Medicine; Referring Provider Surgery; Visit Provider Surgery
PROC: 0DJD8ZZ Inspection of Lower Intestinal Tract, Via Natural or Artificial Opening Endoscopic (ICD-10-PCS; CPT 45378; principal; 2020-11-29 09:15)
DX: Z09 Encounter for follow-up examination after completed treatment for conditions other than malignant neoplasm (principal); Z98.890 Other specified postprocedural states; Z90.49 Acquired absence of other specified parts of digestive tract; Z87.19 Personal history of other diseases of the digestive system; K62.89 Other specified diseases of anus and rectum; E03.9 Hypothyroidism, unspecified; K64.0 First degree hemorrhoids; K57.30 Diverticulosis of large intestine without perforation or abscess without bleeding
CPT/HCPCS: 45380; 99152; J2250; J3010

== ENCOUNTER → 2021-10-13 12:00 | Outpatient (CLI) | payer OTHER, SELFPAY ==
[2020-03-27 17:21] VITALS: BMI 22.8
--- NOTE | 2021-10-13 12:00 | DI.MG.S_ITS ---
BILATERAL DIGITAL DIAGNOSTIC MAMMOGRAM 3D/2D SHORT-TERM FOLLOW-UP: 10/13/2021 CLINICAL: Patient returns today to evaluate a focal asymmetry in the left breast. Due bilat. Comparison is made to exams dated: 10/14/2020 mammogram, 10/14/2020 ultrasound, 05/14/2020 mammogram, 10/05/2019 mammogram, and 09/06/2019 mammogram - [facility]. There are scattered fibroglandular elements in both breasts. There is a 0.7 cm oval focal asymmetry with an obscured margin in the left breast at 6 o'clock middle depth. This is not significantly changed and correlates with the prior exam. No other significant masses, calcifications, or other findings are seen in either breast. IMPRESSION: INCOMPLETE: NEEDS ADDITIONAL IMAGING EVALUATION The 0.7 cm oval focal asymmetry in the left breast is stable mammographically. Ultrasound recommended for further evaluation. This exam was interpreted at Station ID: [id number]. NOTE: For mammograms, a report in lay terms will be sent to the patient. Approximately 15% of breast malignancies will not be visualized mammographically. In the management of a palpable breast mass, a negative mammogram must not discourage biopsy of a clinically suspicious lesion. Electronically Signed By: Pipo Fox M.D. jr/:10/13/2021 12:57:29 ACR BI-RADS Category 0: Incomplete 3340F
--- NOTE | 2021-10-13 12:01 | DI.US.S_ITS ---
PROCEDURE: US BREAST LT LIMITED COMPARISON: None. INDICATIONS: 12 MONTH FOLLOW UP FINDINGS: IMPRESSION: Dictated by: Pipo Fox M.D. on 10/13/2021 at 13:32 Approved by: Pipo Fox M.D. on 10/13/2021 at 13:34
--- NOTE | 2021-10-13 12:44 | DI.US.S_ITS ---
Date: 10/13/2021 12:57 At the request of: SUNDAY HAQUE Procedure: US breast LT limited ULTRASOUND OF LEFT BREAST: 10/13/2021 CLINICAL: Patient returns today to evaluate a focal asymmetry in the left breast. Comparison is made to exams dated: 10/14/2020 mammogram, 10/13/2021 mammogram, 10/14/2020 ultrasound, 05/14/2020 ultrasound, 05/14/2020 mammogram, and 10/05/2019 [facility]. Real-time ultrasound of the left breast was performed. The 0.7 cm complicated cyst seen previously is unchanged and correlates with mammography findings. IMPRESSION: BENIGN There is no sonographic evidence of malignancy. The stable 0.7 cm complicated cyst in the left breast is benign. Return to annual mammogram screening schedule is recommended. This exam was interpreted at Station ID: [id number]. Electronically Signed By: Pipo Fox M.D. jr/:10/13/2021 12:59:52 letter sent: Normal Exam Ultrasound BI-RADS: 2 Benign
== END ==
PROVIDERS: PCP Family Medicine; Referring Provider Family Medicine; Visit Provider Family Medicine
DX: R92.8 Other abnormal and inconclusive findings on diagnostic imaging of breast (principal); N60.02 Solitary cyst of left breast
CPT/HCPCS: 76642; 77066; G0279

== ENCOUNTER → 2022-10-22 08:21 | Outpatient (CLI) | payer OTHER, SELFPAY ==
[2020-03-27 17:21] VITALS: BMI 22.8
--- NOTE | 2022-10-22 | DI.MG.S_ITS ---
BILATERAL DIGITAL SCREENING MAMMOGRAM 3D/2D WITH CAD: 10/22/2022 CLINICAL: Routine screening. Family history of breast cancer. Comparison is made to exams dated: 10/13/2021 mammogram, 10/14/2020 mammogram, and 09/06/2019 mammogram - [facility]. There are scattered areas of fibroglandular density in both breasts (category b / 25%-50% glandular tissue). Current study was also evaluated with a Computer Aided Detection (CAD) system. There is a focal asymmetry with an indistinct margin in the right breast at 2 o'clock middle depth. No other significant masses, calcifications, or other findings are seen in either breast. IMPRESSION: INCOMPLETE: NEEDS ADDITIONAL IMAGING EVALUATION The focal asymmetry in the right breast is indeterminate. A diagnostic mammogram and ultrasound is recommended. This exam was interpreted at Station ID: [id number]. NOTE: For mammograms, a report in lay terms will be sent to the patient. Approximately 15% of breast malignancies will not be visualized mammographically. In the management of a palpable breast mass, a negative mammogram must not discourage biopsy of a clinically suspicious lesion. Electronically Signed By: Pipo Fox M.D., jr/raul:10/22/2022 12:45:08 letter sent: Additional Imaging Needed ACR BI-RADS Category 0: Incomplete 3340F
== END ==
PROVIDERS: PCP Family Medicine; Referring Provider Family Medicine; Visit Provider Family Medicine
DX: Z12.31 Encounter for screening mammogram for malignant neoplasm of breast (principal); Z80.3 Family history of malignant neoplasm of breast
CPT/HCPCS: 77063; 77067

== ENCOUNTER → 2022-11-25 14:19 | Outpatient (CLI) | payer OTHER, SELFPAY ==
[2020-03-27 17:21] VITALS: BMI 22.8
--- NOTE | 2022-11-25 14:21 | DI.MG.S_ITS ---
UNILATERAL RIGHT DIGITAL DIAGNOSTIC MAMMOGRAM 3D/2D WITH ADDITIONAL VIEWS: 11/25/2022 CLINICAL: Additional evaluation requested from prior study. Comparison is made to exams dated: 10/22/2022 mammogram, 10/13/2021 mammogram, 10/14/2020 mammogram, and 05/14/2020 mammogram - [facility]. There are scattered areas of fibroglandular density in the right breast (category b / 25%-50% glandular tissue). There is a focal asymmetry in the right breast at 2 o'clock middle depth. This is less prominent. No other significant masses or calcifications are seen in the breast. IMPRESSION: INCOMPLETE: NEEDS ADDITIONAL IMAGING EVALUATION The focal asymmetry in the right breast is indeterminate. A targeted ultrasound is recommended and will immediately follow. This exam was interpreted at Station ID: [id number]. NOTE: For mammograms, a report in lay terms will be sent to the patient. Approximately 15% of breast malignancies will not be visualized mammographically. In the management of a palpable breast mass, a negative mammogram must not discourage biopsy of a clinically suspicious lesion. Electronically Signed By: Rey Tejada M.D. [facility]/:11/25/2022 14:51:31 ACR BI-RADS Category 0: Incomplete 3340F
--- NOTE | 2022-11-25 14:57 | DI.US.S_ITS ---
Procedure: US breast RT limited LIMITED ULTRASOUND OF RIGHT BREAST: 11/25/2022 CLINICAL: Patient returns today to evaluate an asymmetry in the right breast. Comparison is made to exams dated: 11/25/2022 mammogram, 10/22/2022 mammogram, 10/13/2021 mammogram, 10/14/2020 mammogram, and 09/06/2019 mammogram - [facility]. Color flow and real-time ultrasound of the right breast 2 o'clock region were performed. Dent scale images of the real-time examination were reviewed. There is a benign 0.7 cm x 0.5 cm x 0.3 cm normal lymph node with a circumscribed margin in the right breast at 2 o'clock middle depth 4 cm from the nipple. This normal lymph node displays fatty hilum. This correlates with mammography findings. Color flow imaging demonstrates that there is no vascularity present. IMPRESSION: BENIGN There is no sonographic evidence of malignancy. Small lymph node in the right breast is benign. A 1 year screening mammogram is recommended. Exam findings were conveyed to the patient. This exam was interpreted at Station ID: [id number]. Electronically Signed By: Rey Tejada M.D. Continued Report - Page 2 of 2 Patient Name: JOEY ROSS date: 1960 Sex: F Attending Physician: Mat Indications: Date: 11/25/2022 15:24 At the request of: SUNDAY HAQUE Procedure: US breast RT limited slc/:11/25/2022 15:24:41 letter sent: Normal Exam Ultrasound BI-RADS: 2 Benign
== END ==
PROVIDERS: PCP Family Medicine; Referring Provider Family Medicine; Visit Provider Family Medicine
DX: N64.89 Other specified disorders of breast (principal); R92.8 Other abnormal and inconclusive findings on diagnostic imaging of breast
CPT/HCPCS: 76642; 77065; G0279

== ENCOUNTER → 2023-11-29 08:35 | Outpatient (CLI) | payer OTHER, SELFPAY ==
[2020-03-27 17:21] VITALS: BMI 22.8
--- NOTE | 2023-11-29 08:37 | DI.MG.S_ITS ---
BILATERAL DIGITAL SCREENING MAMMOGRAM 3D/2D WITH CAD: 11/29/2023 CLINICAL: Routine screening. Family history breast cancer. Comparison is made to exams dated: 11/25/2022 mammogram, 10/22/2022 mammogram, 10/13/2021 mammogram, and 10/14/2020 mammogram - [facility]. There are scattered areas of fibroglandular density in both breasts (category b / 25%-50% glandular tissue). Current study was also evaluated with a Computer Aided Detection (CAD) system. There is a focal asymmetry in the right breast at 2 o'clock middle depth. No other significant masses, calcifications, or other findings are seen in either breast. IMPRESSION: INCOMPLETE: NEEDS ADDITIONAL IMAGING EVALUATION The focal asymmetry in the right breast is indeterminate. Additional views with possible ultrasound are recommended. Based on the Tyrer Cuzick model (a risk assessment model) the patient's lifetime risk is 15.9% and her 10 year risk is 6.8%. According to the ACR, ACS, and NCCN guidelines, an annual breast MRI exam along with mammogram is recommended if the patient's lifetime risk is 20% or greater. This exam was interpreted at Station ID: [id number]. NOTE: For mammograms, a report in lay terms will be sent to the patient. Approximately 15% of breast malignancies will not be visualized mammographically. In the management of a palpable breast mass, a negative mammogram must not discourage biopsy of a clinically suspicious lesion. Electronically Signed By: Keya araujo/raul:11/29/2023 15:14:59 letter sent: Additional Imaging Needed ACR BI-RADS Category 0: Incomplete 3340F
== END ==
PROVIDERS: PCP Family Medicine; Referring Provider Family Medicine; Visit Provider Family Medicine
DX: Z12.31 Encounter for screening mammogram for malignant neoplasm of breast (principal); Z80.3 Family history of malignant neoplasm of breast; R92.323 Mammographic fibroglandular density, bilateral breasts
CPT/HCPCS: 77063; 77067

== ENCOUNTER → 2023-12-22 12:26 | Outpatient (CLI) | payer OTHER, SELFPAY ==
[2020-03-27 17:21] VITALS: BMI 22.8
--- NOTE | 2023-12-22 12:27 | DI.MG.S_ITS ---
UNILATERAL RIGHT DIGITAL DIAGNOSTIC MAMMOGRAM 3D/2D WITH ADDITIONAL VIEWS: 12/22/2023 CLINICAL: Additional evaluation requested from prior study. Comparison is made to exams dated: 11/29/2023 mammogram, 11/25/2022 mammogram, and 10/22/2022 mammogram - [facility]. There are scattered areas of fibroglandular density in the right breast (category b / 25%-50% glandular tissue). There is a focal asymmetry in the right breast at 3 o'clock middle depth. This is seen in additional views. No other significant masses or calcifications are seen in the breast. IMPRESSION: INCOMPLETE: NEEDS ADDITIONAL IMAGING EVALUATION The focal asymmetry in the right breast is indeterminate. A targeted ultrasound of the right breast is recommended and will be performed immediately following this exam. Based on the Tyrer Cuzick model (a risk assessment model) the patient's lifetime risk is 15.9% and her 10 year risk is 6.8%. According to the ACR, ACS, and NCCN guidelines, an annual breast MRI exam along with mammogram is recommended if the patient's lifetime risk is 20% or greater. This exam was interpreted at Station ID: [id number]. NOTE: For mammograms, a report in lay terms will be sent to the patient. Approximately 15% of breast malignancies will not be visualized mammographically. In the management of a palpable breast mass, a negative mammogram must not discourage biopsy of a clinically suspicious lesion. Electronically Signed By: Keya Roth M.D. lk/:12/22/2023 12:55:43 ACR BI-RADS Category 0: Incomplete 3340F
--- NOTE | 2023-12-22 12:27 | DI.US.S_ITS ---
ULTRASOUND OF RIGHT BREAST: 12/22/2023 CLINICAL: Patient returns today to evaluate a focal asymmetry in the right breast. Comparison is made to exams dated: 12/22/2023 mammogram, 11/29/2023 mammogram, 11/25/2022 ultrasound, 11/25/2022 mammogram, 10/22/2022 mammogram, and 10/13/2021 mammogram - [facility]. Color flow and real-time ultrasound of the right breast were performed on the areas of interest. Dent scale images of the real-time examination were reviewed. There is a 0.9 cm x 0.9 cm x 0.4 cm cluster of microcysts in the right breast at 2 o'clock middle depth. This cluster of irregular microcysts displays posterior acoustic enhancement. This correlates with mammography findings. Color flow imaging demonstrates that there is no vascularity present. There also is a 0.5 cm x 0.8 cm x 0.2 cm cluster of microcysts in the right breast at 2 o'clock posterior depth. This cluster of microcysts displays posterior acoustic enhancement. This correlates as an incidental finding. Color flow imaging demonstrates that there is no vascularity present. IMPRESSION: PROBABLY BENIGN The 0.9 cm x 0.9 cm x 0.4 cm cluster of irregular micro cysts in the right breast at 2 o'clock middle depth is probably benign. The 0.5 cm x 0.8 cm x 0.2 cm cluster of irregular micro cysts in the right breast at 2 o'clock posterior depth is probably benign. A follow-up ultrasound in 6 months is recommended to demonstrate stability. This exam was interpreted at Station ID: [id number]. Electronically Signed By: Keya araujo/:12/22/2023 13:19:24 letter sent: Followup Recommended Ultrasound BI-RADS: 3 Probably benign
== END ==
PROVIDERS: PCP Family Medicine; Referring Provider Family Medicine; Visit Provider Family Medicine
DX: R92.8 Other abnormal and inconclusive findings on diagnostic imaging of breast (principal); N60.01 Solitary cyst of right breast; R92.321 Mammographic fibroglandular density, right breast
CPT/HCPCS: 76642; 77065; G0279

== ENCOUNTER → 2024-06-21 09:15 | Outpatient (CLI) | payer OTHER, SELFPAY ==
[2020-03-27 17:21] VITALS: BMI 22.8
--- NOTE | 2024-06-21 09:15 | DI.US.S_ITS ---
LIMITED ULTRASOUND OF RIGHT BREAST: 06/21/2024 CLINICAL: 6 month follow up, focal asymmetry in the right breast. Comparison is made to exams dated: 12/22/2023 ultrasound, 12/22/2023 mammogram, 11/29/2023 mammogram, 11/25/2022 ultrasound, 11/25/2022 mammogram, and 10/22/2022 mammogram - [facility]. Real-time ultrasound of the right breast 2 o'clock region was performed. Dent scale images of the real-time examination were reviewed. No significant abnormalities were seen sonographically in the right breast. IMPRESSION: NEGATIVE There is no sonographic evidence of malignancy. Previously seen cyst clusters are no longer present and are benign. A 1 year screening mammogram is recommended. Exam findings were conveyed to the patient. This exam was interpreted at Station ID: [id number]. Electronically Signed By: Rey Tejada M.D. slc/:06/21/2024 09:47:46 letter sent: Normal Exam Ultrasound BI-RADS: 1 Negative
== END ==
PROVIDERS: PCP Family Medicine; Referring Provider Family Medicine; Visit Provider Family Medicine
DX: N64.89 Other specified disorders of breast (principal)
CPT/HCPCS: 76642

== ENCOUNTER → 2024-08-19 10:32 | Outpatient (CLI) | payer OTHER, SELFPAY ==
[2020-03-27 17:21] VITALS: BMI 22.8
--- NOTE | 2024-08-19 10:33 | DI.RAD.S_ITS ---
PROCEDURE: XR CHEST 2V INDICATIONS: Cough TECHNIQUE: 2 views of the chest were acquired. COMPARISON: [facility], , CHEST 1 VIEW, 06/09/2014, 8:59. FINDINGS: Surgical changes and devices: None. Lungs and pleura: Lungs are clear. No pleural effusions or pneumothorax. Mediastinum: Mediastinal contours are normal. Heart size is normal. Bones and chest wall: No suspicious bony abnormalities. Soft tissues appear unremarkable. IMPRESSION: No acute cardiopulmonary abnormality is seen. Dictated by: Salomón Rodríguez M.D. on 08/19/2024 at 11:48 Approved by: Salomón Rodríguez M.D. on 08/19/2024 at 11:48
== END ==
LOC: RAD 10:33
PROVIDERS: PCP Family Medicine; Referring Provider Nurse Practitioner Family; Visit Provider Nurse Practitioner Family
DX: R05.9 Cough, unspecified (principal)
CPT/HCPCS: 71046

== ENCOUNTER → 2024-12-15 08:32 | Outpatient (CLI) | payer OTHER, SELFPAY ==
[2020-03-27 17:21] VITALS: BMI 22.8
--- NOTE | 2024-12-15 08:33 | DI.MG.S_ITS ---
BILATERAL DIGITAL SCREENING MAMMOGRAM 3D/2D WITH CAD: 12/15/2024 CLINICAL: Routine screening. Family history of breast cancer. Comparison is made to exams dated: 11/29/2023 mammogram, 10/22/2022 mammogram, and 10/13/2021 mammogram - [facility]. There are scattered areas of fibroglandular density (category b / 25%-50% glandular tissue). Current study was also evaluated with a Computer Aided Detection (CAD) system. No significant masses, calcifications, or other findings are seen in either breast. There has been no significant interval change. IMPRESSION: NEGATIVE There is no mammographic evidence of malignancy. A 1 year screening mammogram is recommended. Based on the Tyrer Cuzick model (a risk assessment model) the patient's lifetime risk is 15.5% and her 10 year risk is 6.8%. According to the ACR, ACS, and NCCN guidelines, an annual breast MRI exam along with mammogram is recommended if the patient's lifetime risk is 20% or greater. This exam was interpreted at Station ID: [id number]. NOTE: For mammograms, a report in lay terms will be sent to the patient. Approximately 15% of breast malignancies will not be visualized mammographically. In the management of a palpable breast mass, a negative mammogram must not discourage biopsy of a clinically suspicious lesion. Electronically Signed By: Deanne rodriges/raul:12/15/2024 15:01:57 letter sent: Normal Exam ACR BI-RADS Category 1: Negative
== END ==
LOC: MAMMO 08:33
PROVIDERS: PCP Family Medicine; Referring Provider Family Medicine; Visit Provider Family Medicine
DX: Z12.31 Encounter for screening mammogram for malignant neoplasm of breast (principal); Z80.3 Family history of malignant neoplasm of breast
CPT/HCPCS: 77063; 77067

== ENCOUNTER → 2025-03-15 13:54 | Outpatient (CLI) | payer OTHER, SELFPAY ==
[2020-03-27 17:21] VITALS: BMI 22.8
--- NOTE | 2025-03-15 13:55 | DI.RAD.S_ITS ---
PROCEDURE: XR DEXA AXIAL SKELETON INDICATIONS: postmenopausal screening COMPARISON: DEXA 2013 report only FINDINGS: Lumbar Spine: Bone mineral density 1.1-9 g/cm2, T score 2.4. Left Femoral Neck: Bone mineral density 0.639 g/cm2, T score -1.9. Left Hip: Bone mineral density 0.756 g/cm2, T score -1.5. Fracture Risk Calculation (when applicable): 10-year fracture risk of a major osteoporotic fracture 9.7 percent and of a hip fracture 1.2 percent. (T score greater or equal to -1.0 to: NORMAL) (T score from -1.1 to -2.4: OSTEOPENIA) (T score less than or equal to -2.5: OSTEOPOROSIS) IMPRESSION: Osteopenia within the left femoral neck and hip ranging between 8 and 11% progressive bone mineral density loss compared to report from 2013. Images are not available for comparison. Follow-up guidelines as follows: Osteoporosis: Consider a repeat DEXA and Vertebral Fracture Assessment (VFA) exam in 2 years or sooner if medically necessary, to reassess this patient's status. Osteopenia: Consider a repeat DEXA in 2-3 years to reassess this patient's status, or if there is a new clinical indication. Normal: Consider a repeat DEXA in 5 years or sooner, or if there is a new clinical indication. All treatment decisions require clinical judgment and consideration of individual patient factors, including patient preferences, comorbidities, previous drug use, risk factors not captured in the FRAX model (e.g., frailty, falls, vitamin D deficiency, increased bone turnover, interval significant decline in bone density ) and possible under- or over-estimation of fracture risk by FRAX. In addition, the NOF Guide recommends that FDA-approved medical therapies be considered in postmenopausal women and men age >= 50 years with a: * Hip or vertebral (clinical or morphometric) fracture * T-score of <=-2.5 at the spine or hip * Ten-year fracture probability by FRAX of >= 3% for hip fracture or >=20% for major osteoporotic fracture. Dictated by: Flower Dumont M.D. on 03/18/2025 at 19:31 Approved by: Flower Dumont M.D. on 03/18/2025 at 19:32
== END ==
PROVIDERS: PCP Family Medicine; Referring Provider Family Medicine; Visit Provider Family Medicine
DX: M85.89 Other specified disorders of bone density and structure, multiple sites (principal); Z78.0 Asymptomatic menopausal state
CPT/HCPCS: 77080